=== PATIENT | male | born 1955 | race Caucasian/White ===

== ENCOUNTER 2023-01-24 12:53 | Emergency (ER) | payer MEDICARE, MEDICAID, SELFPAY ==
--- NOTE | ~2023-01-24 | XR_ITS ---
EXAMINATION: XR CHEST CLINICAL INFORMATION: Short of breath COMPARISON: None available. TECHNIQUE: 2 views of the chest were obtained. FINDINGS: Left chest wall pacer with lead over the right ventricle. The lungs are well expanded. There is no focal consolidation, edema, or effusion. No pneumothorax. The cardiomediastinal silhouette is within normal limits. No acute osseous abnormality. Degenerative changes of the spine. XR/XR chest 2V IMPRESSION: No acute pulmonary disease.
--- NOTE | 2023-01-24 13:03 | ED.SOB ---
HPI - SOB/Dyspnea General Chief Complaint: Upper Respiratory Symptoms Stated Complaint: SOB Time Seen by Provider: 01/24/23 15:00 History of Present Illness HPI Narrative: Patient complains of cough wheezing and chest tightness worsening known over the past 2 days, he does have a history of COPD, he does have a history of HIV but his last visit to his infectious disease doctor he was told that CD4 count is normal and that his viral load is very low and that he is doing great in terms of the HIV, this last visit was several weeks ago He denies fever chills no difficulty swallowing no chest pain no abdominal pain no nausea vomiting or diarrhea no leg swelling no calf pain or tenderness Related Data Previous Rx's Medication Instructions Recorded albuterol sulfate 90 mcg/actuation 2 puff inhalation Q4-6H PRN 01/24/23 aerosol inhaler shortness of breath or wheezing #8.5 grams doxycycline hyclate 100 mg capsule 100 mg PO BID 7 days #14 caps 01/24/23 prednisone 20 mg tablet 60 mg PO DAILY 5 days #15 tabs 01/24/23 Allergies Allergy/AdvReac Type Severity Reaction Status Date / Time No Known Allergies Allergy Verified 01/24/23 13:08 [facility] Past Medical History Source: nursing notes reviewed Physical Exam Vital Signs: Vital Signs: Last Vital Signs Temp 98.3 F 01/24/23 13:05 Pulse 79 01/24/23 15:46 Resp 18 01/24/23 15:46 BP 130/78 01/24/23 13:05 Pulse Ox 97 01/24/23 18:16 O2 Del Method Room Air 01/24/23 18:16 BMI result Body Mass Index 28.1 general appearance is no distress, speaking full sentences The sinuses nontender The pharynx is clear without redness swelling or exudate Neck is supple The chest had bilateral wheezes throughout lung billings, good air movement, no respiratory distress, speaking full sentences The abdomen soft nontender Extremities no edema no calf tenderness or swelling Skin no Course Course Course Narrative: This is a rapid medical exam. Deferred additional HPI, ROS, PE to primary provider. 67 yo male with history of tobacco smoking, HIV on genvoya, ICD, DVT/PE on coumadin here with 4 days of shortness of breath, headache, chest congestion, worsened with laying flat/ at nighttime. NO chest pain, fevers. Has +sick contact at home. Will check labs, EKG, CXR, viral testing VSS Patient responded well to nebulizer treatments and prednisone, and his wheezing improved as well as his sense of shortness of breath, prior to discharge she was tested ambulating with no drop in his oxygen saturation which had now improved to a normal level, his respiratory rate was 16, he did feel fine and wanted to go home His chest x-ray was normal, but as he has history of COPD who was prescribed antibiotic for bronchitis as well as prednisone and a refill of his albuterol inhaler Medications Administered Discontinued Medications Generic Name Dose Route Start Last Admin Trade Name Freq PRN Reason Stop Dose Admin Albuterol Sulfate 7.5 mg/ 0 mg 01/24/23 15:41 01/24/23 15:45 Albuterol/Ipratropium 3 ml INHALE 01/24/23 15:42 1 each ONCE ONE Administration Prednisone 60 mg 01/24/23 15:42 01/24/23 15:52 Prednisone 20 Mg Tablet PO 01/24/23 15:43 60 mg ONCE ONE Administration Medical Decision Making Lab Data 01/24/23 13:21 01/24/23 13:21 Labs: Lab Results 01/24/23 01/24/23 01/24/23 Range/Units 13:21 13:21 13:21 WBC 8.1 (4.8-10.8) X10*3/uL RBC 4.26 L (4.60-5.80) X10*6/uL Hgb 13.8 L (14.0-18.0) g/dl Hct 41.2 L (42.0-52.0) % MCV 96.7 (80.0-98.0) fL MCH 32.4 (27.0-33.0) pg MCHC 33.5 (31.0-36.0) g/dl RDW 13.5 (11.0-16.0) % Plt Count 177 (160-400) X10*3/uL MPV 9.5 (9.4-12.4) fL Immature Gran % (Auto) 0.2 (0.0-0.4) % Neut % (Auto) 61.7 (45-73) % Lymph % (Auto) 22.1 (20-40) % [place] % (Auto) 8.2 (2-11) % Eos % (Auto) 7.1 H (0-4) % Baso % (Auto) 0.7 (0-2) % Lymph # (Auto) 1.8 (1.2-4.9) X10*3/uL [place] # (Auto) 0.7 (0.1-1.2) X10*3/uL Eos # (Auto) 0.6 H (0.0-0.4) X10*3/uL Baso # (Auto) 0.1 (0.0-0.2) X10*3/uL Abs Immat Gran (auto) 0.02 (0.00-0.03) X10*3/uL Absolute Neuts (auto) 5.0 (2.0-8.3) x10*3/uL Absolute Nucleated RBC 0.000 (0.0-0.012) X10*3/uL Nucleated RBC % (auto) 0.0 (0.0-0.2) /100WBC PT 24.3 H (10.0-13.1) SEC INR 2.1 H (0.9-1.1) Sodium 139 (135-145) mmol/L Potassium 4.1 (3.3-5.1) mmol/L Chloride 106 (96-108) mmol/L Carbon Dioxide 22 (22-29) mmol/L Anion Gap 15 (12-20) BUN 21 H (9-16) mg/dL Creatinine 2.28 H (0.5-1.4) mg/dL Estim Creat Clear Calc 35.1 Estimated GFR 29 Random Glucose 99 (60-115) mg/dL Calcium 9.6 (8.4-10.2) mg/dL Troponin I High Sens (<3.5-35.0) ng/L B-Natriuretic Peptide (<100) pg/mL COVID-19 (DARIEN) (Negative) COVID-19 Clin Com Influenza Type A (PRATIK) (Negative) Influenza Type B (PRATIK) (Negative) Influenza A & B Note 01/24/23 01/24/23 01/24/23 Range/Units 13:21 13:21 13:21 WBC (4.8-10.8) X10*3/uL RBC (4.60-5.80) X10*6/uL Hgb (14.0-18.0) g/dl Hct (42.0-52.0) % MCV (80.0-98.0) fL MCH (27.0-33.0) pg MCHC (31.0-36.0) g/dl RDW (11.0-16.0) % Plt Count (160-400) X10*3/uL MPV (9.4-12.4) fL Immature Gran % (Auto) (0.0-0.4) % Neut % (Auto) (45-73) % Lymph % (Auto) (20-40) % [place] % (Auto) (2-11) % Eos % (Auto) (0-4) % Baso % (Auto) (0-2) % Lymph # (Auto) (1.2-4.9) X10*3/uL [place] # (Auto) (0.1-1.2) X10*3/uL Eos # (Auto) (0.0-0.4) X10*3/uL Baso # (Auto) (0.0-0.2) X10*3/uL Abs Immat Gran (auto) (0.00-0.03) X10*3/uL Absolute Neuts (auto) (2.0-8.3) x10*3/uL Absolute Nucleated RBC (0.0-0.012) X10*3/uL Nucleated RBC % (auto) (0.0-0.2) /100WBC PT (10.0-13.1) SEC INR (0.9-1.1) Sodium (135-145) mmol/L Potassium (3.3-5.1) mmol/L Chloride (96-108) mmol/L Carbon Dioxide (22-29) mmol/L Anion Gap (12-20) BUN (9-16) mg/dL Creatinine (0.5-1.4) mg/dL Estim Creat Clear Calc Estimated GFR Random Glucose (60-115) mg/dL Calcium (8.4-10.2) mg/dL Troponin I High Sens 6.7 (<3.5-35.0) ng/L B-Natriuretic Peptide < 10 (<100) pg/mL COVID-19 (DARIEN) (Negative) COVID-19 Clin Com Influenza Type A (PRATIK) Negative (Negative) Influenza Type B (PRATIK) Negative (Negative) Influenza A & B Note See Note 01/24/23 Range/Units 13:21 WBC (4.8-10.8) X10*3/uL RBC (4.60-5.80) X10*6/uL Hgb (14.0-18.0) g/dl Hct (42.0-52.0) % MCV (80.0-98.0) fL MCH (27.0-33.0) pg MCHC (31.0-36.0) g/dl RDW (11.0-16.0) % Plt Count (160-400) X10*3/uL MPV (9.4-12.4) fL Immature Gran % (Auto) (0.0-0.4) % Neut % (Auto) (45-73) % Lymph % (Auto) (20-40) % [place] % (Auto) (2-11) % Eos % (Auto) (0-4) % Baso % (Auto) (0-2) % Lymph # (Auto) (1.2-4.9) X10*3/uL [place] # (Auto) (0.1-1.2) X10*3/uL Eos # (Auto) (0.0-0.4) X10*3/uL Baso # (Auto) (0.0-0.2) X10*3/uL Abs Immat Gran (auto) (0.00-0.03) X10*3/uL Absolute Neuts (auto) (2.0-8.3) x10*3/uL Absolute Nucleated RBC (0.0-0.012) X10*3/uL Nucleated RBC % (auto) (0.0-0.2) /100WBC PT (10.0-13.1) SEC INR (0.9-1.1) Sodium (135-145) mmol/L Potassium (3.3-5.1) mmol/L Chloride (96-108) mmol/L Carbon Dioxide (22-29) mmol/L Anion Gap (12-20) BUN (9-16) mg/dL Creatinine (0.5-1.4) mg/dL Estim Creat Clear Calc Estimated GFR Random Glucose (60-115) mg/dL Calcium (8.4-10.2) mg/dL Troponin I High Sens (<3.5-35.0) ng/L B-Natriuretic Peptide (<100) pg/mL COVID-19 (DARIEN) Negative (Negative) COVID-19 Clin Com See Note Influenza Type A (PRATIK) (Negative) Influenza Type B (PRATIK) (Negative) Influenza A & B Note Discharge Plan Discharge Clinical Impression: COPD exacerbation Patient Disposition: Home, Self-Care Additional Instructions: Your treated with albuterol and prednisone here with very good improvement, your vital signs were normal, we checked it with walking and they did not go down As you have been coughing and bringing up sputum for several days we are treating bronchitis with doxycycline antibiotic It is very safe as you do not have a machine to take 6 puffs instead of 2 if 2 does not work as this will bring it close to equal and of an actual nebulizer treatment If your albuterol does not bring relief at home and UR short of breath come back to the ER any time for any worse condition any difficulty breathing any concerns Prescriptions: New doxycycline hyclate 100 mg capsule 100 mg PO BID 7 Days Qty: 14 0RF albuterol sulfate 90 mcg/actuation HFA aerosol inhaler 2 puff inhalation Q4-6H PRN (Reason: shortness of breath or wheezing) Qty: 8.5 0RF prednisone 20 mg tablet 60 mg PO DAILY 5 Days Qty: 15 0RF Interventions: ED Discharge Assessment Last Done: 01/24/23 18:17 Discharge Date/Time: 01/24/23 18:17
[2023-01-24 13:05] VITALS: BP 130/78; PULSE 88; RESP 18; TEMP 36.8; O2SAT 93; BMI 28.1
--- NOTE | 2023-01-24 13:08 | ECG_ITS ---
Test Reason : sob Blood Pressure : / mmHG Vent. Rate : 087 BPM Atrial Rate : 087 BPM P-R Int : 192 ms QRS Dur : 090 ms QT Int : 368 ms P-R-T Axes : 045 048 065 degrees QTc Int : 442 ms Normal sinus rhythm Normal ECG No previous ECGs available Referred By: Sherin Murphy Electronically Signed By:YULY CHA MD
[2023-01-24 13:30] LABS: MANUAL DIFF FLAG NO
[2023-01-24 13:32] LABS: Basophils Absolute Auto 0.1 X10*3/uL (0.0-0.2); Basophils Percent Auto 0.7 % (0-2); Eosinophils Absolute Auto 0.6 X10*3/uL (0.0-0.4); Eosinophils Percent Auto 7.1 % (0-4); Hematocrit 41.2 % (42.0-52.0); Hemoglobin 13.8 g/dl (14.0-18.0); Imm Gran Abs Auto 0.02 X10*3/uL (0.00-0.03); Imm Gran Pct Auto 0.2 % (0.0-0.4); Lymphocytes Absolute Auto 1.8 X10*3/uL (1.2-4.9); Lymphocytes Percent Auto 22.1 % (20-40); Mean Corpuscular HGB Conc 33.5 g/dl (31.0-36.0); Mean Corpuscular Hemoglobin 32.4 pg (27.0-33.0); Mean Corpuscular Volume 96.7 fL (80.0-98.0); Mean Platelet Volume 9.5 fL (9.4-12.4); Monocytes Absolute Auto 0.7 X10*3/uL (0.1-1.2); Monocytes Percent Auto 8.2 % (2-11); Neutrophils Percent Auto 61.7 % (45-73); Platelet Count 177 X10*3/uL (160-400); Red Blood Count 4.26 X10*6/uL (4.60-5.80); Red Cell Distribution Width 13.5 % (11.0-16.0); White Blood Count 8.1 X10*3/uL (4.8-10.8)
[2023-01-24 13:41] LABS: INTERNATIONAL NORM RATIO 2.1 (0.9-1.1); Prothrombin Time 24.3 SEC (10.0-13.1)
[2023-01-24 13:44] LABS: Anion Gap 15 (12-20); Blood Urea Nitrogen 21 mg/dL (9-16); Calcium 9.6 mg/dL (8.4-10.2); Carbon Dioxide 22 mmol/L (22-29); Chloride 106 mmol/L (96-108); Creatinine Clr Calc Pharmacy 35.1; Estimated Glomerular Filt Rate 29; Glucose Random 99 mg/dL (60-115); Potassium 4.1 mmol/L (3.3-5.1); Sodium 139 mmol/L (135-145)
[2023-01-24 13:49] LABS: IDNOW Serial# 9DB6401D; Influenza A Negative (Negative); Influenza B2 Negative (Negative)
[2023-01-24 13:52] LABS: B Type Natriuretic Peptide < 10 pg/mL (<100)
[2023-01-24 13:53] LABS: Troponin-I High Sensitivity 6.7 ng/L (<3.5-35.0)
[2023-01-24 14:01] LABS: COVID-19 Test Negative (Negative); IDNOW Serial# BCCEAD1C
[2023-01-24 15:46] VITALS: PULSE 79; RESP 18; O2SAT 99
[2023-01-24] MEDS: predniSONE 20 MG TABLET 60 MG PO (15:52)
[2023-01-24 18:16] VITALS: O2SAT 97
== END 2023-01-24 18:17 | disposition home or self-care (01) ==
PROVIDERS: Nurse Practitioner Family; Emergency Provider Emergency Medicine; PCP Family Medicine
DX: J44.1 Chronic obstructive pulmonary disease with (acute) exacerbation (principal); R06.02 Shortness of breath; Z20.822 Contact with and (suspected) exposure to COVID-19; Z20.828 Contact with and (suspected) exposure to other viral communicable diseases; Z79.899 Other long term (current) drug therapy
CPT/HCPCS: 71046; 80048; 83880; 84484; 85025; 85610; 87502; 87635; 93005; 94640; 99284; 99285

== ENCOUNTER 2023-02-14 08:08 | Outpatient (REF) | payer MEDICARE, MEDICAID, SELFPAY ==
--- NOTE | ~2023-02-14 | US_ITS ---
EXAMINATION: US ABDOMEN LIMITED CLINICAL INFORMATION: Liver disease. Hepatitis B. COMPARISON: None available. TECHNIQUE: Real-time imaging of the right upper quadrant abdominal viscera. Limited visualization due to bowel gas and body habitus. FINDINGS: PANCREAS: Limited visualization. LIVER: Hepatic echotexture is heterogeneous with increase in echogenicity of the liver which is characteristic of primary hepatocellular disease, possibly due to hepatic steatosis and further limits visualization. GALLBLADDER: No gallstones. Borderline gallbladder wall thickening of 3 mm. COMMON BILE DUCT: Normal in caliber measuring 0.2 cm in diameter. RIGHT KIDNEY: No hydronephrosis. No renal calculi. Renal cortical thickness is normal. Limited visualization. The kidney measures 9.6 cm in maximum dimension. FREE FLUID: None. US/US abdomen limited IMPRESSION: Hepatic echotexture is heterogeneous with increase in echogenicity of the liver which is characteristic of primary hepatocellular disease, possibly due to hepatic steatosis and further limits visualization.
== END 2023-02-14 08:09 | disposition home or self-care (01) ==
LOC: HO.US 08:08
PROVIDERS: PCP Family Medicine; Visit Provider Nurse Practitioner Adult Health
DX: B20 Human immunodeficiency virus [HIV] disease (principal); B18.1 Chronic viral hepatitis B without delta-agent
CPT/HCPCS: 76705

== ENCOUNTER 2023-03-14 10:33 | Outpatient (REF) | payer MEDICARE, MEDICAID, SELFPAY ==
[2023-03-14 11:50] LABS: Alanine Aminotransferase 16 U/L (0-40); Albumin Level 4.4 g/dL (3.5-5.0); Alkaline Phosphatase 86 U/L (39-117); Anion Gap 17 (12-20); Aspartate Amino Transferase 16 U/L (5-37); Bilirubin Total 0.5 mg/dL (0.0-1.0); Blood Urea Nitrogen 24 mg/dL (9-16); Calcium 9.5 mg/dL (8.4-10.2); Carbon Dioxide 21 mmol/L (22-29); Chloride 106 mmol/L (96-108); Estimated Glomerular Filt Rate 33; Glucose Random 107 mg/dL (60-115); Potassium 4.8 mmol/L (3.3-5.1); Sodium 139 mmol/L (135-145); Total Protein 7.7 g/dL (6.5-8.0)
[2023-03-14 12:01] LABS: HIV Num 1 368.55 S/CO (0.00-0.99)
[2023-03-14 14:50] LABS: HIV Num 3 367.78 S/CO
[2023-03-14 14:51] LABS: HIV AB/AG Reactive (Nonreactive)
[2023-03-21 11:39] LABS: HIV 2 Antibody NEGATIVE
[2023-03-21 11:40] LABS: HIV 1 Antibody POSITIVE (Abnormal)
== END 2023-03-14 10:34 | disposition home or self-care (01) ==
LOC: HO.LAB 10:33
PROVIDERS: PCP Family Medicine; Visit Provider Nurse Practitioner Adult Health
DX: B20 Human immunodeficiency virus [HIV] disease (principal)
CPT/HCPCS: 36415; 80053; 86701; 86702; 87389

== ENCOUNTER 2023-03-20 10:25 | Outpatient (REF) | payer MEDICARE, MEDICAID, SELFPAY ==
[2023-03-22 14:12] LABS: HIV RNA PCR Qn Copies NOT DETECTED copies/mL (NOT DETECTED); HIV RNA PCR Qn Log Copies NOT DETECTED (NOT DETECTED)
== END 2023-03-20 10:26 | disposition home or self-care (01) ==
LOC: HO.LAB 10:25
PROVIDERS: Visit Provider Nurse Practitioner Adult Health
DX: B20 Human immunodeficiency virus [HIV] disease (principal)
CPT/HCPCS: 36415; 87536

== ENCOUNTER 2023-03-30 19:43 | Inpatient (IN) | payer MEDICARE, MEDICAID, SELFPAY ==
--- NOTE | ~2023-03-30 | XR_ITS ---
EXAMINATION: XR ABDOMEN KUB CLINICAL INDICATION: Abdominal pain COMPARISON: None available. TECHNIQUE: AP view of the abdomen. FINDINGS: Nonobstructive bowel gas pattern. No dilated loops of bowel. Gas and stool throughout the colon with moderate to large colonic stool burden. Fixation hardware in the left femur. Heterotopic ossification. XR/XR KUB IMPRESSION: Nonobstructive bowel gas pattern. Moderate to large colonic stool burden.
--- NOTE | ~2023-03-30 | CT_ITS ---
EXAMINATION: CT ANGIOGRAM OF THE CHEST WITH AND WITHOUT CONTRAST (CT PULMONARY ANGIOGRAM FOR PE) CLINICAL INFORMATION: Reason for Exam Acute respiratory distress COMPARISON: Chest radiograph done on 03/30/2023. TECHNIQUE: Prior to contrast administration, noncontrast localization images were obtained. Subsequently, multidetector volumetric imaging was performed from the thoracic inlet to below the diaphragms following the administration of 65 mL Omnipaque 350 intravenous contrast. No contrast reaction reported Sagittal, coronal, and MIP oblique sagittal reformatted images were obtained on the CT workstation, uploaded to PACS, and reviewed. This CT examination was performed using dose optimization techniques as appropriate, variously including the following: *Automated exposure control *Adjustment of mA and/or kV according to patient size (this includes techniques or standardized protocols for targeted exams where dose is matched to indication/reason for exam; i.e. extremities or head) *Use of iterative reconstruction technique Total exam dose-length product 354 mGy-cm The patient apparently has elevated creatinine. However the requesting provider signed medical necessity for administration of intravenous contrast. FINDINGS: The entire study is technically limited due to significant motion related artifacts. QUALITY OF STUDY/CONTRAST BOLUS: Satisfactory. PULMONARY ARTERIES: No gross evidence of pulmonary emboli. THORACIC AORTA: No aneurysm. LUNG: Evaluation is limited due to motion artifacts. Moderate emphysematous disease. PLEURA: No pleural effusion or pneumothorax. MEDIASTINUM: Normal heart size. No pericardial effusion. No hilar or mediastinal lymphadenopathy. No evidence of septal bowing or right heart strain. CORONARY ARTERY CALCIFICATION: None visualized on this study. CHEST WALL/AXILLA: No axillary or internal mammary lymphadenopathy. OSSEOUS STRUCTURES: No acute or suspicious osseous abnormality. UPPER ABDOMEN: Suboptimally evaluated due to motion artifacts. No reflux of contrast into the hepatic veins to suggest elevated right heart pressures. CT/CT angio chest PE protocol IMPRESSION: 1. There the study is technically limited due to significant motion related artifacts. 2. No gross evidence of pulmonary thromboembolism. 3. Moderate emphysematous disease. VTE:
--- NOTE | ~2023-03-30 | XR_ITS ---
EXAMINATION: XR CHEST CLINICAL INFORMATION: Asthma. Shortness of breath. COMPARISON: None available. TECHNIQUE: Frontal view of the chest was obtained. FINDINGS: The cardiac and mediastinal contours are stable. Left subclavian single chamber pacemaker unchanged in position. Hilar and mediastinal contours are unremarkable. The lungs are clear. No pleural effusion or pneumothorax. Degenerative changes of the spine. XR/XR chest 1V IMPRESSION: No evidence for acute disease in the chest.
--- NOTE | ~2023-03-30 | XR_ITS ---
EXAMINATION: XR CHEST CLINICAL INFORMATION: Wheezing COMPARISON: 04/03/2023 TECHNIQUE: Frontal view of the chest was obtained. FINDINGS: Increased opacity and pleural effusion seen in the right lung base compared to the prior exam. Trace left pleural effusion is seen. Cardiac silhouette is stable. AICD is stable. XR/XR chest 1V IMPRESSION: Interval development of bilateral pleural effusions, right greater than left with underlying opacity in the right lung base
--- NOTE | ~2023-03-30 | XR_ITS ---
EXAMINATION: XR CHEST CLINICAL INFORMATION: Acute dyspnea. COMPARISON: Chest radiograph done on 01/24/2023. TECHNIQUE: Frontal view of the chest was obtained. FINDINGS: No significant abnormality is noted involving the heart, lungs, mediastinum, bony thorax or soft tissues. Single lead left pectoral pacemaker its tip seen projecting within the XR/XR chest 1V right-sided cardiac chamber. IMPRESSION: No radiographic evidence of acute cardiopulmonary disease, unchanged since 01/24/2023.
--- NOTE | 2023-03-30 19:49 | ECG_ITS ---
Test Reason : DYSPNEA Blood Pressure : / mmHG Vent. Rate : 111 BPM Atrial Rate : 111 BPM P-R Int : 146 ms QRS Dur : 086 ms QT Int : 344 ms P-R-T Axes : 058 064 063 degrees QTc Int : 467 ms Sinus tachycardia Nonspecific ST abnormality Abnormal ECG When compared with ECG of 24-JAN-2023 13:10, Heart rate has increased Referred By: Sunny Peterson Electronically Signed By:SANTIAGO DAVIS
[2023-03-30 19:54] VITALS: PULSE 113; RESP 20; TEMP 36.6; O2SAT 88; BMI 28.8
[2023-03-30 19:58] LABS: MANUAL DIFF FLAG NO
[2023-03-30 19:59] LABS: Basophils Absolute Auto 0.2 X10*3/uL (0.0-0.2); Basophils Percent Auto 1.6 % (0-2); Eosinophils Absolute Auto 0.9 X10*3/uL (0.0-0.4); Eosinophils Percent Auto 8.8 % (0-4); Hematocrit 44.6 % (42.0-52.0); Hemoglobin 15.4 g/dl (14.0-18.0); Imm Gran Abs Auto 0.04 X10*3/uL (0.00-0.03); Imm Gran Pct Auto 0.4 % (0.0-0.4); Lymphocytes Percent Auto 30.1 % (20-40); Mean Corpuscular HGB Conc 34.5 g/dl (31.0-36.0); Mean Corpuscular Hemoglobin 32.8 pg (27.0-33.0); Mean Corpuscular Volume 95.1 fL (80.0-98.0); Mean Platelet Volume 9.2 fL (9.4-12.4); Monocytes Absolute Auto 0.7 X10*3/uL (0.1-1.2); Monocytes Percent Auto 7.4 % (2-11); Neutrophils Absolute Auto 5.2 x10*3/uL (2.0-8.3); Neutrophils Percent Auto 51.7 % (45-73); Platelet Count 219 X10*3/uL (160-400); Red Blood Count 4.69 X10*6/uL (4.60-5.80); Red Cell Distribution Width 13.2 % (11.0-16.0)
[2023-03-30] MEDS: Albuterol Sulfate 7.5 MG, Albuterol/Iprat 2.5/0.5MG 3 ML 3 ML INHALE (20:00)
[2023-03-30 20:01] VITALS: PULSE 107; RESP 18; O2SAT 98
[2023-03-30 20:06] LABS: INTERNATIONAL NORM RATIO 1.1 (0.9-1.1); Prothrombin Time 13.8 SEC (11.1-13.3)
[2023-03-30 20:09] LABS: Partial Thromboplastin Time 32.2 SEC (26.0-36.4)
[2023-03-30] MEDS: methylPREDNISolone Sod Succ 125 MG/2 ML VIAL IVPUSH (20:11)
[2023-03-30] MEDS: Magnesium Sulfate/H2O 2 GM/50 ML PIGGYBACK IV (20:11)
[2023-03-30 20:17] LABS: Alanine Aminotransferase 20 U/L (0-40); Albumin Level 4.6 g/dL (3.5-5.0); Alkaline Phosphatase 91 U/L (39-117); Anion Gap 17 (12-20); Aspartate Amino Transferase 27 U/L (5-37); Blood Urea Nitrogen 19 mg/dL (9-16); COVID-19 Test Negative (Negative); Calcium 9.7 mg/dL (8.4-10.2); Carbon Dioxide 24 mmol/L (22-29); Chloride 104 mmol/L (96-108); Creatinine Clr Calc Pharmacy 41.1; Estimated Glomerular Filt Rate 34; Glucose Random 86 mg/dL (60-115); IDNOW Serial# 08D9AD1C; IDNOW Serial# BCCEAD1C; Influenza A Negative (Negative); Influenza B2 Negative (Negative); Potassium 4.2 mmol/L (3.3-5.1); Sodium 141 mmol/L (135-145); Total Protein 8.1 g/dL (6.5-8.0)
[2023-03-30 20:18] LABS: B Type Natriuretic Peptide 14 pg/mL (<100)
[2023-03-30 20:22] LABS: Lactic Acid 2.3 mmol/L (0.5-2.0)
--- NOTE | 2023-03-30 20:42 | ED.SOB ---
HPI - SOB/Dyspnea General Chief Complaint: Dyspnea Stated Complaint: wheezing,sob Time Seen by Provider: 03/30/23 19:47 Source: patient and EMS Mode of arrival: EMS Limitations: no limitations History of Present Illness HPI Narrative: 67-year-old male with history of HIV on antiviral medication presents with difficulty breathing. The symptoms started yesterday. Has been progressively getting worse. She has had no fevers or chills. He has had a cough that has been nonproductive. He denies any chest pain. There is no clear relieving or exacerbating features. Describes symptoms as severe. Denies a history of COPD or asthma. He did recently start a new HIV medication Biktarvy. He is wondering if this might be causing his symptoms. Related Data Previous Rx's Medication Instructions Recorded albuterol sulfate 90 mcg/actuation 2 puff inhalation Q4-6H PRN 01/24/23 aerosol inhaler shortness of breath or wheezing #8.5 grams doxycycline hyclate 100 mg capsule 100 mg PO BID 7 days #14 caps 01/24/23 prednisone 20 mg tablet 60 mg PO DAILY 5 days #15 tabs 01/24/23 Allergies Allergy/AdvReac Type Severity Reaction Status Date / Time No Known Allergies Allergy Verified 01/24/23 13:08 Review of Systems Review of Systems: CONSTITUTIONAL: Denies weight loss, fever and chills. HEENT: Denies changes in vision and hearing. RESPIRATORY: + SOB and cough. CV: Denies palpitations no CP. GI: Denies abdominal pain, nausea, vomiting and diarrhea. : Denies dysuria and urinary frequency. MSK: Denies myalgia and joint pain. SKIN: Denies rash and pruritus. NEUROLOGICAL: Denies headache and syncope. PSYCHIATRIC: Denies recent changes in mood. Denies anxiety and depression. All other ROS are negative unless in HPI PMFSH Past Medical History Medical History HIV (human immunodeficiency virus infection) Tobacco use disorder Social History Social History Alcohol intake: never Smoked in Last 30 Days: Yes Use of substances other than those prescribed or required for medical reasons: No Advance Directives: No Advance Directives Information Provided: No Physical Exam Vital Signs: Vital Signs: Last Vital Signs Temp 98 F 03/30/23 19:54 Pulse 112 H 03/30/23 20:55 Resp 18 03/30/23 20:55 BP 118/85 03/30/23 20:54 Pulse Ox 97 03/30/23 20:54 O2 Del Method Room Air 03/30/23 19:54 BMI result Body Mass Index 28.8 GEN: Well developed, + acute distress, alert, oriented HEENT: Normocephalic, atraumatic, normal external ears, nose appears normal, no oropharyngeal edema or exudates Eyes: Normal to appearance Neck: Supple, no lymphadenopathy Respiratory: Unable to talk in complete sentences, accessory muscle use, prolonged expiration, expiratory wheezes Cardiovascular: Regular rate and rhythm, no murmurs rubs or gallops Abdomen: Soft, nontender, nondistended, no guarding, no rebound Back: No CVA tenderness Extremities: No clubbing cyanosis or edema Neurologic: No focal neurologic deficits, cranial nerves 2-12 intact, strength is 5/5 bilaterally Skin: No rash Course Reevaluation(s) Reevaluation #1: After 3 DuoNeb, magnesium, patient is actually doing somewhat better but still very dyspnea, prolonged expiration expiratory wheezes. Is able to talk in sentences at this point. Will order additional nebulizer treatment at this time. X-ray did not reveal any obvious acute cardiopulmonary disease. Patient will need to be admitted to the hospital. Time: 20:44 Reevaluation #2: CT angiogram is negative for PE. He is doing much better at this time after extensive nebulizer treatment, magnesium. Patient will be admitted to the hospital. Time: 23:00 Medications Administered Discontinued Medications Generic Name Dose Route Start Last Admin Trade Name Issaq PRN Reason Stop Dose Admin Albuterol Sulfate 10 mg 03/30/23 20:41 03/30/23 20:55 Albuterol Sulfate (0.083%) 2.5 Mg/3 Ml Vial.Neb INHALE 03/30/23 20:42 10 mg ONCE ONE Administration Albuterol Sulfate 7.5 mg/ 0 mg 03/30/23 19:48 03/30/23 20:00 Albuterol/Ipratropium 3 ml INHALE 03/30/23 19:49 7.5 each ONCE ONE Administration Magnesium Sulfate 2 gm in 50 mls @ 25 mls/hr 03/30/23 19:48 03/30/23 22:11 Magnesium Sulfate/H2o IV 03/30/23 21:47 Infused ONCE ONE Infusion Sodium Chloride 1,000 mls @ 999 mls/hr 03/30/23 20:45 03/30/23 22:10 Ns IV 03/30/23 21:45 Infused .Q1H1M RONA Infusion Iohexol 100 ml 03/30/23 22:10 03/30/23 22:10 Iohexol 350 Mg/Ml 100 Ml Infus..Btl IV 03/30/23 22:11 65 ml ONCE ONE Administration Methylprednisolone Sodium Succinate 125 mg 03/30/23 19:48 03/30/23 20:11 Methylprednisolone Sod Succ 125 Mg/2 Ml Vial IVPUSH 03/30/23 19:49 125 mg ONCE ONE Administration Medical Decision Making Medical Decision Making [facility] Narrative: 67-year-old male with history of HIV presents with acute dyspnea. Examination revealed a male in acute respiratory distress with acute accessory muscle use, prolonged expiration, expiratory wheezes. There is no lower extremity edema. No history of PE or DVT. I will start the patient on Solu-Medrol, magnesium, nebulizer treatment. Will obtain x-ray, EKG. I suspect highly that patient will need to be admitted to the hospital for further evaluation and management. Differential diagnosis includes influenza, COVID infection, asthma, COPD, pneumonia, respiratory distress. Differential Diagnosis Differential Diagnoses: The differential diagnosis associated with the presentation includes (See above) Admission/Observation Consideration of admission/observation: Escalation of care including admission/observation considered Consult Healthcare Provider Management of the patient was discussed with: Hospitalist Lab Data [facility] Lab Attestation statement: I reviewed the patient's lab results. 03/30/23 19:51 03/30/23 19:51 Labs: Lab Results 03/30/23 03/30/23 03/30/23 Range/Units 19:51 19:51 19:51 WBC 10.0 (4.8-10.8) X10*3/uL RBC 4.69 (4.60-5.80) X10*6/uL Hgb 15.4 (14.0-18.0) g/dl Hct 44.6 (42.0-52.0) % MCV 95.1 (80.0-98.0) fL MCH 32.8 (27.0-33.0) pg MCHC 34.5 (31.0-36.0) g/dl RDW 13.2 (11.0-16.0) % Plt Count 219 (160-400) X10*3/uL MPV 9.2 L (9.4-12.4) fL Immature Gran % (Auto) 0.4 (0.0-0.4) % Neut % (Auto) 51.7 (45-73) % Lymph % (Auto) 30.1 (20-40) % [place] % (Auto) 7.4 (2-11) % Eos % (Auto) 8.8 H (0-4) % Baso % (Auto) 1.6 (0-2) % Lymph # (Auto) 3.0 (1.2-4.9) X10*3/uL [place] # (Auto) 0.7 (0.1-1.2) X10*3/uL Eos # (Auto) 0.9 H (0.0-0.4) X10*3/uL Baso # (Auto) 0.2 (0.0-0.2) X10*3/uL Abs Immat Gran (auto) 0.04 H (0.00-0.03) X10*3/uL Absolute Neuts (auto) 5.2 (2.0-8.3) x10*3/uL Absolute Nucleated RBC 0.000 (0.0-0.012) X10*3/uL Nucleated RBC % (auto) 0.0 (0.0-0.2) /100WBC PT (11.1-13.3) SEC INR (0.9-1.1) APTT (26.0-36.4) SEC Sodium 141 (135-145) mmol/L Potassium 4.2 (3.3-5.1) mmol/L Chloride 104 (96-108) mmol/L Carbon Dioxide 24 (22-29) mmol/L Anion Gap 17 (12-20) BUN 19 H (9-16) mg/dL Creatinine 1.97 H (0.5-1.4) mg/dL Estim Creat Clear Calc 41.1 Estimated GFR 34 Random Glucose 86 (60-115) mg/dL Lactic Acid (0.5-2.0) mmol/L Calcium 9.7 (8.4-10.2) mg/dL Total Bilirubin 1.0 (0.0-1.0) mg/dL AST 27 (5-37) U/L ALT 20 (0-40) U/L Alkaline Phosphatase 91 (39-117) U/L B-Natriuretic Peptide (<100) pg/mL Total Protein 8.1 H (6.5-8.0) g/dL Albumin 4.6 (3.5-5.0) g/dL COVID-19 (DARIEN) Negative (Negative) COVID-19 Clin Com See Note Influenza Type A (PRATIK) (Negative) Influenza Type B (PRATIK) (Negative) Influenza A & B Note 03/30/23 03/30/23 03/30/23 Range/Units 19:51 19:51 19:51 WBC (4.8-10.8) X10*3/uL RBC (4.60-5.80) X10*6/uL Hgb (14.0-18.0) g/dl Hct (42.0-52.0) % MCV (80.0-98.0) fL MCH (27.0-33.0) pg MCHC (31.0-36.0) g/dl RDW (11.0-16.0) % Plt Count (160-400) X10*3/uL MPV (9.4-12.4) fL Immature Gran % (Auto) (0.0-0.4) % Neut % (Auto) (45-73) % Lymph % (Auto) (20-40) % [place] % (Auto) (2-11) % Eos % (Auto) (0-4) % Baso % (Auto) (0-2) % Lymph # (Auto) (1.2-4.9) X10*3/uL [place] # (Auto) (0.1-1.2) X10*3/uL Eos # (Auto) (0.0-0.4) X10*3/uL Baso # (Auto) (0.0-0.2) X10*3/uL Abs Immat Gran (auto) (0.00-0.03) X10*3/uL Absolute Neuts (auto) (2.0-8.3) x10*3/uL Absolute Nucleated RBC (0.0-0.012) X10*3/uL Nucleated RBC % (auto) (0.0-0.2) /100WBC PT 13.8 H (11.1-13.3) SEC INR 1.1 (0.9-1.1) APTT 32.2 (26.0-36.4) SEC Sodium (135-145) mmol/L Potassium (3.3-5.1) mmol/L Chloride (96-108) mmol/L Carbon Dioxide (22-29) mmol/L Anion Gap (12-20) BUN (9-16) mg/dL Creatinine (0.5-1.4) mg/dL Estim Creat Clear Calc Estimated GFR Random Glucose (60-115) mg/dL Lactic Acid 2.3 H* (0.5-2.0) mmol/L Calcium (8.4-10.2) mg/dL Total Bilirubin (0.0-1.0) mg/dL AST (5-37) U/L ALT (0-40) U/L Alkaline Phosphatase (39-117) U/L B-Natriuretic Peptide 14 (<100) pg/mL Total Protein (6.5-8.0) g/dL Albumin (3.5-5.0) g/dL COVID-19 (DARIEN) (Negative) COVID-19 Clin Com Influenza Type A (PRATIK) (Negative) Influenza Type B (PRATIK) (Negative) Influenza A & B Note 03/30/23 Range/Units 19:51 WBC (4.8-10.8) X10*3/uL RBC (4.60-5.80) X10*6/uL Hgb (14.0-18.0) g/dl Hct (42.0-52.0) % MCV (80.0-98.0) fL MCH (27.0-33.0) pg MCHC (31.0-36.0) g/dl RDW (11.0-16.0) % Plt Count (160-400) X10*3/uL MPV (9.4-12.4) fL Immature Gran % (Auto) (0.0-0.4) % Neut % (Auto) (45-73) % Lymph % (Auto) (20-40) % [place] % (Auto) (2-11) % Eos % (Auto) (0-4) % Baso % (Auto) (0-2) % Lymph # (Auto) (1.2-4.9) X10*3/uL [place] # (Auto) (0.1-1.2) X10*3/uL Eos # (Auto) (0.0-0.4) X10*3/uL Baso # (Auto) (0.0-0.2) X10*3/uL Abs Immat Gran (auto) (0.00-0.03) X10*3/uL Absolute Neuts (auto) (2.0-8.3) x10*3/uL Absolute Nucleated RBC (0.0-0.012) X10*3/uL Nucleated RBC % (auto) (0.0-0.2) /100WBC PT (11.1-13.3) SEC INR (0.9-1.1) APTT (26.0-36.4) SEC Sodium (135-145) mmol/L Potassium (3.3-5.1) mmol/L Chloride (96-108) mmol/L Carbon Dioxide (22-29) mmol/L Anion Gap (12-20) BUN (9-16) mg/dL Creatinine (0.5-1.4) mg/dL Estim Creat Clear Calc Estimated GFR Random Glucose (60-115) mg/dL Lactic Acid (0.5-2.0) mmol/L Calcium (8.4-10.2) mg/dL Total Bilirubin (0.0-1.0) mg/dL AST (5-37) U/L ALT (0-40) U/L Alkaline Phosphatase (39-117) U/L B-Natriuretic Peptide (<100) pg/mL Total Protein (6.5-8.0) g/dL Albumin (3.5-5.0) g/dL COVID-19 (DARIEN) (Negative) COVID-19 Clin Com Influenza Type A (PRATIK) Negative (Negative) Influenza Type B (PRATIK) Negative (Negative) Influenza A & B Note See Note Independent Interpretation I performed an independent interpretation of an: EKG (Sinus tachycardia heart rate 111, nonspecific ST T wave changes, normal intervals.), Plain X-Ray (Chest: No acute cardiopulmonary disease) and CT Scan (Angio chest: No acute pulmonary embolus) Radiology Impression Discussion of test interpretation with radiology: I have reviewed the radiologist's reading. Radiologist Impression: CT/CT angio chest PE protocol IMPRESSION: ? 1. There the study is technically limited due to significant motion related artifacts. 2. No gross evidence of pulmonary thromboembolism. 3. Moderate emphysematous disease. ? VTE: Dictated By: Oneil Delatorre MD Signed By: <Electronically signed by Oneil Delatorre MD in [place]> 03/30/23 0257 Independent Historian Clinical information obtained from an independent historian. History obtained from or confirmed by: EMS Prescription Management I considered prescription management with: Antiviral and Antibiotic Chronic Conditions Patient?s care impacted by: Other (HIV) Critical Care Time Critical Care Time Critical Care Time: Yes Total Critical Care Time: 65 Attestation: Due to a high probability of clinically significant, life threatening deterioration, the patient required my highest level of preparedness to intervene emergently and I personally spent this critical care time directly and personally managing the patient. This critical care time included obtaining a history; examining the patient; pulse oximetry; ordering and review of studies; arranging urgent treatment with development of a management plan; evaluation of patient's response to treatment; frequent reassessment; and, discussions with other providers. This critical care time was performed to assess and manage the high probability of imminent, life-threatening deterioration that could result in multi-organ failure. It was exclusive of separately billable procedures and treating other patients and teaching time. Discharge Plan Discharge Clinical Impression: Acute respiratory distress Patient Disposition: Admitted As Inpatient
[2023-03-30 20:54] VITALS: BP 118/85; PULSE 112; O2SAT 97
[2023-03-30 20:55] VITALS: PULSE 112; RESP 18; O2SAT 98
[2023-03-30] MEDS: Albuterol Sulfate (0.083%) 2.5 MG/3 ML VIAL.NEB 10 MG INHALE (20:55)
[2023-03-30] MEDS: 0.9 % Sodium Chloride 1,000 ML 999 ML IV (20:59)
--- NOTE | 2023-03-30 21:00 | PC.NURSE ---
Pt A&Ox4, brought in from [facility] via W/C, Pt dysneic, not speaking in full sentences, Spo2 90%, expiratory wheezing, reports pain with coughing to ribs and chest. Pt reports dry cough, states feels like there is something stuck and does not want to come up . RT at bedside, Pt receiving breathing tx.
--- NOTE | 2023-03-30 21:29 | PM.IMHP ---
History of Present Illness Date of Service: 03/30/23 Chief Complaint: Dyspnea This is a 67-year-old male with pertinent history of HIV on Biktarvy, mood disorder, tobacco use disorder who presents to the emergency department for evaluation of dyspnea. Patient states it started 3 days prior to presentation. It has been progressive and worse with ambulation. Also has been having wheezing and nonproductive cough. No fevers or chills. Patient admits to smoking cigarettes but denies ever being diagnosed with COPD or asthma. Not on home inhalers. Does not use oxygen at home. States he is compliant with his HIV medication. No chest discomfort, palpitations, abdominal pain, changes in urinary or bowel habits. In the emergency department, patient with significant wheezing despite multiple DuoNeb treatments. Review of Systems Constitutional: Constitutional: Reports fatigue Cardiovascular: Cardiovascular: Reports dyspnea on exertion Respiratory: Respiratory: Reports cough, Reports dyspnea on exertion and Reports wheezing Endocrine: Endocrine: Reports fatigue Allergic/Immunologic: Allergic/Immunologic: Reports wheezing [facility] Medical History HIV (human immunodeficiency virus infection) Mood disorder Tobacco use disorder Pertinent family history: No family history of early CAD Social History Alcohol intake: never Smoked in Last 30 Days: Yes Use of substances other than those prescribed or required for medical reasons: No Advance Directives: No Advance Directives Information Provided: No Meds Allergies Allergy/AdvReac Type Severity Reaction Status Date / Time No Known Allergies Allergy Verified 01/24/23 13:08 Active Medications: Current Medications Magnesium Sulfate (Magnesium Sulfate/H2o) 2 gm in 50 mls @ 25 mls/hr IV ONCE ONE Stop: 03/30/23 21:47 Last Admin: 03/30/23 20:11 Dose: 25 mls/hr Sodium Chloride (Ns) 1,000 mls @ 999 mls/hr IV .Q1H1M RONA Stop: 03/30/23 21:45 Last Admin: 03/30/23 20:59 Dose: 999 mls/hr Pharmacy Consult (Consult Rx Perform Med Rec) 1 each MISCELLANE ONCE PRN PRN Reason: Consult order Physical Exam Vital Signs and Narrative: Vital Signs: Last Vital Signs Temp 98 F 03/30/23 19:54 Pulse 112 H 08/19/23 20:55 Resp 18 03/30/23 20:55 BP 118/85 03/30/23 20:54 Pulse Ox 97 03/30/23 20:54 O2 Del Method Room Air 03/30/23 19:54 BMI result Body Mass Index 28.8 Middle-aged male lying in bed in mild distress Neck supple, no JVD Tachycardic with regular rhythm, S1-S2 heard Bilateral wheezing without crackles Abdomen soft nontender, no guarding, no rigidity Patient is awake, alert and oriented to self, place, time and person ; no focal motor deficit Psych: Normal mood No pedal edema Results Labs 03/30/23 19:51 03/30/23 19:51 Labs: Laboratory Results - last 24 hr 03/30/23 03/30/23 03/30/23 19:51 19:51 19:51 MCV 95.1 MCH 32.8 MCHC 34.5 RDW 13.2 Plt Count 219 MPV 9.2 L Immature Gran % (Auto) 0.4 Neut % (Auto) 51.7 Lymph % (Auto) 30.1 [place] % (Auto) 7.4 Eos % (Auto) 8.8 H Baso % (Auto) 1.6 Lymph # (Auto) 3.0 [place] # (Auto) 0.7 Eos # (Auto) 0.9 H Baso # (Auto) 0.2 Abs Immat Gran (auto) 0.04 H Absolute Neuts (auto) 5.2 Absolute Nucleated RBC 0.000 Nucleated RBC % (auto) 0.0 PT INR APTT Anion Gap 17 Estim Creat Clear Calc 41.1 Estimated GFR 34 Random Glucose 86 Lactic Acid Calcium 9.7 Total Bilirubin 1.0 AST 27 ALT 20 Alkaline Phosphatase 91 B-Natriuretic Peptide Total Protein 8.1 H Albumin 4.6 COVID-19 (DARIEN) Negative COVID-19 Clin Com See Note Influenza Type A (PRATIK) Influenza Type B (PRATIK) Influenza A & B Note 03/30/23 03/30/23 03/30/23 19:51 19:51 19:51 MCV MCH MCHC RDW Plt Count MPV Immature Gran % (Auto) Neut % (Auto) Lymph % (Auto) [place] % (Auto) Eos % (Auto) Baso % (Auto) Lymph # (Auto) [place] # (Auto) Eos # (Auto) Baso # (Auto) Abs Immat Gran (auto) Absolute Neuts (auto) Absolute Nucleated RBC Nucleated RBC % (auto) PT 13.8 H INR 1.1 APTT 32.2 Anion Gap Estim Creat Clear Calc Estimated GFR Random Glucose Lactic Acid 2.3 H* Calcium Total Bilirubin AST ALT Alkaline Phosphatase B-Natriuretic Peptide 14 Total Protein Albumin COVID-19 (DARIEN) COVID-19 Clin Com Influenza Type A (PRATIK) Influenza Type B (PRATIK) Influenza A & B Note 03/30/23 19:51 MCV MCH MCHC RDW Plt Count MPV Immature Gran % (Auto) Neut % (Auto) Lymph % (Auto) [place] % (Auto) Eos % (Auto) Baso % (Auto) Lymph # (Auto) [place] # (Auto) Eos # (Auto) Baso # (Auto) Abs Immat Gran (auto) Absolute Neuts (auto) Absolute Nucleated RBC Nucleated RBC % (auto) PT INR APTT Anion Gap Estim Creat Clear Calc Estimated GFR Random Glucose Lactic Acid Calcium Total Bilirubin AST ALT Alkaline Phosphatase B-Natriuretic Peptide Total Protein Albumin COVID-19 (DARIEN) COVID-19 Clin Com Influenza Type A (PRATIK) Negative Influenza Type B (PRATIK) Negative Influenza A & B Note See Note Imaging Radiologist's Impressions: Impressions Chest X-Ray 03/30/23 20:11 right-sided cardiac chamber. IMPRESSION: No radiographic evidence of acute cardiopulmonary disease, unchanged since 01/24/2023. Assessment and Plan (1) Acute respiratory distress: Status: Acute Plan This is a 67-year-old male with pertinent history of HIV on Biktarvy, mood disorder, tobacco use disorder who presents to the emergency department for evaluation of dyspnea. #. Acute respiratory distress secondary to acute exacerbation of obstructive lung disease. No official diagnosis but patient likely has COPD as patient is chronic smoker. Will admit patient with supplemental oxygen. Scheduled and p.r.n. DuoNebs. Initiating systemic steroids. Will need outpatient follow-up with pulmonology. Initiating azithromycin for pleiotropic effect #. HIV. Continue home meds. Unknown last CD4 count #. Tobacco use disorder. Refused nicotine patch #. Mood disorder. Continue home mood stabilizers #. Chronic kidney disease. Creatinine at baseline Med rec pending DVT prophylaxis: Lovenox Full code Time Spent With Patient Time: Total time managing care of this patient today ____ minutes. Quality Stroke Does the patient have a stroke diagnosis?: No VTE Prior VTE?: No VTE Risk Level:: Medical - moderate - high VTE Device Contraindication: Treatment Not Indicated VTE Drug Contraindication: N/A - Med Ordered
[2023-03-30 22:05] LABS: Reflex Lactate? Lactic Acid Added
[2023-03-30] MEDS: iohexoL 350 MG/ML 100 ML INFUS..BTL IV (22:10)
[2023-03-30 23:37] VITALS: BP 137/87; PULSE 107; RESP 20; TEMP 37; O2SAT 94
[2023-03-31] VITALS (11 sets, daily range): BP systolic 125–141; BP diastolic 66–80; PULSE 99–110; RESP 12–22; TEMP 36–36.8; O2SAT 91–97; BMI 30.9
[2023-03-31 00:03] LABS: ~Lactic Acid-LAB USE ONLY 5.2 mmol/L (0.5-2.0)
[2023-03-31] MEDS: Azithromycin 500 MG in 0.9 % Sodium Chloride 250 ML 125 MG IV ×2 (00:06→21:30)
[2023-03-31 01:40] LABS: Reflex Lactate? 2 Y
[2023-03-31 02:13] LABS: ~Lactic Acid-LAB USE ONLY 7.8 mmol/L (0.5-2.0)
[2023-03-31 02:35] LABS: MANUAL DIFF FLAG NO
[2023-03-31 02:36] LABS: Basophils Absolute Auto 0.1 X10*3/uL (0.0-0.2); Basophils Percent Auto 0.6 % (0-2); Eosinophils Absolute Auto 0.1 X10*3/uL (0.0-0.4); Eosinophils Percent Auto 0.7 % (0-4); Hematocrit 40.9 % (42.0-52.0); Hemoglobin 13.5 g/dl (14.0-18.0); Imm Gran Abs Auto 0.04 X10*3/uL (0.00-0.03); Imm Gran Pct Auto 0.5 % (0.0-0.4); Lymphocytes Absolute Auto 0.7 X10*3/uL (1.2-4.9); Lymphocytes Percent Auto 8.3 % (20-40); Mean Corpuscular Hemoglobin 32.3 pg (27.0-33.0); Mean Corpuscular Volume 97.8 fL (80.0-98.0); Mean Platelet Volume 9.6 fL (9.4-12.4); Monocytes Percent Auto 0.5 % (2-11); Neutrophils Absolute Auto 7.7 x10*3/uL (2.0-8.3); Neutrophils Percent Auto 89.4 % (45-73); Platelet Count 181 X10*3/uL (160-400); Red Blood Count 4.18 X10*6/uL (4.60-5.80); Red Cell Distribution Width 13.2 % (11.0-16.0); Venous Blood Gas Refer to POC result; White Blood Count 8.6 X10*3/uL (4.8-10.8)
[2023-03-31 02:40] LABS: VBG Base Excess -8.4 mmol/L; VBG HCO3 16 mmol/L (22-26); VBG pCO2 33 mmHg; VBG pO2 51 mmHg
[2023-03-31 02:54] LABS: Anion Gap 23 (12-20); Blood Urea Nitrogen 21 mg/dL (9-16); Calcium 9.3 mg/dL (8.4-10.2); Carbon Dioxide 16 mmol/L (22-29); Chloride 107 mmol/L (96-108); Creatinine Clr Calc Pharmacy 37.8; Estimated Glomerular Filt Rate 31; Glucose Random 147 mg/dL (60-115); Potassium 4.4 mmol/L (3.3-5.1); Sodium 142 mmol/L (135-145)
--- NOTE | 2023-03-31 03:10 | PM.EVENT ---
Event Note Date of Service: 03/31/23 Event Note: Noted lactic acidosis. Likely in the setting of hypoxemia and albuterol use. Obtain VBG and will administer sodium bicarb if pH is low. Although patient without significant abdominal discomfort, will obtain KUB. Repeat lactic acid and ABG in a.m.. Time Spent With Patient Time: Total time managing care of this patient today ____ minutes.
--- NOTE | 2023-03-31 03:13 | PM.EVENT ---
Event Note Date of Service: 03/31/23 Event Note: Patient noted to be hypoxemic. Will admit as inpatient as patient will likely require two night minimum hospital stay for supplemental oxygen. Continue supplemental oxygen and wean as tolerated. Maintain oxygen saturation greater than 88-90% Time Spent With Patient Time: Total time managing care of this patient today ____ minutes.
[2023-03-31] MEDS: Sodium Bicarbonate 8.4% 50 MEQ/50 ML SYRINGE IVPUSH (03:23)
[2023-03-31] MEDS: 0.9 % Sodium Chloride 500 ML IV (03:28)
--- NOTE | 2023-03-31 06:07 | PC.NURSE ---
Pt ambulated to the BR with steady gait, provided urine sample. Pt back in room sitting on stretcher states speaking in small words, I feel the same as I did before I came in , Pt dysneic, Spo2 94% on RA, lung sounds wheezing, placed back on 2L via NC. RT called for PRN tx.
[2023-03-31 06:14] LABS: Appearance Urine Clear; Color Urine Yellow; Glucose Urine UA Negative (Negative); Leukocyte Esterase Urine Negative (Negative); Nitrite Urine Negative (Negative); PH 5.5 (5.0-9.0); Specific Gravity - Urine >= 1.030 (1.005-1.025); UMIC TRIGGER UACC YES; Urine Blood Moderate (2+) (Negative); Urine Ketones Trace mg/dL (Negative); Urine Protein Trace mg/dL (Neg-Trace)
[2023-03-31] MEDS: Albuterol/Iprat 2.5/0.5MG 3 ML AMPUL.NEB INHALE ×7 (06:16→23:52)
[2023-03-31 06:23] LABS: Bacteria Urine None Seen (None Seen); Hyaline Casts Urine 0-2 /LPF (0-2); RBC Urine >20 /HPF (0-2); Squamous Epithelial Cell Urine 0-2 /HPF (0-2); WBC Urine 0-5 /HPF (0-5)
--- NOTE | 2023-03-31 07:02 | PHA.MEDREC ---
Pharmacy Consult ? Medication Reconciliation Pharmacy has completed the medication reconciliation. Med rec checked in am
[2023-03-31 07:12] LABS: Venous Blood Gas Refer to POC result
[2023-03-31 07:12] LABS: VBG Base Excess -6.1 mmol/L; VBG HCO3 19 mmol/L (22-26); VBG pCO2 37 mmHg; VBG pH 7.32 (7.32-7.43); VBG pO2 53 mmHg
[2023-03-31 07:20] LABS: Lactic Acid 8.2 mmol/L (0.5-2.0)
--- NOTE | 2023-03-31 07:46 | PC.NURSE ---
Dr. Pearce made aware of elevated lactic 8.2
[2023-03-31] MEDS: Atorvastatin Calcium 40 MG TABLET PO (08:17)
[2023-03-31] MEDS: methylPREDNISolone Sod Succ 40 MG/ML VIAL 60 MG IVPUSH ×3 (08:23→23:55)
[2023-03-31] MEDS: 0.9 % Sodium Chloride Flush 3 ML SYRINGE IVFLUSH ×2 (08:24→23:44)
--- NOTE | 2023-03-31 08:40 | PC.NURSE ---
pt tremulous on examination. tahcycardic. LS wheezy throughout. pt reporting sob, on 2L NC for comfort. respiratory assessing pt at bedside r/t need for additional updraft. encouraged pt at this time not to ambulate to bathroom, to be using a bedside commode/urinal.
[2023-03-31 08:55] LABS: Amphetamine Screen Urine Not Detected (Not Detect); Barbiturates, Urine Not Detected (Not Detect); Benzodiazepines Screen Urine POSITIVE (Not Detect); Cannabinoid Screen Urine Not Detected (Not Detect); Cocaine Screen Urine Not Detected (Not Detect); Opiate Screen Urine Not Detected (Not Detect); Phencyclidine Screen Urine Not Detected (Not Detect)
[2023-03-31] MEDS: buPROPion HCl XL 300 MG TAB.ER.24H PO (09:01)
[2023-03-31] MEDS: QUEtiapine Fumarate 200 MG TABLET PO ×2 (09:01→20:18)
[2023-03-31] MEDS: Escitalopram Oxalate 20 MG TABLET PO (09:01)
[2023-03-31 09:02] LABS: Reflex Lactate? Lactic Acid Added
[2023-03-31] MEDS: Acetaminophen 325 MG TABLET 650 MG PO (09:08)
[2023-03-31] MEDS: clonazePAM 1 MG TABLET PO ×2 (09:08→23:49)
[2023-03-31] MEDS: Bictegrav/Emtricit/Tenofov Ala TABLET 1 TAB PO (09:08)
[2023-03-31] MEDS: Rivaroxaban 15 MG TABLET PO (09:08)
[2023-03-31] MEDS: Lactated Ringers 1,000 ML 100 ML IVCONT ×2 (09:30→19:38)
[2023-03-31 09:37] LABS: ~Lactic Acid-LAB USE ONLY 6.8 mmol/L (0.5-2.0)
--- NOTE | 2023-03-31 10:29 | PC.NURSE ---
pt stood at bedside to use bedside urinal,. following, pt with increased work of breathing, tachycardic in the 120s, tachypnic, SaO2 95% on 2L. pt with constant cough, wheezing, using accessory muscles
[2023-03-31 11:15] LABS: Reflex Lactate? 2 Y
[2023-03-31] MEDS: guaiFENesin DM 200/20/10 ML 10 ML SYRUP PO ×3 (11:38→20:18)
[2023-03-31 11:46] LABS: ~Lactic Acid-LAB USE ONLY 6.1 mmol/L (0.5-2.0)
--- NOTE | 2023-03-31 13:50 | P.PNIM_ITS ---
Subjective Subjective Date of Service: 04/01/23 Interval History: complaining of shortness of breath and cough, complaining of chest and abdominal wall discomfort due to coughing, recently switch from Coumadin to Xarelto Coumadin was held for 10 days prior to starting Xarelto due to dental work, also recently placed on Biktarvy, denies nausea vomiting, no diarrhea is constipated no urinary symptoms of urgency or frequency. Review of Systems all other system reviewed and negative. Physical Exam Vital Signs: Vital Signs: Last Vital Signs Temp 98.3 F 03/31/23 06:31 Pulse 108 H 03/31/23 08:25 Resp 12 03/31/23 08:25 BP 140/80 H 03/31/23 08:25 Pulse Ox 97 03/31/23 08:25 O2 Del Method Nasal Cannula 03/31/23 08:25 O2 Flow Rate 2 03/31/23 08:25 BMI result Body Mass Index 28.8 Const: Other: General noted to have mild respiratory distress with bilateral audible expiratory wheeze, able to communicate in full sentences. Neck supple no JVD. CVS regular rate rhythm, Respiratory lungs bilateral expiratory wheeze no use of accessory muscles, no rales. Gastrointestinal abdomen soft, non tender, bowel sounds audible, no guarding , no rigidity. Extremities no edema. Neuro nonfocal moving all 4 extremity speech clear. Skin no rash psych appropriate affect Objective Data Active Medications Acetaminophen (Acetaminophen 325 Mg Tablet) 650 mg PO Q6H PRN PRN Reason: Pain, Mild (Pain Scale 1-3) Last Admin: 03/31/23 09:08 Dose: 650 mg Documented By: FREEDRICK Albuterol/Ipratropium (Albuterol/Iprat 2.5/0.5mg 3 Ml Ampul.Neb) 3 ml INHALE RQ 4H WHILE AWAKE [facility] Last Admin: 03/31/23 12:00 Dose: 3 ml Documented By: BETHEL Albuterol/Ipratropium (Albuterol/Iprat 2.5/0.5mg 3 Ml Ampul.Neb) 3 ml INHALE Q4H PRN PRN Reason: Wheezing Last Admin: 03/31/23 10:36 Dose: 3 ml Documented By: BETHEL Atorvastatin Calcium (Atorvastatin Calcium 40 Mg Tablet) 40 mg PO DAILY [facility] Last Admin: 03/31/23 08:17 Dose: 40 mg Documented By: FREDERICK Bupropion HCl (Bupropion Hcl Xl 300 Mg Tab.Er.24h) 300 mg PO DAILY [facility] Last Admin: 03/31/23 09:01 Dose: 300 mg Documented By: FREDERICK Clonazepam (Clonazepam 1 Mg Tablet) 1 mg PO BID PRN PRN Reason: Anxiety Last Admin: 03/31/23 09:08 Dose: 1 mg Documented By: FREDEIRCK Escitalopram Oxalate (Escitalopram Oxalate 20 Mg Tablet) 20 mg PO DAILY [facility] Last Admin: 03/31/23 09:01 Dose: 20 mg Documented By: FREDERICK Guaifenesin/Dextromethorphan (Guaifenesin Dm 200/20/10 Ml 10 Ml Syrup) 10 ml PO QID [facility] Last Admin: 03/31/23 11:38 Dose: 10 ml Documented By: FREDERICK Azithromycin 500 mg/ Sodium (Chloride) 250 mls @ 125 mls/hr IV 2200 [facility] Last Infusion: 03/31/23 02:20 Dose: 0 mls/hr Documented By: DEDEANX Lactated Ringer's (Lr) 1,000 mls @ 100 mls/hr IVCONT .Q10H [facility] Last Admin: 03/31/23 09:30 Dose: 100 mls/hr Documented By: FREDERICK Levothyroxine Sodium (Levothyroxine Sodium 50 Mcg Tablet) 50 mcg PO DAILY@0630 [facility] Melatonin (Melatonin 3 Mg Tablet) 6 mg PO BEDTIME PRN PRN Reason: Insomnia Methylprednisolone Sodium Succinate (Methylprednisolone Sod Succ 40 Mg/Ml Vial) 60 mg IVPUSH Q8H [facility] Last Admin: 03/31/23 08:23 Dose: 60 mg Documented By: FREDERICK Ondansetron HCl (Ondansetron Hcl 4 Mg/2 Ml Vial) 4 mg IVPUSH Q8H PRN PRN Reason: Nausea and Vomiting Pharmacy Consult (Consult Rx Perform Med Rec) 1 each MISCELLANE ONCE PRN PRN Reason: Consult order Quetiapine Fumarate (Quetiapine Fumarate 200 Mg Tablet) 200 mg PO BID [facility] Last Admin: 03/31/23 09:01 Dose: 200 mg Documented By: FREDERICK Rivaroxaban (Rivaroxaban 15 Mg Tablet) 15 mg PO DAILY [facility] Last Admin: 08/20/23 09:08 Dose: 15 mg Documented By: FREDERICK Sodium Chloride (0.9 % Sodium Chloride Flush 3 Ml Syringe) 3 ml IVFLUSH [facility] Last Admin: 03/31/23 08:24 Dose: 3 ml Documented By: FREDERICK Labs 03/31/23 02:30 03/31/23 02:30 Labs: Laboratory Results - last 24 hr 03/30/23 03/30/23 03/30/23 19:51 19:51 19:51 MCV 95.1 MCH 32.8 MCHC 34.5 RDW 13.2 Plt Count 219 MPV 9.2 L Immature Gran % (Auto) 0.4 Neut % (Auto) 51.7 Lymph % (Auto) 30.1 Whitley % (Auto) 7.4 Eos % (Auto) 8.8 H Baso % (Auto) 1.6 Lymph # (Auto) 3.0 Whitley # (Auto) 0.7 Eos # (Auto) 0.9 H Baso # (Auto) 0.2 Abs Immat Gran (auto) 0.04 H Absolute Neuts (auto) 5.2 Absolute Nucleated RBC 0.000 Nucleated RBC % (auto) 0.0 PT INR APTT VBG pH VBG pCO2 VBG pO2 VBG HCO3 VBG O2 Saturation VBG Base Excess Anion Gap 17 Estim Creat Clear Calc 41.1 Estimated GFR 34 Random Glucose 86 Lactic Acid Lactic Acid F/U @ 2Hr Lactic Acid F/U @ 4Hr Calcium 9.7 Total Bilirubin 1.0 AST 27 ALT 20 Alkaline Phosphatase 91 B-Natriuretic Peptide Total Protein 8.1 H Albumin 4.6 Urine Color Urine Appearance Urine pH Ur Specific [place] Urine Protein Urine Glucose (UA) Urine Ketones Urine Blood Urine Nitrite Ur Leukocyte Esterase Urine RBC Urine WBC Ur Squamous Epith Cells Urine Bacteria Hyaline Casts Urine Opiates Screen Ur Barbiturates Screen Ur Phencyclidine Scrn Ur Amphetamines Screen U Benzodiazepines Scrn Urine Cocaine Screen U Marijuana (THC) Screen COVID-19 (DARIEN) Negative COVID-19 Clin Com See Note Influenza Type A (PRATIK) Influenza Type B (PRATIK) Influenza A & B Note 03/30/23 03/30/23 03/30/23 19:51 19:51 19:51 MCV MCH MCHC RDW Plt Count MPV Immature Gran % (Auto) Neut % (Auto) Lymph % (Auto) Whitley % (Auto) Eos % (Auto) Baso % (Auto) Lymph # (Auto) [place] # (Auto) Eos # (Auto) Baso # (Auto) Abs Immat Gran (auto) Absolute Neuts (auto) Absolute Nucleated RBC Nucleated RBC % (auto) PT 13.8 H INR 1.1 APTT 32.2 VBG pH VBG pCO2 VBG pO2 VBG HCO3 VBG O2 Saturation VBG Base Excess Anion Gap Estim Creat Clear Calc Estimated GFR Random Glucose Lactic Acid 2.3 H* Lactic Acid F/U @ 2Hr Lactic Acid F/U @ 4Hr Calcium Total Bilirubin AST ALT Alkaline Phosphatase B-Natriuretic Peptide 14 Total Protein Albumin Urine Color Urine Appearance Urine pH Ur Specific [place] Urine Protein Urine Glucose (UA) Urine Ketones Urine Blood Urine Nitrite Ur Leukocyte Esterase Urine RBC Urine WBC Ur Squamous Epith Cells Urine Bacteria Hyaline Casts Urine Opiates Screen Ur Barbiturates Screen Ur Phencyclidine Scrn Ur Amphetamines Screen U Benzodiazepines Scrn Urine Cocaine Screen U Marijuana (THC) Screen COVID-19 (DARIEN) COVID-19 Clin Com Influenza Type A (PRATIK) Influenza Type B (PRATIK) Influenza A & B Note 03/30/23 03/30/23 03/31/23 19:51 23:36 01:48 MCV MCH MCHC RDW Plt Count MPV Immature Gran % (Auto) Neut % (Auto) Lymph % (Auto) [place] % (Auto) Eos % (Auto) Baso % (Auto) Lymph # (Auto) [place] # (Auto) Eos # (Auto) Baso # (Auto) Abs Immat Gran (auto) Absolute Neuts (auto) Absolute Nucleated RBC Nucleated RBC % (auto) PT INR APTT VBG pH VBG pCO2 VBG pO2 VBG HCO3 VBG O2 Saturation VBG Base Excess Anion Gap Estim Creat Clear Calc Estimated GFR Random Glucose Lactic Acid Lactic Acid F/U @ 2Hr 5.2 H* Lactic Acid F/U @ 4Hr 7.8 H* Calcium Total Bilirubin AST ALT Alkaline Phosphatase B-Natriuretic Peptide Total Protein Albumin Urine Color Urine Appearance Urine pH Ur Specific [place] Urine Protein Urine Glucose (UA) Urine Ketones Urine Blood Urine Nitrite Ur Leukocyte Esterase Urine RBC Urine WBC Ur Squamous Epith Cells Urine Bacteria Hyaline Casts Urine Opiates Screen Ur Barbiturates Screen Ur Phencyclidine Scrn Ur Amphetamines Screen U Benzodiazepines Scrn Urine Cocaine Screen U Marijuana (THC) Screen COVID-19 (DARIEN) COVID-19 Clin Com Influenza Type A (PRATIK) Negative Influenza Type B (PRATIK) Negative Influenza A & B Note See Note 03/31/23 03/31/23 03/31/23 02:30 02:30 02:32 MCV 97.8 MCH 32.3 MCHC 33.0 RDW 13.2 Plt Count 181 MPV 9.6 Immature Gran % (Auto) 0.5 H Neut % (Auto) 89.4 H Lymph % (Auto) 8.3 L [place] % (Auto) 0.5 L Eos % (Auto) 0.7 Baso % (Auto) 0.6 Lymph # (Auto) 0.7 L [place] # (Auto) 0.0 L Eos # (Auto) 0.1 Baso # (Auto) 0.1 Abs Immat Gran (auto) 0.04 H Absolute Neuts (auto) 7.7 Absolute Nucleated RBC 0.000 Nucleated RBC % (auto) 0.0 PT INR APTT VBG pH 7.30 L VBG pCO2 33 VBG pO2 51 VBG HCO3 16 L VBG O2 Saturation 76.0 VBG Base Excess -8.4 Anion Gap 23 H Estim Creat Clear Calc 37.8 Estimated GFR 31 Random Glucose 147 H Lactic Acid Lactic Acid F/U @ 2Hr Lactic Acid F/U @ 4Hr Calcium 9.3 Total Bilirubin AST ALT Alkaline Phosphatase B-Natriuretic Peptide Total Protein Albumin Urine Color Urine Appearance Urine pH Ur Specific [place] Urine Protein Urine Glucose (UA) Urine Ketones Urine Blood Urine Nitrite Ur Leukocyte Esterase Urine RBC Urine WBC Ur Squamous Epith Cells Urine Bacteria Hyaline Casts Urine Opiates Screen Ur Barbiturates Screen Ur Phencyclidine Scrn Ur Amphetamines Screen U Benzodiazepines Scrn Urine Cocaine Screen U Marijuana (THC) Screen COVID-19 (DARIEN) COVID-19 Clin Com Influenza Type A (PRATIK) Influenza Type B (PRATIK) Influenza A & B Note 03/31/23 03/31/23 03/31/23 06:09 07:00 07:02 MCV MCH MCHC RDW Plt Count MPV Immature Gran % (Auto) Neut % (Auto) Lymph % (Auto) [place] % (Auto) Eos % (Auto) Baso % (Auto) Lymph # (Auto) [place] # (Auto) Eos # (Auto) Baso # (Auto) Abs Immat Gran (auto) Absolute Neuts (auto) Absolute Nucleated RBC Nucleated RBC % (auto) PT INR APTT VBG pH 7.32 VBG pCO2 37 VBG pO2 53 VBG HCO3 19 L VBG O2 Saturation 79.0 VBG Base Excess -6.1 Anion Gap Estim Creat Clear Calc Estimated GFR Random Glucose Lactic Acid 8.2 H* Lactic Acid F/U @ 2Hr Lactic Acid F/U @ 4Hr Calcium Total Bilirubin AST ALT Alkaline Phosphatase B-Natriuretic Peptide Total Protein Albumin Urine Color Yellow Urine Appearance Clear Urine pH 5.5 Ur Specific [place] >= 1.030 H Urine Protein Trace Urine Glucose (UA) Negative Urine Ketones Trace Urine Blood Moderate (2+) H Urine Nitrite Negative Ur Leukocyte Esterase Negative Urine RBC >20 H Urine WBC 0-5 Ur Squamous Epith Cells 0-2 Urine Bacteria None Seen Hyaline Casts 0-2 Urine Opiates Screen Ur Barbiturates Screen Ur Phencyclidine Scrn Ur Amphetamines Screen U Benzodiazepines Scrn Urine Cocaine Screen U Marijuana (THC) Screen COVID-19 (DARIEN) COVID-19 Clin Com Influenza Type A (PRATIK) Influenza Type B (PRATIK) Influenza A & B Note 03/31/23 03/31/23 03/31/23 08:28 09:13 11:27 MCV MCH MCHC RDW Plt Count MPV Immature Gran % (Auto) Neut % (Auto) Lymph % (Auto) [place] % (Auto) Eos % (Auto) Baso % (Auto) Lymph # (Auto) [place] # (Auto) Eos # (Auto) Baso # (Auto) Abs Immat Gran (auto) Absolute Neuts (auto) Absolute Nucleated RBC Nucleated RBC % (auto) PT INR APTT VBG pH VBG pCO2 VBG pO2 VBG HCO3 VBG O2 Saturation VBG Base Excess Anion Gap Estim Creat Clear Calc Estimated GFR Random Glucose Lactic Acid Lactic Acid F/U @ 2Hr 6.8 H* Lactic Acid F/U @ 4Hr 6.1 H* Calcium Total Bilirubin AST ALT Alkaline Phosphatase B-Natriuretic Peptide Total Protein Albumin Urine Color Urine Appearance Urine pH Ur Specific [place] Urine Protein Urine Glucose (UA) Urine Ketones Urine Blood Urine Nitrite Ur Leukocyte Esterase Urine RBC Urine WBC Ur Squamous Epith Cells Urine Bacteria Hyaline Casts Urine Opiates Screen Not Detected Ur Barbiturates Screen Not Detected Ur Phencyclidine Scrn Not Detected Ur Amphetamines Screen Not Detected U Benzodiazepines Scrn POSITIVE H Urine Cocaine Screen Not Detected U Marijuana (THC) Screen Not Detected COVID-19 (DARIEN) COVID-19 Clin Com Influenza Type A (PRATIK) Influenza Type B (PRATIK) Influenza A & B Note Assessment and Plan (1) Mood disorder: Status: Acute (2) Tobacco use disorder: Status: Acute (3) Acute respiratory distress: Status: Acute (4) HIV (human immunodeficiency virus infection): Status: Acute Plan 67-year-old male with pertinent history of HIV on Biktarvy, mood disorder, tobacco use disorder who presents to the emergency department for evaluation of dyspnea. #.? Acute respiratory distress secondary to acute exacerbation of obstructive lung disease.? CTA chest showed no PE , but showed moderate emphysematous disease, chest x-ray unremarkable KUB showed no acute abnormality or obstruction No official diagnosis of COPD continue IV Solumedrol dose increased to 60 mg Q 8 hours continue DuoNeb updraft q.4 hours while awake, continue azithromycin will add cough medication will wean O2 as tolerated. # Anion Gap metabolic acidosis likely due to lactic acidosis, stable chronic kidney disease stage 3, stable blood sugars , no diarrhea, ABG showed stable CO2, drug toxicology negative will obtain Nephrology consult , repeat BMP # lactic acidosis likely due to updraft treatment , dehydration, trending down, ? also contributed by Biktarvy, will give IV fluids follow labs. #.? HIV.? hold Biktarvy since cause lactic acidosis,check CD4 count #.? Tobacco use disorder.? declined nicotine patch, support provided, gradually weaning, smoke 4 cigarettes a day. #.? Mood disorder.? Continue home mood stabilizers #.? Chronic kidney disease stage 3.? Creatinine at baseline, follow bmp. DVT prophylaxis: Lovenox Full code patient need continued inpatient hospitalization for acute respiratory failure due to COPD exacerbation requiring IV steroids IV antibiotics and need expert consultation. Time Spent With Patient Time: Total time managing care of this patient today ____ minutes. Quality Stroke Does the patient have a stroke diagnosis?: No VTE Prior VTE?: No VTE Risk Level:: Medical - moderate - high VTE Device Contraindication: Treatment Not Indicated VTE Drug Contraindication: N/A - Med Ordered
[2023-03-31 15:28] LABS: Anion Gap 17 (12-20); Blood Urea Nitrogen 27 mg/dL (9-16); Calcium 9.3 mg/dL (8.4-10.2); Carbon Dioxide 22 mmol/L (22-29); Chloride 106 mmol/L (96-108); Estimated Glomerular Filt Rate 37; Glucose Random 140 mg/dL (60-115); Potassium 4.1 mmol/L (3.3-5.1); Sodium 141 mmol/L (135-145)
[2023-03-31 16:47] LABS: Anion Gap 16 (12-20); Carbon Dioxide 24 mmol/L (22-29); Chloride 105 mmol/L (96-108); Potassium 4.1 mmol/L (3.3-5.1); Sodium 141 mmol/L (135-145)
[2023-03-31 17:31] LABS: Lactic Acid 3.7 mmol/L (0.5-2.0)
[2023-03-31 17:36] LABS: Salicylate < 5.0 mg/dL (15-30)
[2023-03-31 18:02] LABS: Reflex Lactate? Lactic Acid Added
[2023-03-31 19:06] LABS: ~Lactic Acid-LAB USE ONLY 3.3 mmol/L (0.5-2.0)
[2023-03-31 20:49] LABS: Reflex Lactate? 2 Y
[2023-03-31 22:09] LABS: ~Lactic Acid-LAB USE ONLY 4.7 mmol/L (0.5-2.0)
[2023-04-01] VITALS (7 sets, daily range): BP systolic 131–161; BP diastolic 75–92; PULSE 94–101; RESP 16–20; TEMP 36.1–36.4; O2SAT 93–94
--- NOTE | 2023-04-01 02:13 | CONS_ITS ---
DATE OF SERVICE: REASON FOR CONSULTATION: I was asked to see the patient to assist in evaluation and management of patient's chronic kidney disease and unexplained lactic acidosis. HISTORY OF PRESENT ILLNESS: In summary, the patient is a 67-year-old gentleman with a history of HIV disease, on Biktarvy therapy, which sounds like is a new HIV therapy that was started recently. The patient is a poor historian. Tells me that he is getting his care in [place], but now he is relocated to this area, but for the past 2 years he has been getting all his care through [place]. The patient presented in the emergency room with shortness of breath and having increasing dyspnea on exertion when he ambulates. Records indicate his baseline creatinine back in January was 2.3 on admission, now it was 2.0, so assuming this is his baseline. He was noted to have a serum bicarb of 24 initially and went down to 16, but more impressive was his lactate level was 5.2 originally and went up to as high as 8.2. The patient had no episodes of hypotension and this appeared to be most likely a type B lactic acidosis or from severe asthma exacerbation, occasionally can get an elevated lactate level. Presently, he is breathing fairly comfortably. He feels better than when he came to the hospital. PAST MEDICAL HISTORY: As mentioned is somewhat limited and only shows HIV disease and mood disorder and smoking. Again, patient is a poor historian. It is unclear what medications he is taking other than him stating that he was recently placed on Biktarvy. It is unclear how long ago he was started on this. ALLERGIES: HE HAS NO KNOWN DRUG ALLERGIES. SOCIAL HISTORY: He is a smoker but denies alcohol or illicit drug use. When directly asked, he says he does not take aspirin. The patient denies a history of kidney stones, gross hematuria or dysuria. He is unclear about whether he has been told he has kidney problems in the past. He references doctors in [place], but does not state that he has seen a kidney doctor before. MEDICATIONS: His current medications are noted in the MAR. PHYSICAL EXAMINATION: VITAL SIGNS: Blood pressure 140/80, and again no hypotensive episodes. He is on 2 L of oxygen. HEENT: Head is atraumatic and normocephalic. NECK: Supple. Mucous membranes are moist. LUNGS: Breath sounds bilaterally. CARDIAC: Regular rate and rhythm. He does have some wheezes, scattered. ABDOMEN: Soft, nontender. EXTREMITIES: Show no edema. LABORATORY DATA: From 2:30 a.m. on the ; sodium 142, potassium 4.4, chloride 107, bicarb 16, anion gap 23, BUN 21, creatinine 2.1. Lactate level was 8.2 at 7 a.m., then 6.8 at 9 a.m., and 6.1 at 11. It was 5.2 at 11 o'clock on the , which was the first lactate done. His LFTs are not abnormal. His serum albumin is 4.6. He had a venous blood gas done, which showed pH of 7.32 and pCO2 of 37. He had a CTA of the chest, no evidence of PE and there is mention made of moderate emphysema. IMPRESSION: 67-year-old human immunodeficiency virus patient admitted to the hospital with respiratory decompensation, felt to be due to chronic obstructive pulmonary disease versus asthma and noted to have chronic kidney disease and elevated lactate level, which may reflect a recent start of a new HIV medication. 1. Stage 3 chronic kidney disease. We need to pursue this further with ultrasound of the kidneys along with further urine studies and serologies. We have his creatinine back in January with a creatinine around 2, suggesting this is his baseline. We will try to get records from [place] as well. 2. Unexplained lactic acidosis. I have ordered a stat salicylate level. Clinically, he appears to have type B lactic acidosis and I am concerned about his HIV medications, which can be associated with mitochondrial dysfunction and type B lactic acidosis. The good news is that he clinically looks quite stable and we will simply follow his lactic level. If the lactate level continues to be elevated despite coming off the HIV medications and there is no other clear explanation, then I would go looking for an occult cancer. There have been reports of patients with occult cancers that have type B lactic acidosis. Alternatively, there are reports of people with COPD and asthma exacerbations the latter particular that can have elevated lactate level due to the work of breathing. RECOMMENDATIONS: 1. At this time include check a salicylate level stat. Repeat his Chem-7 and a lactate level. Hold off on restarting his HIV medication. Get records from [place]. 2. We will continue to follow the patient closely with the team as we sort out the cause of lactic acidosis and his CKD. MD TAMAR Pelayo/SAVANAH DC: 03/31/2023 15:34:16 / [id number]
[2023-04-01] MEDS: Levothyroxine Sodium 50 MCG TABLET PO (05:45)
[2023-04-01 07:24] LABS: Anion Gap 13 (12-20); Blood Urea Nitrogen 28 mg/dL (9-16); Calcium 9.4 mg/dL (8.4-10.2); Carbon Dioxide 27 mmol/L (22-29); Chloride 107 mmol/L (96-108); Estimated Glomerular Filt Rate 37; Glucose Random 132 mg/dL (60-115); Potassium 4.3 mmol/L (3.3-5.1); Sodium 143 mmol/L (135-145)
[2023-04-01] MEDS: Albuterol/Iprat 2.5/0.5MG 3 ML AMPUL.NEB INHALE ×3 (08:34→20:05)
[2023-04-01] MEDS: Rivaroxaban 15 MG TABLET PO (08:39)
[2023-04-01] MEDS: buPROPion HCl XL 300 MG TAB.ER.24H PO (08:39)
[2023-04-01] MEDS: Lactated Ringers 1,000 ML 100 ML IVCONT (08:39)
[2023-04-01] MEDS: guaiFENesin DM 200/20/10 ML 10 ML SYRUP PO ×4 (08:39→20:19)
[2023-04-01] MEDS: Atorvastatin Calcium 40 MG TABLET PO (08:39)
[2023-04-01] MEDS: QUEtiapine Fumarate 200 MG TABLET PO ×2 (08:39→20:19)
[2023-04-01] MEDS: Escitalopram Oxalate 20 MG TABLET PO (08:39)
[2023-04-01] MEDS: methylPREDNISolone Sod Succ 40 MG/ML VIAL 60 MG IVPUSH ×2 (08:39→14:15)
[2023-04-01] MEDS: Acetaminophen 325 MG TABLET 650 MG PO (08:48)
[2023-04-01] MEDS: clonazePAM 1 MG TABLET PO (08:48)
--- NOTE | 2023-04-01 09:46 | P.PNNP_ITS ---
Subjective Subjective Date of Service: 04/01/23 Interval history: Events noted Physical Exam 2 Vital Signs: Vital Signs: Last Vital Signs Temp 97.4 F 04/01/23 07:44 Pulse 94 04/01/23 08:46 Resp 16 04/01/23 08:46 BP 155/92 H 04/01/23 07:44 Pulse Ox 94 04/01/23 07:44 O2 Del Method Nasal Cannula 04/01/23 07:44 O2 Flow Rate 2 04/01/23 07:44 BMI result Body Mass Index 30.9 Comfortable Neck is supple Lung: Air entry equal Heart: S1,S2, normal. No rub Abd: Soft. BS + NS : Alert.No asterexis Ext: No edema Objective Data Labs 03/31/23 02:30 04/01/23 06:04 Labs: Laboratory Results - last 24 hr 03/31/23 03/31/23 03/31/23 11:27 14:48 15:54 Sodium 141 Potassium 4.1 Chloride 106 Carbon Dioxide 22 Anion Gap 17 BUN 27 H Creatinine 1.84 H Estim Creat Clear Calc 44.0 Estimated GFR 37 Random Glucose 140 H Lactic Acid Lactic Acid F/U @ 2Hr Lactic Acid F/U @ 4Hr 6.1 H* Calcium 9.3 Salicylates < 5.0 L 03/31/23 03/31/23 03/31/23 15:54 15:54 18:40 Sodium 141 Potassium 4.1 Chloride 105 Carbon Dioxide 24 Anion Gap 16 BUN Creatinine Estim Creat Clear Calc Estimated GFR Random Glucose Lactic Acid 3.7 H* Lactic Acid F/U @ 2Hr 3.3 H* Lactic Acid F/U @ 4Hr Calcium Salicylates 03/31/23 04/01/23 21:08 06:04 Sodium 143 Potassium 4.3 Chloride 107 Carbon Dioxide 27 Anion Gap 13 BUN 28 H Creatinine 1.86 H Estim Creat Clear Calc 45.0 Estimated GFR 37 Random Glucose 132 H Lactic Acid Lactic Acid F/U @ 2Hr Lactic Acid F/U @ 4Hr 4.7 H* Calcium 9.4 Salicylates Microbiology Microbiology Results: Microbiology 03/30/23 19:51 Blood - Venous Blood Culture - Preliminary No growth after 24 hours. 03/30/23 19:51 Blood - Venous Blood Culture - Preliminary No growth after 24 hours. Procedures Date of Service Date of Service: 04/01/23 Assessment & Plan Assessment and plan (1) HIV (human immunodeficiency virus infection): Status: Acute (2) Lactic acidosis: Status: Acute (3) CKD (chronic kidney disease) stage 3, GFR 30-59 ml/min: Status: Acute Plan Lactic acidosis most likely due to Biktarvy. Currently off Biktarvy. Lactic acid is trending down. Erickson superimposed on CKD. Creatinine is improved. Baseline is unknown. He does have some hematuria. We will check repeat urinalysis along with a urine for protein and creatinine ratio.(ordered) Time Spent With Patient Time: Total time managing care of this patient today ____ minutes. Progress Note: Quality Stroke Does the patient have a stroke diagnosis?: No
[2023-04-01 11:28] LABS: Absolute CD3 Count 447 cells/uL (840-3060); Absolute CD4 Count 272 cells/uL (490-1740); Absolute CD8 Count 179 cells/uL (180-1170); Absolute Lymphocytes 1058 cells/uL (850-3900); CD4 CD8 Ratio 1.52 (0.86-5.00); Percent CD3 Cells 42 % (57-85); Percent CD4 Cells 26 % (30-61); Percent CD8 Cells 17 % (12-42)
--- NOTE | 2023-04-01 12:45 | HO.PM.IMPN ---
Subjective Subjective Date of Service: 04/01/23 Interval History: feeling better this morning slept well still complaining of shortness of breath not on home oxygen, denies fever, no chills, no other acute issues overnight, no nausea, no vomiting, no abdominal pain, no diarrhea. Review of Systems all other system reviewed and negative Physical Exam Vital Signs: Vital Signs: Last Vital Signs Temp 97.4 F 04/01/23 07:44 Pulse 94 04/01/23 08:46 Resp 16 04/01/23 08:46 BP 155/92 H 04/01/23 07:44 Pulse Ox 94 04/01/23 07:44 O2 Del Method Nasal Cannula 04/01/23 07:44 O2 Flow Rate 2 04/01/23 07:44 BMI result Body Mass Index 30.9 Const: Other: General? awake a lert x3 resting co mfortably in no ac janet distress.? Nec k? supple no JVD. CVS? regular rate rhythm, Respirator y lungs? bilateral expiratory wheeze no use of accesso ry muscles, no ral es. Gastrointestin al abdomen soft, n on tender, bowel s ounds audible,? no guarding , no rig idity. Extremities no? edema. Neuro nonfocal? moving a ll 4 extremity spe ech clear. Skin no rash psych approp riate affect Objective Data Active Medications Acetaminophen (Acetaminophen 325 Mg Tablet) 650 mg PO Q6H PRN PRN Reason: Pain, Mild (Pain Scale 1-3) Last Admin: 04/01/23 08:48 Dose: 650 mg Documented By: FISH Albuterol/Ipratropium (Albuterol/Iprat 2.5/0.5mg 3 Ml Ampul.Neb) 3 ml INHALE RQ4H WHILE AWAKE [facility] Last Admin: 04/01/23 11:57 Dose: Not Given Documented By: ZEUS Non-Admin Reason: Patient Asleep Albuterol/Ipratropium (Albuterol/Iprat 2.5/0.5mg 3 Ml Ampul.Neb) 3 ml INHALE Q4H PRN PRN Reason: Wheezing Last Admin: 03/31/23 23:52 Dose: 3 ml Documented By: MARY JO Atorvastatin Calcium (Atorvastatin Calcium 40 Mg Tablet) 40 mg PO DAILY [facility] Last Admin: 04/01/23 08:39 Dose: 40 mg Documented By: FISH Bupropion HCl (Bupropion Hcl Xl 300 Mg Tab.Er.24h) 300 mg PO DAILY [facility] Last Admin: 04/01/23 08:39 Dose: 300 mg Documented By: FISH Clonazepam (Clonazepam 1 Mg Tablet) 1 mg PO BID PRN PRN Reason: Anxiety Last Admin: 04/01/23 08:48 Dose: 1 mg Documented By: FISH Escitalopram Oxalate (Escitalopram Oxalate 20 Mg Tablet) 20 mg PO DAILY [facility] Last Admin: 04/01/23 08:39 Dose: 20 mg Documented By: FISH Guaifenesin/Dextromethorphan (Guaifenesin Dm 200/20/10 Ml 10 Ml Syrup) 10 ml PO QID [facility] Last Admin: 04/01/23 12:26 Dose: 10 ml Documented By: FISH Azithromycin 500 mg/ Sodium (Chloride) 250 mls @ 125 mls/hr IV 2200 [facility] Last Infusion: 03/31/23 23:40 Dose: 0 mls/hr Documented By: MOISES Levothyroxine Sodium (Levothyroxine Sodium 50 Mcg Tablet) 50 mcg PO DAILY@0630 [facility] Last Admin: 04/01/23 05:45 Dose: 50 mcg Documented By: MOISES Melatonin (Melatonin 3 Mg Tablet) 6 mg PO BEDTIME PRN PRN Reason: Insomnia Methylprednisolone Sodium Succinate (Methylprednisolone Sod Succ 40 Mg/Ml Vial) 60 mg IVPUSH Q8H [facility] Last Admin: 04/01/23 08:39 Dose: 60 mg Documented By: FISH Ondansetron HCl (Ondansetron Hcl 4 Mg/2 Ml Vial) 4 mg IVPUSH Q8H PRN PRN Reason: Nausea and Vomiting Pharmacy Consult (Consult Rx Perform Med Rec) 1 each MISCELLANE ONCE PRN PRN Reason: Consult order Quetiapine Fumarate (Quetiapine Fumarate 200 Mg Tablet) 200 mg PO BID [facility] Last Admin: 04/01/23 08:39 Dose: 200 mg Documented By: FISH Rivaroxaban (Rivaroxaban 15 Mg Tablet) 15 mg PO DAILY [facility] Last Admin: 04/01/23 08:39 Dose: 15 mg Documented By: FISH Sodium Chloride (0.9 % Sodium Chloride Flush 3 Ml Syringe) 3 ml IVFLUSH QSHIFT [facility] Last Admin: 04/01/23 08:40 Dose: Not Given Documented By: FISH Non-Admin Reason: IV Running Labs 03/31/23 02:30 04/01/23 06:04 Labs: Laboratory Results - last 24 hr 03/31/23 03/31/23 03/31/23 12:47 14:48 15:54 Anion Gap 17 Estim Creat Clear Calc 44.0 Estimated GFR 37 Random Glucose 140 H Lactic Acid Lactic Acid F/U @ 2Hr Lactic Acid F/U @ 4Hr Calcium 9.3 Salicylates < 5.0 L Total Lymphocytes 1058 % CD3 Cells 42 L Absolute CD3 Count 447 L % CD4 Cells 26 L Absolute CD4 Count 272 L CD4/CD8 Ratio 1.52 % CD8 Cells 17 Absolute CD8 Count 179 L 03/31/23 03/31/23 03/31/23 15:54 15:54 18:40 Anion Gap 16 Estim Creat Clear Calc Estimated GFR Random Glucose Lactic Acid 3.7 H* Lactic Acid F/U @ 2Hr 3.3 H* Lactic Acid F/U @ 4Hr Calcium Salicylates Total Lymphocytes % CD3 Cells Absolute CD3 Count % CD4 Cells Absolute CD4 Count CD4/CD8 Ratio % CD8 Cells Absolute CD8 Count 03/31/23 04/01/23 21:08 06:04 Anion Gap 13 Estim Creat Clear Calc 45.0 Estimated GFR 37 Random Glucose 132 H Lactic Acid Lactic Acid F/U @ 2Hr Lactic Acid F/U @ 4Hr 4.7 H* Calcium 9.4 Salicylates Total Lymphocytes % CD3 Cells Absolute CD3 Count % CD4 Cells Absolute CD4 Count CD4/CD8 Ratio % CD8 Cells Absolute CD8 Count Microbiology Microbiology Results: Microbiology 03/30/23 19:51 Blood Culture - Preliminary Blood - Venous No growth after 24 hours. 03/30/23 19:51 Blood Culture - Preliminary Blood - Venous No growth after 24 hours. Assessment and Plan (1) CKD (chronic kidney disease) stage 3, GFR 30-59 ml/min: Status: Acute (2) Lactic acidosis: Status: Acute (3) Tobacco use disorder: Status: Acute (4) HIV (human immunodeficiency virus infection): Status: Acute (5) Acute respiratory failure with hypoxia: Status: Acute Plan 67-year-old male with pertinent history of HIV on Biktarvy, mood disorder, tobacco use disorder who presents to the emergency department for evaluation of dyspnea. #.? Acute hypoxic respiratory failure secondary to acute exacerbation of obstructive lung disease.? CTA chest showed no PE , but showed moderate emphysematous disease, chest x-ray unremarkable KUB showed no acute abnormality or obstruction ? ? ? No official diagnosis of COPD ? ? ? continue IV Solumedrol dose decreased dose to 60 b.i.d., continue DuoNeb updraft q.4 hours while awake, continue azithromycin and cough medication ? ? ? will wean O2 as tolerated. # ? Anion Gap? metabolic acidosis likely due to lactic acidosis, stable chronic kidney disease stage 3, stable blood sugars , no diarrhea, ABG showed stable CO2, drug toxicology negative gap closed bicarb normalized. # ? lactic acidosis likely due Biktarvy as per Nephrology, question exacerbated by updraft treatment and dehydration, lactic acidosis improved DC IV fluid. #.? HIV.?? hold Biktarvy since cause lactic acidosis, CD4 count absolute count is 272 low, CD 8 count 179, recommend follow-up at HIV Clinic #.? Tobacco use disorder.?? declined nicotine patch, gradually weaning, smoke 4 cigarettes a day, counseling done. #.? Mood disorder.? Continue home mood stabilizers #.? Chronic kidney disease stage 3.? Creatinine at baseline, follow bmp. DVT prophylaxis: Lovenox Full code ?patient need continued inpatient hospitalization for acute respiratory failure due to COPD exacerbation requiring IV steroids IV antibiotics and expert consultation. Time Spent With Patient Time: Total time managing care of this patient today ____ minutes. Quality Stroke Does the patient have a stroke diagnosis?: No VTE Prior VTE?: No VTE Risk Level:: Medical - moderate - high VTE Device Contraindication: Treatment Not Indicated VTE Drug Contraindication: N/A - Med Ordered
[2023-04-01 13:12] LABS: Appearance Urine Clear; Color Urine Yellow; Glucose Urine UA Negative (Negative); Leukocyte Esterase Urine Negative (Negative); Nitrite Urine Negative (Negative); Specific Gravity - Urine 1.015 (1.005-1.025); UMIC TRIGGER UA YES; Urine Blood Large (3+) (Negative); Urine Ketones Negative (Negative); Urine Protein Trace mg/dL (Neg-Trace)
[2023-04-01 13:26] LABS: Bacteria Urine None Seen (None Seen); Hyaline Casts Urine 0-2 /LPF (0-2); RBC Urine >20 /HPF (0-2); Squamous Epithelial Cell Urine 0-2 /HPF (0-2); WBC Urine 0-5 /HPF (0-5)
[2023-04-01 13:29] LABS: Creatinine Urine 80.71 mg/dL
[2023-04-01 13:30] LABS: Total Protein Urine Random 11 mg/dL (<12)
[2023-04-01] MEDS: traMADoL HCL 50 MG TABLET 25 MG PO (14:16)
--- NOTE | 2023-04-01 14:34 | P.CDIM_ITS ---
PROVIDER RESPONSE TEXT: To clarify, the appropriate diagnosis supported by the clinical indicators: Acute QUERY TEXT: PHYSICIAN'S DOCUMENTATION REQUEST Date of Query: 04/01/2023 10:06 AM EDT Patient Name: Ryder Miller Admit Date: 03/31/2023 Dear Peyton Pearce, A review of the medical record indicates additional documentation may be needed. Please review below and update the documentation accordingly. Clinical Indicators: PN 03/31 - Anion Gap metabolic acidosis likely due to lactic acidosis. Lactic acidosis likely due to updraft treatment, dehydration trending down? also contributed by Shelly jasso. IV fluids, labs Clarify which of the following accurately represents the acuity of the metabolic acidosis: Possible options might include: Acute Chronic stable condition Other please specify Other (explain)Clinically unable to determine (explain)Thank you, Theresa Tolentino, CCS, CDIS Use of terms such as suspected, likely, concern for, or probable (associated with a specific diagnosi s that is being evaluated, monitored, or treated as if it exists) are acceptable and can be coded in the inpatient se tting, when documented at the time of discharge. Please use your independent medical judgment in providing your response. THIS QUERY IS PART OF THE PERMANENT MEDICAL RECORD
--- NOTE | 2023-04-01 16:11 | MHC.CM.PN ---
PT REPORTS HE RENTS A HOME WITH TWO ROOMMATES HE REPORTS HE IS INDEPENDENT WITH CARE AND HAS NO SERVICES PT REPORTS HAVING THE EQUIPMENT FOR HOME INR CHECKS PT SAYS HE HAS A HCP, NAMING HIS DAUGHTER, AJ HIS AGENT HE REPORTS HIS PCP IS JOSE CHEN IN [facility] PT REPORTS WANTING A PCP CLOSER, BUT SAYS HE WILL RESEARCH THEM. HE IS AWARE CM CAN ATTEMPT TO MAKE AN APPT IF HE IDENTIFIES A PROVIDER IMM DELIVERED DCP: HOME NO SERVICES VIA PRIVATE TRANSPORT
[2023-04-01] MEDS: 0.9 % Sodium Chloride Flush 3 ML SYRINGE IVFLUSH (16:24)
[2023-04-01] MEDS: Azithromycin 500 MG in 0.9 % Sodium Chloride 250 ML 125 MG IV (20:19)
[2023-04-02] VITALS (9 sets, daily range): BP systolic 142–158; BP diastolic 80–89; PULSE 84–95; RESP 16–20; TEMP 35.6–36.2; O2SAT 89–93
[2023-04-02] MEDS: 0.9 % Sodium Chloride Flush 3 ML SYRINGE IVFLUSH ×3 (01:02→16:12)
[2023-04-02] MEDS: methylPREDNISolone Sod Succ 40 MG/ML VIAL 60 MG IVPUSH ×2 (01:03→12:28)
--- NOTE | 2023-04-02 01:41 | PC.NURSE ---
PATIENT NOTED WITH TELE-MONITOR IN USE, CALL PLACED TO BAD CLOTH CHECKER ON IMC UNIT AND RHYTHM IS SR 80-90 S. WILL FOLLOW UP IF NEEDED TO CONTINUE PT IS A MED-SURG ADMISSION IN AM REPORT.
[2023-04-02] MEDS: traMADoL HCL 50 MG TABLET 25 MG PO ×2 (03:23→10:25)
[2023-04-02] MEDS: Levothyroxine Sodium 50 MCG TABLET PO (06:02)
[2023-04-02 07:40] LABS: Fentanyl, urine Not Detected (Not Detect)
[2023-04-02] MEDS: Albuterol/Iprat 2.5/0.5MG 3 ML AMPUL.NEB INHALE ×4 (08:35→20:35)
[2023-04-02] MEDS: Atorvastatin Calcium 40 MG TABLET PO (08:45)
[2023-04-02] MEDS: guaiFENesin DM 200/20/10 ML 10 ML SYRUP PO ×4 (08:45→20:40)
[2023-04-02] MEDS: Rivaroxaban 15 MG TABLET PO (08:45)
[2023-04-02] MEDS: Escitalopram Oxalate 20 MG TABLET PO (08:45)
[2023-04-02] MEDS: QUEtiapine Fumarate 200 MG TABLET PO ×2 (08:45→20:40)
[2023-04-02] MEDS: buPROPion HCl XL 300 MG TAB.ER.24H PO (08:45)
--- NOTE | 2023-04-02 17:17 | P.PNIM_ITS ---
Subjective Subjective Date of Service: 04/02/23 Interval History: feeling better since admission but still complaining of shortness of breath and cough complaining of chest and abdominal pain with coughing, denies fever chills no headache no lightheadedness or dizziness, tolerating diet, no nausea, no vomiting, no abdominal pain. No other acute issues overnight. Review of Systems All other system reviewed and negative. Physical Exam Vital Signs: Vital Signs: Last Vital Signs Temp 97.2 F 04/02/23 15:42 Pulse 86 04/02/23 16:37 Resp 18 04/02/23 16:37 BP 155/84 H 04/02/23 15:42 Pulse Ox 92 04/02/23 16:14 O2 Del Method Nasal Cannula 04/02/23 16:14 O2 Flow Rate 2 04/02/23 16:14 BMI result Body Mass Index 30.9 Const: Other: General? awake alert x3, no respiratory distress, able to communicate in full sentences.? Neck? supple no JVD. CVS? regular rate rhythm, Respiratory lungs? bilateral expiratory wheeze no use of accessory muscles, no rales. Gastrointestinal abdomen soft, non tender, bowel sounds audible,? no guarding , no rigidity. Extremities no? edema. Neuro nonfocal? moving all 4 extremity speech clear. Skin no rash psych appropriate affect Objective Data Active Medications Acetaminophen (Acetaminophen 325 Mg Tablet) 650 mg PO Q6H PRN PRN Reason: Pain, Mild (Pain Scale 1-3) Last Admin: 04/01/23 08:48 Dose: 650 mg Documented By: FISH Albuterol/Ipratropium (Albuterol/Iprat 2.5/0.5mg 3 Ml Ampul.Neb) 3 ml INHALE RQ4H WHILE AWAKE [facility] Last Admin: 04/02/23 16:37 Dose: 3 ml Documented By: NIELS Albuterol/Ipratropium (Albuterol/Iprat 2.5/0.5mg 3 Ml Ampul.Neb) 3 ml INHALE Q4H PRN PRN Reason: Wheezing Last Admin: 03/31/23 23:52 Dose: 3 ml Documented By: MARY JO Atorvastatin Calcium (Atorvastatin Calcium 40 Mg Tablet) 40 mg PO DAILY [facility] Last Admin: 04/02/23 08:45 Dose: 40 mg Documented By: FISH Bupropion HCl (Bupropion Hcl Xl 300 Mg Tab.Er.24h) 300 mg PO DAILY [facility] Last Admin: 04/02/23 08:45 Dose: 300 mg Documented By: FISH Clonazepam (Clonazepam 1 Mg Tablet) 1 mg PO BID PRN PRN Reason: Anxiety Last Admin: 04/01/23 08:48 Dose: 1 mg Documented By: FISH Escitalopram Oxalate (Escitalopram Oxalate 20 Mg Tablet) 20 mg PO DAILY [facility] Last Admin: 04/02/23 08:45 Dose: 20 mg Documented By: FISH Guaifenesin/Dextromethorphan (Guaifenesin Dm 200/20/10 Ml 10 Ml Syrup) 10 ml PO QID [facility] Last Admin: 04/02/23 16:20 Dose: 10 ml Documented By: DIOR Azithromycin 500 mg/ Sodium (Chloride) 250 mls @ 125 mls/hr IV 2200 [facility] Last Infusion: 04/01/23 22:25 Dose: 0 mls/hr Documented By: SVITLANA Levothyroxine Sodium (Levothyroxine Sodium 50 Mcg Tablet) 50 mcg PO DAILY@0630 [facility] Last Admin: 04/02/23 06:02 Dose: 50 mcg Documented By: MALIKA Melatonin (Melatonin 3 Mg Tablet) 6 mg PO BEDTIME PRN PRN Reason: Insomnia Methylprednisolone Sodium Succinate (Methylprednisolone Sod Succ 40 Mg/Ml Vial) 60 mg IVPUSH Q12H [facility] Last Admin: 04/02/23 12:28 Dose: 60 mg Documented By: FISH Ondansetron HCl (Ondansetron Hcl 4 Mg/2 Ml Vial) 4 mg IVPUSH Q8H PRN PRN Reason: Nausea and Vomiting Quetiapine Fumarate (Quetiapine Fumarate 200 Mg Tablet) 200 mg PO BID [facility] Last Admin: 04/02/23 08:45 Dose: 200 mg Documented By: FISH Rivaroxaban (Rivaroxaban 15 Mg Tablet) 15 mg PO DAILY [facility] Last Admin: 04/02/23 08:45 Dose: 15 mg Documented By: FISH Sodium Chloride (0.9 % Sodium Chloride Flush 3 Ml Syringe) 3 ml IVFLUSH QSHIFT [facility] Last Admin: 04/02/23 16:12 Dose: 3 ml Documented By: DIOR Tramadol HCl (Tramadol Hcl 50 Mg Tablet) 25 mg PO Q6H PRN PRN Reason: Pain, Severe (Pain Scale 7-10) Last Admin: 04/02/23 10:25 Dose: 25 mg Documented By: FISH Labs 03/31/23 02:30 04/01/23 06:04 Labs: Laboratory Results - last 24 hr 03/31/23 03/31/23 08:28 12:47 Urine Fentanyl Screen Not Detected Lymphocyte Subset Cmmnt TNP Microbiology Microbiology Results: Microbiology 03/30/23 19:51 Blood Culture - Preliminary Blood - Venous No growth after 48 hours. 03/30/23 19:51 Blood Culture - Preliminary Blood - Venous No growth after 48 hours. Assessment and Plan (1) CKD (chronic kidney disease) stage 3, GFR 30-59 ml/min: Status: Acute (2) Lactic acidosis: Status: Acute (3) Tobacco use disorder: Status: Acute (4) HIV (human immunodeficiency virus infection): Status: Acute (5) Acute respiratory failure with hypoxia: Status: Acute Plan 67-year-old male with pertinent history of HIV on Biktarvy, mood disorder, tobacco use disorder who presents to the emergency department for evaluation of dyspnea. #.? Acute hypoxic respiratory failure secondary to acute exacerbation of obstructive lung disease.? slowly improving with less shortness of breath and cough ? ? ? CTA chest showed no PE , but showed moderate emphysematous disease, chest x-ray unremarkable KUB showed no acute abnormality or obstruction ? ? ? No official diagnosis of COPD ? ? ? continue IV Solumedrol 60 b.i.d., continue DuoNeb updraft q.4 hours while awake, continue azithromycin and cough medication ? ? ? will wean O2 as tolerated. recommend out of bed to chair and incentive spirometry, outpatient pulmonology follow-up for PFTs # ? Anion Gap? metabolic acidosis likely due to lactic acidosis, stable chronic kidney disease stage 3, stable blood sugars , no diarrhea, ABG showed stable CO2, drug toxicology negative gap closed bicarb normalized. # ? lactic acidosis likely due Biktarvy as per Nephrology, question exacerbated by updraft treatment and dehydration, lactic acidosis improved DC IV fluid. #.? HIV.?? hold Biktarvy since cause lactic acidosis, CD4 count absolute count is 272 low, CD 8 count 179, recommend follow-up at HIV Clinic for alternate medication #.? Tobacco use disorder.?? declined nicotine patch, gradually weaning, smoke 4 cigarettes a day, counseling done. #.? Mood disorder.? Continue home mood stabilizers #.? Chronic kidney disease stage 3.? Creatinine at baseline, follow bmp. 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 Time Spent With Patient Time: Total time managing care of this patient today ____ minutes. Quality Stroke Does the patient have a stroke diagnosis?: No VTE Prior VTE?: No VTE Risk Level:: Medical - moderate - high VTE Device Contraindication: Treatment Not Indicated VTE Drug Contraindication: N/A - Med Ordered
[2023-04-02] MEDS: Azithromycin 500 MG in 0.9 % Sodium Chloride 250 ML 125 MG IV (20:40)
[2023-04-03] VITALS (9 sets, daily range): BP systolic 136–152; BP diastolic 68–97; PULSE 86–114; RESP 16–18; TEMP 36–36.6; O2SAT 88–95
[2023-04-03] MEDS: 0.9 % Sodium Chloride Flush 3 ML SYRINGE IVFLUSH ×4 (00:35→20:41)
[2023-04-03] MEDS: methylPREDNISolone Sod Succ 40 MG/ML VIAL 60 MG IVPUSH (00:35)
[2023-04-03] MEDS: Albuterol/Iprat 2.5/0.5MG 3 ML AMPUL.NEB INHALE ×4 (03:27→20:05)
[2023-04-03] MEDS: Levothyroxine Sodium 50 MCG TABLET PO (06:15)
[2023-04-03] MEDS: traMADoL HCL 50 MG TABLET 25 MG PO (09:27)
[2023-04-03] MEDS: Escitalopram Oxalate 20 MG TABLET PO (09:28)
[2023-04-03] MEDS: Atorvastatin Calcium 40 MG TABLET PO (09:28)
[2023-04-03] MEDS: QUEtiapine Fumarate 200 MG TABLET PO ×2 (09:28→20:37)
[2023-04-03] MEDS: buPROPion HCl XL 300 MG TAB.ER.24H PO (09:28)
[2023-04-03] MEDS: Rivaroxaban 15 MG TABLET PO (09:28)
[2023-04-03] MEDS: guaiFENesin DM 200/20/10 ML 10 ML SYRUP PO ×4 (09:28→20:38)
[2023-04-03] MEDS: Albuterol Sulfate 7.5 MG, Albuterol Sulfate (0.083%) 2.5 MG 10 MG INHALE (11:22)
--- NOTE | 2023-04-03 12:32 | P.CONPL_ITS ---
History of Present Illness History of Present Illness Consult date: 04/03/23 Chief complaint: Dyspnea Narrative: This is an inpatient pulmonary consultation.This is a 67-year-old male with pertinent history of HIV on Biktarvy, mood disorder, tobacco use disorder who presents to the emergency department for evaluation of dyspnea.? Patient states it started 3 days prior to presentation.? It has been progressive and worse with ambulation.? Also has been having wheezing and nonproductive cough.? No fevers or chills.? Patient admits to smoking cigarettes but denies ever being diagnosed with COPD or asthma.? Not on home inhalers.? Does not use oxygen at home.? States he is compliant with his HIV medication.? No chest discomfort, palpitations, abdominal pain, changes in urinary or bowel habits. He has been in the hospital since the . He has been slow to recover. Still having sig nificant chest tightness and wheezing. Will go ahead and maximize his respiratory therapy. I did review CT scan of the chest demonstrating emphysema but no evidence of any airspace disease. Will request a chest x-ray at this time to assess for any evidence of any pneumonitis. In regards of his HIV his CD4 count id slightly low. Review of Systems Constitutional: Constitutional: Reports fatigue Cardiovascular: Cardiovascular: Reports dyspnea on exertion Respiratory: Respiratory: Reports cough, Reports dyspnea on exertion and Reports wheezing Endocrine: Endocrine: Reports fatigue Allergic/Immunologic: Allergic/Immunologic: Reports wheezing PMFSH Past Medical History Medical History HIV (human immunodeficiency virus infection) Mood disorder Tobacco use disorder Social History Social History Household Members: Other Household Members Other:: room mates Housing: Homeless Do you presently have visiting nurse or other home services: No Alcohol intake: never Patient Tobacco Use Status: Refuse Tobacco use screen Smoked in Last 30 Days: Yes Use of substances other than those prescribed or required for medical reasons: No Currently Displaying Signs/Symptoms of Drug Intoxication Withdrawal: No Have you been hit, kicked, punched, or otherwise hurt by someone within the past year? If so, by whom?: No Do you feel safe in your current relationship?: No Current Relationship Is there a partner from a previous relationship who is making you feel unsafe now?: No Are you made to feel afraid or neglected: No Holiness Healthcare Practices: Restorationist Advance Directives: No Advance Directives Information Provided: No Advance Directives on File: No Do you have thoughts of harming others: None Do you have a plan to hurt others: No Plan Recently lost weight without trying: Unsure Eating poorly because of decreased appetite: Yes Nutrition Risks: No Nutritional Risk Poor oral hygiene: No service: No Meds Allergies Allergy/AdvReac Type Severity Reaction Status Date / Time No Known Allergies Allergy Verified 03/31/23 03:30 Active Medications: Current Medications Acetaminophen (Acetaminophen 325 Mg Tablet) 650 mg PO Q6H PRN PRN Reason: Pain, Mild (Pain Scale 1-3) Last Admin: 04/01/23 08:48 Dose: 650 mg Albuterol/Ipratropium (Albuterol/Iprat 2.5/0.5mg 3 Ml Ampul.Neb) 3 ml INHALE RQ4H WHILE AWAKE [facility] Last Admin: 04/03/23 11:32 Dose: Not Given Albuterol/Ipratropium (Albuterol/Iprat 2.5/0.5mg 3 Ml Ampul.Neb) 3 ml INHALE Q4H PRN PRN Reason: Wheezing Last Admin: 04/03/23 03:27 Dose: 3 ml Atorvastatin Calcium (Atorvastatin Calcium 40 Mg Tablet) 40 mg PO DAILY [facility] Last Admin: 04/03/23 09:28 Dose: 40 mg Bupropion HCl (Bupropion Hcl Xl 300 Mg Tab.Er.24h) 300 mg PO DAILY [facility] Last Admin: 04/03/23 09:28 Dose: 300 mg Clonazepam (Clonazepam 1 Mg Tablet) 1 mg PO BID PRN PRN Reason: Anxiety Last Admin: 04/01/23 08:48 Dose: 1 mg Escitalopram Oxalate (Escitalopram Oxalate 20 Mg Tablet) 20 mg PO DAILY [facility] Last Admin: 04/03/23 09:28 Dose: 20 mg Guaifenesin/Dextromethorphan (Guaifenesin Dm 200/20/10 Ml 10 Ml Syrup) 10 ml PO QID [facility] Last Admin: 04/03/23 09:28 Dose: 10 ml Azithromycin 500 mg/ Sodium (Chloride) 250 mls @ 125 mls/hr IV 2200 [facility] Last Infusion: 04/02/23 22:45 Dose: Infused Magnesium Sulfate (Magnesium Sulfate/H2o) 2 gm in 50 mls @ 25 mls/hr IV ONCE ONE Stop: 04/03/23 13:11 Levothyroxine Sodium (Levothyroxine Sodium 50 Mcg Tablet) 50 mcg PO DAILY@0630 [facility] Last Admin: 04/03/23 06:15 Dose: 50 mcg Melatonin (Melatonin 3 Mg Tablet) 6 mg PO BEDTIME PRN PRN Reason: Insomnia Methylprednisolone Sodium Succinate (Methylprednisolone Sod Succ 40 Mg/Ml Vial) 80 mg IVPUSH Q6H [facility] Ondansetron HCl (Ondansetron Hcl 4 Mg/2 Ml Vial) 4 mg IVPUSH Q8H PRN PRN Reason: Nausea and Vomiting Quetiapine Fumarate (Quetiapine Fumarate 200 Mg Tablet) 200 mg PO BID [facility] Last Admin: 04/03/23 09:28 Dose: 200 mg Rivaroxaban (Rivaroxaban 15 Mg Tablet) 15 mg PO DAILY [facility] Last Admin: 04/03/23 09:28 Dose: 15 mg Sodium Chloride (0.9 % Sodium Chloride Flush 3 Ml Syringe) 3 ml IVFLUSH QSHIFT [facility] Last Admin: 04/03/23 09:31 Dose: 3 ml Tramadol HCl (Tramadol Hcl 50 Mg Tablet) 25 mg PO Q6H PRN PRN Reason: Pain, Severe (Pain Scale 7-10) Last Admin: 04/03/23 09:27 Dose: 25 mg Home Medications Medication Instructions Recorded Confirmed Last Taken Type atorvastatin 40 mg tablet 40 mg PO DAILY 03/31/23 03/31/23 Unknown History bictegravir 50 mg-emtricitabine 1 tab PO DAILY 03/31/23 03/31/23 Unknown History 200 mg-tenofovir alafenam 25 mg tablet (Biktarvy) bupropion HCl 300 mg 24 hr tablet, 300 mg PO QAM 03/31/23 03/31/23 Unknown History extended release citalopram 40 mg tablet 40 mg PO DAILY 03/31/23 03/31/23 Unknown History clonazepam 1 mg tablet 1 mg PO BID PRN Anxiety 03/31/23 03/31/23 Unknown History famotidine 20 mg tablet 20 mg PO BID 03/31/23 03/31/23 Unknown History ketoconazole 2 % topical cream appl topical DAILY 03/31/23 Unknown History levothyroxine 50 mcg tablet 50 mcg PO QAM 03/31/23 03/31/23 Unknown History quetiapine 400 mg tablet,extended 400 mg PO BEDTIME 03/31/23 03/31/23 Unknown History release 24 hr rivaroxaban 15 mg tablet (Xarelto) 15 mg PO DAILY 03/31/23 03/31/23 Unknown History zolpidem 12.5 mg tablet,extended 12.5 mg PO BEDTIME PRN Insomnia 03/31/23 03/31/23 Unknown History release,multiphase Physical Exam Vital Signs: Vital Signs: Last Vital Signs Temp 96.8 F 04/03/23 07:24 Pulse 91 04/03/23 11:32 Resp 18 04/03/23 11:32 BP 141/97 H 04/03/23 07:24 Pulse Ox 91 L 04/03/23 07:24 O2 Del Method Nasal Cannula 04/03/23 07:24 O2 Flow Rate 2 04/03/23 07:24 BMI result Body Mass Index 30.9 Const: Other: General? awake alert x3, no respiratory distress, able to communicate in full sentences.? Neck? supple no JVD. CVS? regular rate rhythm, Respiratory lungs? bilateral expiratory wheeze, diffuse Gastrointestinal abdomen soft, non tender, bowel sounds audible,? no guarding , no rigidity. Extremities no? edema. Neuro nonfocal? moving all 4 extremity speech clear. Skin no rash psych appropriate affect Results Laboratory Findings 03/31/23 02:30 04/01/23 06:04 ABG, PT/INR, D-dimer: PT/INR, D-dimer PT 13.8 SEC (11.1-13.3) H 03/30/23 19:51 INR 1.1 (0.9-1.1) 03/30/23 19:51 Abnormal lab findings: Abnormal Labs 03/30/23 03/30/23 03/30/23 19:51 19:51 19:51 RBC Hgb Hct MPV 9.2 L Immature Gran % (Auto) Neut % (Auto) Lymph % (Auto) Moca % (Auto) Eos % (Auto) 8.8 H Lymph # (Auto) Moca # (Auto) Eos # (Auto) 0.9 H Abs Immat Gran (auto) 0.04 H PT 13.8 H VBG pH VBG HCO3 Carbon Dioxide Anion Gap BUN 19 H Creatinine 1.97 H Random Glucose Lactic Acid Lactic Acid F/U @ 2Hr Lactic Acid F/U @ 4Hr Total Protein 8.1 H Ur Specific [place] Urine Blood Urine RBC Salicylates U Benzodiazepines Scrn % CD3 Cells Absolute CD3 Count % CD4 Cells Absolute CD4 Count Absolute CD8 Count 03/30/23 03/30/23 03/31/23 19:51 23:36 01:48 RBC Hgb Hct MPV Immature Gran % (Auto) Neut % (Auto) Lymph % (Auto) Moca % (Auto) Eos % (Auto) Lymph # (Auto) Moca # (Auto) Eos # (Auto) Abs Immat Gran (auto) PT VBG pH VBG HCO3 Carbon Dioxide Anion Gap BUN Creatinine Random Glucose Lactic Acid 2.3 H* Lactic Acid F/U @ 2Hr 5.2 H* Lactic Acid F/U @ 4Hr 7.8 H* Total Protein Ur Specific [place] Urine Blood Urine RBC Salicylates U Benzodiazepines Scrn % CD3 Cells Absolute CD3 Count % CD4 Cells Absolute CD4 Count Absolute CD8 Count 03/31/23 03/31/23 03/31/23 02:30 02:30 02:32 RBC 4.18 L Hgb 13.5 L Hct 40.9 L MPV Immature Gran % (Auto) 0.5 H Neut % (Auto) 89.4 H Lymph % (Auto) 8.3 L Moca % (Auto) 0.5 L Eos % (Auto) Lymph # (Auto) 0.7 L Moca # (Auto) 0.0 L Eos # (Auto) Abs Immat Gran (auto) 0.04 H PT VBG pH 7.30 L VBG HCO3 16 L Carbon Dioxide 16 L Anion Gap 23 H BUN 21 H Creatinine 2.14 H Random Glucose 147 H Lactic Acid Lactic Acid F/U @ 2Hr Lactic Acid F/U @ 4Hr Total Protein Ur Specific [place] Urine Blood Urine RBC Salicylates U Benzodiazepines Scrn % CD3 Cells Absolute CD3 Count % CD4 Cells Absolute CD4 Count Absolute CD8 Count 03/31/23 03/31/23 03/31/23 06:09 07:00 07:02 RBC Hgb Hct MPV Immature Gran % (Auto) Neut % (Auto) Lymph % (Auto) Moca % (Auto) Eos % (Auto) Lymph # (Auto) [place]oca # (Auto) Eos # (Auto) Abs Immat Gran (auto) PT VBG pH VBG HCO3 19 L Carbon Dioxide Anion Gap BUN Creatinine Random Glucose Lactic Acid 8.2 H* Lactic Acid F/U @ 2Hr Lactic Acid F/U @ 4Hr Total Protein Ur Specific [place] >= 1.030 H Urine Blood Moderate (2+) H Urine RBC >20 H Salicylates U Benzodiazepines Scrn % CD3 Cells Absolute CD3 Count % CD4 Cells Absolute CD4 Count Absolute CD8 Count 03/31/23 03/31/23 03/31/23 08:28 09:13 11:27 RBC Hgb Hct MPV Immature Gran % (Auto) Neut % (Auto) Lymph % (Auto) Moca % (Auto) Eos % (Auto) Lymph # (Auto) [place] # (Auto) Eos # (Auto) Abs Immat Gran (auto) PT VBG pH VBG HCO3 Carbon Dioxide Anion Gap BUN Creatinine Random Glucose Lactic Acid Lactic Acid F/U @ 2Hr 6.8 H* Lactic Acid F/U @ 4Hr 6.1 H* Total Protein Ur Specific [place] Urine Blood Urine RBC Salicylates U Benzodiazepines Scrn POSITIVE H % CD3 Cells Absolute CD3 Count % CD4 Cells Absolute CD4 Count Absolute CD8 Count 03/31/23 03/31/23 03/31/23 12:47 14:48 15:54 RBC Hgb Hct MPV Immature Gran % (Auto) Neut % (Auto) Lymph % (Auto) Moca % (Auto) Eos % (Auto) Lymph # (Auto) [place] # (Auto) Eos # (Auto) Abs Immat Gran (auto) PT VBG pH VBG HCO3 Carbon Dioxide Anion Gap BUN 27 H Creatinine 1.84 H Random Glucose 140 H Lactic Acid Lactic Acid F/U @ 2Hr Lactic Acid F/U @ 4Hr Total Protein Ur Specific [place] Urine Blood Urine RBC Salicylates < 5.0 L U Benzodiazepines Scrn % CD3 Cells 42 L Absolute CD3 Count 447 L % CD4 Cells 26 L Absolute CD4 Count 272 L Absolute CD8 Count 179 L 03/31/23 03/31/23 03/31/23 15:54 18:40 21:08 RBC Hgb Hct MPV Immature Gran % (Auto) Neut % (Auto) Lymph % (Auto) Moca % (Auto) Eos % (Auto) Lymph # (Auto) [place] # (Auto) Eos # (Auto) Abs Immat Gran (auto) PT VBG pH VBG HCO3 Carbon Dioxide Anion Gap BUN Creatinine Random Glucose Lactic Acid 3.7 H* Lactic Acid F/U @ 2Hr 3.3 H* Lactic Acid F/U @ 4Hr 4.7 H* Total Protein Ur Specific [place] Urine Blood Urine RBC Salicylates U Benzodiazepines Scrn % CD3 Cells Absolute CD3 Count % CD4 Cells Absolute CD4 Count Absolute CD8 Count 04/01/23 04/01/23 06:04 12:37 RBC Hgb Hct MPV Immature Gran % (Auto) Neut % (Auto) Lymph % (Auto) [place] % (Auto) Eos % (Auto) Lymph # (Auto) [place] # (Auto) Eos # (Auto) Abs Immat Gran (auto) PT VBG pH VBG HCO3 Carbon Dioxide Anion Gap BUN 28 H Creatinine 1.86 H Random Glucose 132 H Lactic Acid Lactic Acid F/U @ 2Hr Lactic Acid F/U @ 4Hr Total Protein Ur Specific [place] Urine Blood Large (3+) H Urine RBC >20 H Salicylates U Benzodiazepines Scrn % CD3 Cells Absolute CD3 Count % CD4 Cells Absolute CD4 Count Absolute CD8 Count Microbiology: Microbiology 03/30/23 19:51 Blood - Venous Blood Culture - Preliminary No growth after 48 hours. 03/30/23 19:51 Blood - Venous Blood Culture - Preliminary No growth after 48 hours. Assessment and Plan (1) Acute respiratory failure with hypoxia: Status: Acute (2) Asthma exacerbation: Status: Acute (3) HIV (human immunodeficiency virus infection): Status: Acute Plan Additional respiratory therapy start Magnesium 2gm x 1 Bloodwork CXR increase solumedrol continue oxygen to keep pox>90% respiratory viral panel Time Spent With Patient Time: Total time managing care of this patient today ____ minutes. Procedures Date of Service Date of Service: 04/03/23
[2023-04-03] MEDS: Magnesium Sulfate/H2O 2 GM/50 ML PIGGYBACK IV (12:42)
[2023-04-03] MEDS: methylPREDNISolone Sod Succ 40 MG/ML VIAL 80 MG IVPUSH ×3 (12:42→22:36)
--- NOTE | 2023-04-03 13:32 | HO.PM.IMPN ---
Subjective Subjective Date of Service: 04/03/23 Interval History: acute exacerbation of obstructive lung disease.? Review of Systems still sob with minimum excersion Denies any chest pain or fever or cough or phlegm Physical Exam Vital Signs: Vital Signs: Last Vital Signs Temp 96.8 F 04/03/23 07:24 Pulse 91 04/03/23 11:32 Resp 18 04/03/23 11:32 BP 141/97 H 04/03/23 07:24 Pulse Ox 91 L 04/03/23 07:24 O2 Del Method Nasal Cannula 04/03/23 07:24 O2 Flow Rate 2 04/03/23 07:24 BMI result Body Mass Index 30.9 General?? awake alert x3, somehwat sob CVS? regular rate rhythm, Respiratory lungs? bilateral expiratory wheeze, diffuse Gastrointestinal abdomen soft, non tender, bowel sounds audible,? no guarding or rigidity. Neuro nonfocal ?Extremities no? edema. Skin no rash psych appropriate affect Objective Data Active Medications Acetaminophen (Acetaminophen 325 Mg Tablet) 650 mg PO Q6H PRN PRN Reason: Pain, Mild (Pain Scale 1-3) Last Admin: 04/01/23 08:48 Dose: 650 mg Documented By: FISH Albuterol/Ipratropium (Albuterol/Iprat 2.5/0.5mg 3 Ml Ampul.Neb) 3 ml INHALE RQ4H WHILE AWAKE [facility] Last Admin: 04/03/23 11:32 Dose: Not Given Documented By: AGAPITO Non-Admin Reason: See Note Albuterol/Ipratropium (Albuterol/Iprat 2.5/0.5mg 3 Ml Ampul.Neb) 3 ml INHALE Q4H PRN PRN Reason: Wheezing Last Admin: 04/03/23 03:27 Dose: 3 ml Documented By: AMY Atorvastatin Calcium (Atorvastatin Calcium 40 Mg Tablet) 40 mg PO DAILY [facility] Last Admin: 04/03/23 09:28 Dose: 40 mg Documented By: REJI Bupropion HCl (Bupropion Hcl Xl 300 Mg Tab.Er.24h) 300 mg PO DAILY [facility] Last Admin: 04/03/23 09:28 Dose: 300 mg Documented By: REJI Clonazepam (Clonazepam 1 Mg Tablet) 1 mg PO BID PRN PRN Reason: Anxiety Last Admin: 04/01/23 08:48 Dose: 1 mg Documented By: FISH Escitalopram Oxalate (Escitalopram Oxalate 20 Mg Tablet) 20 mg PO DAILY [facility] Last Admin: 04/03/23 09:28 Dose: 20 mg Documented By: REJI Guaifenesin/Dextromethorphan (Guaifenesin Dm 200/20/10 Ml 10 Ml Syrup) 10 ml PO QID [facility] Last Admin: 04/03/23 12:42 Dose: 10 ml Documented By: FISH Azithromycin 500 mg/ Sodium (Chloride) 250 mls @ 125 mls/hr IV 2200 [facility] Last Infusion: 04/02/23 22:45 Dose: 0 mls/hr Documented By: DIOR Levothyroxine Sodium (Levothyroxine Sodium 50 Mcg Tablet) 50 mcg PO DAILY@0630 [facility] Last Admin: 04/03/23 06:15 Dose: 50 mcg Documented By: MALIKA Melatonin (Melatonin 3 Mg Tablet) 6 mg PO BEDTIME PRN PRN Reason: Insomnia Methylprednisolone Sodium Succinate (Methylprednisolone Sod Succ 40 Mg/Ml Vial) 80 mg IVPUSH Q6H [facility] Last Admin: 04/03/23 12:42 Dose: 80 mg Documented By: FISH Ondansetron HCl (Ondansetron Hcl 4 Mg/2 Ml Vial) 4 mg IVPUSH Q8H PRN PRN Reason: Nausea and Vomiting Quetiapine Fumarate (Quetiapine Fumarate 200 Mg Tablet) 200 mg PO BID [facility] Last Admin: 04/03/23 09:28 Dose: 200 mg Documented By: REJI Rivaroxaban (Rivaroxaban 15 Mg Tablet) 15 mg PO DAILY [facility] Last Admin: 04/03/23 09:28 Dose: 15 mg Documented By: REJI Sodium Chloride (0.9 % Sodium Chloride Flush 3 Ml Syringe) 3 ml IVFLUSH QSHIFT [facility] Last Admin: 04/03/23 09:31 Dose: 3 ml Documented By: REJI Tramadol HCl (Tramadol Hcl 50 Mg Tablet) 25 mg PO Q6H PRN PRN Reason: Pain, Severe (Pain Scale 7-10) Last Admin: 04/03/23 09:27 Dose: 25 mg Documented By: REJI Labs 03/31/23 02:30 04/01/23 06:04 Assessment and Plan (1) Asthma exacerbation: Status: Acute (2) Acute respiratory failure with hypoxia: Status: Acute Plan 67-year-old male with pertinent history of HIV on Biktarvy, mood disorder, tobacco use disorder who presents to the emergency department for evaluation of dyspnea. Acute? hypoxic respiratory failure secondary to acute exacerbation of obstructive lung disease.? slowly improving with less shortness of breath and cough ? ? ? CTA chest showed no PE , but showed moderate emphysematous disease, chest x-ray unremarkable KUB showed no acute abnormality or obstruction ? ? ? sob seems simialr to yesterday added cxr ? ? ? adjusted IV Solumedrol 60 b.i.d., added magnesium 2gmx1,extra 1 hour albuterol rx, continue DuoNeb updraft q.4 hours while awake, continue azithromycin and cough medication,will wean O2 as tolerated. ? ? ? recommend out of bed to chair and incentive spirometry, outpatient pulmonology follow-up for PFTs pulm eval ? Anion Gap? metabolic acidosis likely due to lactic acidosis, stable chronic kidney disease stage 3, stable blood sugars , no diarrhea, ABG showed stable CO2, drug toxicology negative ? ? ? gap closed bicarb normalized. ? lactic acidosis likely due Biktarvy? as per Nephrology,? question exacerbated by updraft treatment and dehydration, lactic acidosis improved DC IV fluid. HIV.?? hold Biktarvy since cause lactic acidosis, CD4 count absolute count is 272 low, CD 8 count 179, recommend follow-up at [facility] for alternate medication Tobacco use disorder.?? declined nicotine patch, gradually weaning, smoke 4 cigarettes a day, counseling done. Mood disorder.? Continue home mood stabilizers ? Chronic kidney disease stage 3.? Creatinine at baseline, follow bmp. ? 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 hypothyroidism continue Synthroid DVT prophylaxis: on Xarelto Full code inpatient ongoing hospitalization need: acute respiratory failure due to COPD exacerbation requiring IV steroids IV antibiotics and expert consultation. Time Spent With Patient Time: Total time managing care of this patient today ____ minutes. Quality Stroke Does the patient have a stroke diagnosis?: No VTE Prior VTE?: No VTE Risk Level:: Medical - moderate - high VTE Device Contraindication: Treatment Not Indicated VTE Drug Contraindication: N/A - Med Ordered
[2023-04-03 13:56] LABS: Erythrocyte Sedimentation Rate 5 MM/HR (0-15)
--- NOTE | 2023-04-03 16:09 | MHC.CM.PN ---
Per MD rounds no discharge today. A Pulmonary consult is pending. Patient may need a Bronch prior to discharge. DP home no services. Patient will transport privately.
[2023-04-03 20:53] LABS: TS Negative Control Passed; TS Panel A 1; TS Panel B 2; TS Positive Control Passed; TSpotTB Negative (Negative)
[2023-04-03] MEDS: Azithromycin 500 MG in 0.9 % Sodium Chloride 250 ML 125 MG IV (22:36)
[2023-04-04] VITALS (8 sets, daily range): BP systolic 130–147; BP diastolic 62–86; PULSE 65–110; RESP 17–20; TEMP 36–36.6; O2SAT 91–95
[2023-04-04] MEDS: Acetaminophen 325 MG TABLET 650 MG PO (05:40)
[2023-04-04] MEDS: methylPREDNISolone Sod Succ 40 MG/ML VIAL 80 MG IVPUSH ×3 (06:01→16:27)
[2023-04-04] MEDS: Levothyroxine Sodium 50 MCG TABLET PO (06:01)
[2023-04-04 07:24] LABS: Glucose, Whole Blood 175 mg/dL (60-115)
[2023-04-04] MEDS: Albuterol/Iprat 2.5/0.5MG 3 ML AMPUL.NEB INHALE ×4 (08:08→19:45)
[2023-04-04] MEDS: Escitalopram Oxalate 20 MG TABLET PO (08:20)
[2023-04-04] MEDS: Atorvastatin Calcium 40 MG TABLET PO (08:20)
[2023-04-04] MEDS: Rivaroxaban 15 MG TABLET PO (08:20)
[2023-04-04] MEDS: QUEtiapine Fumarate 200 MG TABLET PO ×2 (08:20→20:19)
[2023-04-04] MEDS: 0.9 % Sodium Chloride Flush 3 ML SYRINGE IVFLUSH ×3 (08:21→20:19)
[2023-04-04] MEDS: buPROPion HCl XL 300 MG TAB.ER.24H PO (08:21)
[2023-04-04] MEDS: guaiFENesin DM 200/20/10 ML 10 ML SYRUP PO ×4 (08:29→20:19)
--- NOTE | 2023-04-04 09:31 | PM.PNPUL ---
Subjective Subjective Date of Service: 04/04/23 Interval history: The patient was seen on exam. He is starting to feel better today. Slowly recovered. Continues on the oxygen flow mentation. He is on high doses of Solu-Medrol and he did receive a 10 mg albuterol treatment yesterday which seemed to help as well. Still waiting for the blood work to return. His x-ray yesterday was reassuring without any acute disease. Objective Data Labs 03/31/23 02:30 04/01/23 06:04 Labs: Laboratory Results - last 24 hr 04/01/23 04/03/23 04/04/23 06:04 13:01 07:06 ESR 5 POC Glucose 175 H TB Test (T-Spot) Com Negative TB Test Nil Control Passed TB Test Panel A 1 TB Test Panel B 2 TB Test Positive Cntrl Passed Microbiology Microbiology Results: Microbiology 03/30/23 19:51 Blood - Venous Blood Culture - Preliminary No growth after 48 hours. 03/30/23 19:51 Blood - Venous Blood Culture - Preliminary No growth after 48 hours. Review of Systems Constitutional: Reports fatigue Cardiovascular: Reports dyspnea on exertion Respiratory: Reports cough, Reports dyspnea on exertion and Reports wheezing Endocrine: Reports fatigue Allergic/Immunologic: Reports wheezing Physical Exam Vital Signs: Vital Signs: Last Vital Signs Temp 96.8 F 04/04/23 07:35 Pulse 92 04/04/23 08:10 Resp 18 04/04/23 08:10 BP 147/85 H 04/04/23 07:35 Pulse Ox 92 04/04/23 07:35 O2 Del Method Nasal Cannula 04/04/23 07:35 O2 Flow Rate 2 04/04/23 07:35 BMI result Body Mass Index 30.9 Const: Other: General? awake alert x3, no respiratory distress, able to communicate in full sentences.? Neck? supple no JVD. CVS? regular rate rhythm, Respiratory lungs? bilateral expiratory wheeze, better Gastrointestinal abdomen soft, non tender, bowel sounds audible,? no guarding , no rigidity. Extremities no? edema. Neuro nonfocal? moving all 4 extremity speech clear. Skin no rash psych appropriate affect Procedures Date of Service Date of Service: 04/04/23 Assessment and Plan Assessment and plan (1) Asthma exacerbation: Status: Acute (2) Acute respiratory failure with hypoxia: Status: Acute (3) HIV (human immunodeficiency virus infection): Status: Acute Plan continue solumedrol, hopefullt de-escalate tomorrow Respiratory therapy titrate oxygen to keep pox>90% Will need to f/u with ID re: HIV treatment Time Spent With Patient Time: Total time managing care of this patient today ____ minutes. Progress Note: Quality Stroke Does the patient have a stroke diagnosis?: No
--- NOTE | 2023-04-04 09:39 | P.PNIM_ITS ---
Subjective Subjective Date of Service: 04/05/23 Interval History: acute exacerbation of obstructive lung disease.? Review of Systems slightly improving but sob with minimum excersion Denies any chest pain or fever or cough or phlegm Physical Exam Vital Signs: Vital Signs: Last Vital Signs Temp 96.8 F 04/04/23 07:35 Pulse 92 04/04/23 08:10 Resp 18 04/04/23 08:10 BP 147/85 H 04/04/23 07:35 Pulse Ox 92 04/04/23 07:35 O2 Del Method Nasal Cannula 04/04/23 07:35 O2 Flow Rate 2 04/04/23 07:35 BMI result Body Mass Index 30.9 General?? awake alert x3, somehwat sob CVS? regular rate rhythm, Respiratory lungs? bilateral expiratory wheeze, diffuse Gastrointestinal abdomen soft, non tender, bowel sounds audible,? no guarding or rigidity. Neuro nonfocal ?Extremities no? edema. Skin no rash psych appropriate affect Objective Data Active Medications Acetaminophen (Acetaminophen 325 Mg Tablet) 650 mg PO Q6H PRN PRN Reason: Pain, Mild (Pain Scale 1-3) Last Admin: 04/04/23 05:40 Dose: 650 mg Documented By: BELLO Albuterol/Ipratropium (Albuterol/Iprat 2.5/0.5mg 3 Ml Ampul.Neb) 3 ml INHALE RQ4H WHILE AWAKE COUNT INCLUDES THE [facility] Last Admin: 04/04/23 08:08 Dose: 3 ml Documented By: AGAPITO Albuterol/Ipratropium (Albuterol/Iprat 2.5/0.5mg 3 Ml Ampul.Neb) 3 ml INHALE Q4H PRN PRN Reason: Wheezing Last Admin: 04/03/23 03:27 Dose: 3 ml Documented By: AMY Albuterol/Ipratropium (Albuterol/Iprat 2.5/0.5mg 3 Ml Ampul.Neb) 3 ml INHALE ONCE ONE Stop: 04/04/23 09:39 Atorvastatin Calcium (Atorvastatin Calcium 40 Mg Tablet) 40 mg PO DAILY COUNT INCLUDES THE [facility] Last Admin: 04/04/23 08:20 Dose: 40 mg Documented By: GALDINO Bupropion HCl (Bupropion Hcl Xl 300 Mg Tab.Er.24h) 300 mg PO DAILY COUNT INCLUDES [facility] Last Admin: 04/04/23 08:21 Dose: 300 mg Documented By: GALDINO Clonazepam (Clonazepam 1 Mg Tablet) 1 mg PO BID PRN PRN Reason: Anxiety Last Admin: 04/01/23 08:48 Dose: 1 mg Documented By: FISH Escitalopram Oxalate (Escitalopram Oxalate 20 Mg Tablet) 20 mg PO DAILY COUNT INCLUDES [facility] Last Admin: 04/04/23 08:20 Dose: 20 mg Documented By: GALDINO Guaifenesin/Dextromethorphan (Guaifenesin Dm 200/20/10 Ml 10 Ml Syrup) 10 ml PO QID COUNT INCLUDES THE [facility] Last Admin: 04/04/23 08:29 Dose: 10 ml Documented By: GALDINO Azithromycin 500 mg/ Sodium (Chloride) 250 mls @ 125 mls/hr IV 2200 COUNT INCLUDES [facility] Last Infusion: 04/04/23 00:55 Dose: 0 mls/hr Documented By: BELLO Magnesium Sulfate/Dextrose (Magnesium Sulfate/D5w) 1 gm in 100 mls @ 100 mls/hr IV ONCE ONE Stop: 04/04/23 10:38 Levothyroxine Sodium (Levothyroxine Sodium 50 Mcg Tablet) 50 mcg PO DAILY@0630 COUNT INCLUDES [facility] Last Admin: 04/04/23 06:01 Dose: 50 mcg Documented By: BELLO Melatonin (Melatonin 3 Mg Tablet) 6 mg PO BEDTIME PRN PRN Reason: Insomnia Methylprednisolone Sodium Succinate (Methylprednisolone Sod Succ 40 Mg/Ml Vial) 80 mg IVPUSH Q6H COUNT INCLUDES THE [facility] Last Admin: 04/04/23 06:01 Dose: 80 mg Documented By: BELLO Ondansetron HCl (Ondansetron Hcl 4 Mg/2 Ml Vial) 4 mg IVPUSH Q8H PRN PRN Reason: Nausea and Vomiting Quetiapine Fumarate (Quetiapine Fumarate 200 Mg Tablet) 200 mg PO BID COUNT INCLUDES THE [facility] Last Admin: 04/04/23 08:20 Dose: 200 mg Documented By: GALDINO Rivaroxaban (Rivaroxaban 15 Mg Tablet) 15 mg PO DAILY COUNT INCLUDES THE [facility] Last Admin: 04/04/23 08:20 Dose: 15 mg Documented By: GALDINO Sodium Chloride (0.9 % Sodium Chloride Flush 3 Ml Syringe) 3 ml IVFLUSH QSHIFT COUNT INCLUDES THE [facility] Last Admin: 04/04/23 08:21 Dose: 3 ml Documented By: GALDINO Tramadol HCl (Tramadol Hcl 50 Mg Tablet) 25 mg PO Q6H PRN PRN Reason: Pain, Severe (Pain Scale 7-10) Last Admin: 04/03/23 09:27 Dose: 25 mg Documented By: REJI Labs 03/31/23 02:30 04/01/23 06:04 Labs: Laboratory Results - last 24 hr 04/01/23 04/03/23 04/04/23 06:04 13:01 07:06 ESR 5 POC Glucose 175 H TB Test (T-Spot) Com Negative TB Test Nil Control Passed TB Test Panel A 1 TB Test Panel B 2 TB Test Positive Cntrl Passed Assessment and Plan (1) Asthma exacerbation: Status: Acute (2) Acute respiratory failure with hypoxia: Status: Acute Plan 67-year-old male with pertinent history of HIV on Biktarvy, mood disorder, tobacco use disorder who presents to the emergency department for evaluation of dyspnea. Acute? hypoxic respiratory failure secondary to acute exacerbation of obstruct [place] lung disease.? slowly improving with less shortness of breath and cough ? ? ? CTA chest showed no PE , but showed moderate emphysematous disease, chest x-ray unremarkable KUB showed no acute abnormality or obstruction ? ? ? sob seems simialr to yesterday added cxr ? ? ? continue IV Solumedrol 60 b.i.d., added magnesium 2gmx1,extra duoneb rx, continue DuoNeb updraft q.4 hours while awake, continue azithromycin and cough medication,will wean O2 as tolerated. ? ? ? recommend out of bed to chair and incentive spirometry, outpatient pulmonology follow-up for PFTs pulm eval ? Anion Gap? metabolic acidosis likely due to lactic acidosis, stable chronic kidney disease stage 3, stable blood sugars , no diarrhea, ABG showed stable CO2, drug toxicology negative ? ? ? gap closed bicarb normalized. ? lactic acidosis likely due Biktarvy? as per Nephrology,? question exacerbated by updraft treatment and dehydration, lactic acidosis improved DC IV fluid. HIV.?? hold Biktarvy since cause lactic acidosis, CD4 count absolute count is 272 low, CD 8 count 179, recommend follow-up at [facility] Clinic for alternate medication Tobacco use disorder.?? declined nicotine patch, gradually weaning, smoke 4 cigarettes a day, counseling done. Mood disorder.? Continue home mood stabilizers ? Chronic kidney disease stage 3.? Creatinine at baseline, follow bmp. ? 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 hypothyroidism continue Synthroid DVT prophylaxis: on Xarelto Full code inpatient ongoing hospitalization need: acute respiratory failure due to COPD exacerbation requiring IV steroids IV antibiotics and expert consultation. Time Spent With Patient Time: Total time managing care of this patient today ____ minutes. Quality Stroke Does the patient have a stroke diagnosis?: No VTE Prior VTE?: No VTE Risk Level:: Medical - moderate - high VTE Device Contraindication: Treatment Not Indicated VTE Drug Contraindication: N/A - Med Ordered
[2023-04-04] MEDS: Magnesium Sulfate/D5W 1 GM/100 ML PIGGYBACK IV (09:52)
[2023-04-04 15:38] LABS: Complement C3 129 mg/dL (82-185)
[2023-04-04 16:52] LABS: MANUAL DIFF FLAG NO
[2023-04-04 16:56] LABS: Basophils Percent Auto 0.1 % (0-2); Hemoglobin 12.7 g/dl (14.0-18.0); Imm Gran Abs Auto 0.34 X10*3/uL (0.00-0.03); Imm Gran Pct Auto 2.9 % (0.0-0.4); Lymphocytes Absolute Auto 0.8 X10*3/uL (1.2-4.9); Lymphocytes Percent Auto 6.6 % (20-40); Mean Corpuscular HGB Conc 34.3 g/dl (31.0-36.0); Mean Corpuscular Hemoglobin 32.8 pg (27.0-33.0); Mean Corpuscular Volume 95.6 fL (80.0-98.0); Mean Platelet Volume 9.5 fL (9.4-12.4); Monocytes Absolute Auto 0.5 X10*3/uL (0.1-1.2); Neutrophils Absolute Auto 10.2 x10*3/uL (2.0-8.3); Neutrophils Percent Auto 86.4 % (45-73); Platelet Count 152 X10*3/uL (160-400); Red Blood Count 3.87 X10*6/uL (4.60-5.80); Red Cell Distribution Width 13.5 % (11.0-16.0); White Blood Count 11.8 X10*3/uL (4.8-10.8)
[2023-04-04 16:57] LABS: Venous Blood Gas Refer to POC result
[2023-04-04 16:57] LABS: VBG Base Excess 4.9 mmol/L; VBG HCO3 26 mmol/L (22-26); VBG pCO2 30 mmHg; VBG pH 7.55 (7.32-7.43); VBG pO2 97 mmHg
[2023-04-04 17:13] LABS: Alanine Aminotransferase 30 U/L (0-40); Albumin Level 3.7 g/dL (3.5-5.0); Alkaline Phosphatase 58 U/L (39-117); Anion Gap 12 (12-20); Aspartate Amino Transferase 29 U/L (5-37); Bilirubin Total 0.6 mg/dL (0.0-1.0); Blood Urea Nitrogen 27 mg/dL (9-16); Calcium 8.8 mg/dL (8.4-10.2); Carbon Dioxide 26 mmol/L (22-29); Chloride 106 mmol/L (96-108); Creatinine Clr Calc Pharmacy 55.4; Estimated Glomerular Filt Rate 47; Glucose Random 160 mg/dL (60-115); Lactic Acid 2.5 mmol/L (0.5-2.0); Potassium 3.4 mmol/L (3.3-5.1); Sodium 141 mmol/L (135-145); Total Protein 6.2 g/dL (6.5-8.0)
[2023-04-04 18:09] LABS: Cancel Lactic Acid Canceled
[2023-04-04 18:10] LABS: Reflex Lactate? No addnl Lactic Acid
--- NOTE | 2023-04-04 18:25 | PC.NURSE ---
Pt elevated lactic acid. Critical value-2.5. MD hernandez notified. Per does not want repeat draws of lactic. Elevated lactic likely d/t albuterol treatments.
[2023-04-04] MEDS: traMADoL HCL 50 MG TABLET 25 MG PO (20:23)
[2023-04-04] MEDS: Azithromycin 500 MG in 0.9 % Sodium Chloride 250 ML 125 MG IV (22:18)
[2023-04-04 22:54] LABS: Immunoglobulin E 147 kU/L (<OR=114)
[2023-04-05] VITALS (8 sets, daily range): BP systolic 131–161; BP diastolic 69–97; PULSE 93–124; RESP 17–20; TEMP 36–36.9; O2SAT 91–95
[2023-04-05] MEDS: methylPREDNISolone Sod Succ 40 MG/ML VIAL 80 MG IVPUSH ×5 (00:27→23:01)
[2023-04-05] MEDS: Calcium Carbonate 750 MG TAB.CHEW PO (05:35)
[2023-04-05] MEDS: Levothyroxine Sodium 50 MCG TABLET PO (06:45)
[2023-04-05] MEDS: guaiFENesin DM 200/20/10 ML 10 ML SYRUP PO (08:43)
[2023-04-05] MEDS: Atorvastatin Calcium 40 MG TABLET PO (08:43)
[2023-04-05] MEDS: buPROPion HCl XL 300 MG TAB.ER.24H PO (08:43)
[2023-04-05] MEDS: Escitalopram Oxalate 20 MG TABLET PO (08:43)
[2023-04-05] MEDS: QUEtiapine Fumarate 200 MG TABLET PO ×2 (08:43→20:19)
[2023-04-05] MEDS: Rivaroxaban 15 MG TABLET PO (08:43)
[2023-04-05] MEDS: 0.9 % Sodium Chloride Flush 3 ML SYRINGE IVFLUSH (08:43)
[2023-04-05] MEDS: Albuterol/Iprat 2.5/0.5MG 3 ML AMPUL.NEB INHALE ×3 (08:54→20:20)
[2023-04-05] MEDS: Albuterol Sulfate (0.083%) 2.5 MG/3 ML VIAL.NEB 10 MG INHALE (11:37)
[2023-04-05] MEDS: Magnesium Sulfate/H2O 2 GM/50 ML PIGGYBACK IV (12:03)
--- NOTE | 2023-04-05 12:14 | P.PNPL_ITS ---
Subjective Subjective Date of Service: 04/07/23 Interval history: The patient was seen on exam. He is feeling worse today. Again with significant chest tightness and wheezing. Has been on high doses of Solu- Medrol. Will go ahead and given additional albuterol at this time. Seems to h ave some degree of congestion. May have a component of bronchiolitis. He did have significant eosinophilia on arrival and that is now resolved on the steroids. Although, still continues to be symptomatic. Will continue with current regimen. Will focus on bronchopulmonary hygiene for chest clearance. His CD4 count is above 300. Still if she is no better by next week consider bronchoscopy to assess for smoldering infections including PCP. No evidence of pneumonitis on the CT scan and his last chest x-ray is relatively stable. Will repeat the chest x-ray tomorrow. Objective Data Labs 04/04/23 16:46 04/04/23 16:46 Labs: Laboratory Results - last 24 hr 04/02/23 04/03/23 04/04/23 05:50 13:01 16:46 WBC 11.8 H RBC 3.87 L Hgb 12.7 L Hct 37.0 L MCV 95.6 MCH 32.8 MCHC 34.3 RDW 13.5 Plt Count 152 L MPV 9.5 Immature Gran % (Auto) 2.9 H Neut % (Auto) 86.4 H Lymph % (Auto) 6.6 L [place] % (Auto) 4.0 Eos % (Auto) 0.0 Baso % (Auto) 0.1 Lymph # (Auto) 0.8 L [place] # (Auto) 0.5 Eos # (Auto) 0.0 Baso # (Auto) 0.0 Abs Immat Gran (auto) 0.34 H Absolute Neuts (auto) 10.2 H Absolute Nucleated RBC 0.000 Nucleated RBC % (auto) 0.0 VBG pH VBG pCO2 VBG pO2 VBG HCO3 VBG O2 Saturation VBG Base Excess Sodium Potassium Chloride Carbon Dioxide Anion Gap BUN Creatinine Estim Creat Clear Calc Estimated GFR Random Glucose Lactic Acid Calcium Total Bilirubin AST ALT Alkaline Phosphatase Total Protein Albumin IgE 147 H Complement C3 129 Complement C4 32 04/04/23 04/04/23 04/04/23 16:46 16:46 16:53 WBC RBC Hgb Hct MCV MCH MCHC RDW Plt Count MPV Immature Gran % (Auto) Neut % (Auto) Lymph % (Auto) [place] % (Auto) Eos % (Auto) Baso % (Auto) Lymph # (Auto) [place] # (Auto) Eos # (Auto) Baso # (Auto) Abs Immat Gran (auto) Absolute Neuts (auto) Absolute Nucleated RBC Nucleated RBC % (auto) VBG pH 7.55 H VBG pCO2 30 VBG pO2 97 VBG HCO3 26 VBG O2 Saturation 99.0 VBG Base Excess 4.9 Sodium 141 Potassium 3.4 D Chloride 106 Carbon Dioxide 26 Anion Gap 12 BUN 27 H Creatinine 1.51 H Estim Creat Clear Calc 55.4 Estimated GFR 47 Random Glucose 160 H Lactic Acid 2.5 H* Calcium 8.8 D Total Bilirubin 0.6 AST 29 ALT 30 Alkaline Phosphatase 58 Total Protein 6.2 L Albumin 3.7 IgE Complement C3 Complement C4 Microbiology Microbiology Results: Microbiology 03/30/23 19:51 Blood - Venous Blood Culture - Final No growth after 5 days. 03/30/23 19:51 Blood - Venous Blood Culture - Final No growth after 5 days. Review of Systems Constitutional: Reports fatigue Cardiovascular: Reports dyspnea on exertion Respiratory: Reports cough, Reports dyspnea on exertion and Reports wheezing Endocrine: Reports fatigue Allergic/Immunologic: Reports wheezing Physical Exam Vital Signs: Vital Signs: Last Vital Signs Temp 97.3 F 04/05/23 08:00 Pulse 109 H 04/05/23 11:48 Resp 19 04/05/23 11:48 BP 161/92 H 04/05/23 08:00 Pulse Ox 91 L 04/05/23 08:00 O2 Del Method Nasal Cannula 04/05/23 08:00 O2 Flow Rate 2 04/05/23 08:00 BMI result Body Mass Index 30.9 Const: Other: General? awake alert x3, no respiratory distress, able to communicate in full sentences.? Neck? supple no JVD. CVS? regular rate rhythm, Respiratory lungs? bilateral expiratory wheeze Gastrointestinal abdomen soft, non tender, bowel sounds audible,? no guarding , no rigidity. Extremities no? edema. Neuro nonfocal? moving all 4 extremity speech clear. Skin no rash psych appropriate affect Procedures Date of Service Date of Service: 04/07/23 Assessment and Plan Assessment and plan (1) Asthma exacerbation: Status: Acute (2) Acute respiratory failure with hypoxia: Status: Acute (3) HIV (human immunodeficiency virus infection): Status: Acute Plan continue solumedrol Respiratory therapy titrate oxygen to keep pox>90% start CPT with aerobika sputum cx CXR in AM Consider bronchoscopy if no better Will need to f/u with ID re: HIV treatment Time Spent With Patient Time: Total time managing care of this patient today ____ minutes. Progress Note: Quality Stroke Does the patient have a stroke diagnosis?: No
--- NOTE | 2023-04-05 12:19 | HO.PM.IMPN ---
Subjective Subjective Date of Service: 04/05/23 Interval History: acute exacerbation of obstructive lung disease.? Review of Systems sob seems improving no chest pain or fever or cough or phlegm Physical Exam Vital Signs: Vital Signs: Last Vital Signs Temp 97.3 F 04/05/23 08:00 Pulse 109 H 04/05/23 11:48 Resp 19 04/05/23 11:48 BP 161/92 H 04/05/23 08:00 Pulse Ox 91 L 04/05/23 08:00 O2 Del Method Nasal Cannula 04/05/23 08:00 O2 Flow Rate 2 04/05/23 08:00 BMI result Body Mass Index 30.9 General?? awake alert x3, somehwat sob CVS? regular rate rhythm, Respiratory lungs? bilateral expiratory wheeze, diffuse Gastrointestinal abdomen soft, non tender, bowel sounds audible,? no guarding or rigidity. Neuro nonfocal ?Extremities no? edema. Skin no rash psych appropriate affect Objective Data Active Medications Acetaminophen (Acetaminophen 325 Mg Tablet) 650 mg PO Q6H PRN PRN Reason: Pain, Mild (Pain Scale 1-3) Last Admin: 04/04/23 05:40 Dose: 650 mg Documented By: BELLO Albuterol/Ipratropium (Albuterol/Iprat 2.5/0.5mg 3 Ml Ampul.Neb) 3 ml INHALE RQ4H WHILE AWAKE [facility] Last Admin: 04/05/23 11:41 Dose: Not Given Documented By: ROSINA Non-Admin Reason: Duplicate Order Albuterol/Ipratropium (Albuterol/Iprat 2.5/0.5mg 3 Ml Ampul.Neb) 3 ml INHALE Q4H PRN PRN Reason: Wheezing Last Admin: 04/03/23 03:27 Dose: 3 ml Documented By: AMY Atorvastatin Calcium (Atorvastatin Calcium 40 Mg Tablet) 40 mg PO DAILY [facility] Last Admin: 04/05/23 08:43 Dose: 40 mg Documented By: CHIQUITA Bupropion HCl (Bupropion Hcl Xl 300 Mg Tab.Er.24h) 300 mg PO DAILY [facility] Last Admin: 04/05/23 08:43 Dose: 300 mg Documented By: CHIQUITA Calcium Carbonate (Calcium Carbonate 750 Mg Tab.Chew) 750 mg PO Q6H PRN PRN Reason: heartburn Last Admin: 04/05/23 05:35 Dose: 750 mg Documented By: COLETTE Escitalopram Oxalate (Escitalopram Oxalate 20 Mg Tablet) 20 mg PO DAILY [facility] Last Admin: 04/05/23 08:43 Dose: 20 mg Documented By: CHIQUITA Guaifenesin (Guaifenesin [place] 600 Mg Tab.Er.12h) 1,200 mg PO BID [facility] Azithromycin 500 mg/ Sodium (Chloride) 250 mls @ 125 mls/hr IV 2200 [facility] Last Infusion: 04/05/23 00:29 Dose: 0 mls/hr Documented By: COLETTE Magnesium Sulfate (Magnesium Sulfate/H2o) 2 gm in 50 mls @ 25 mls/hr IV ONCE ONE Stop: 04/05/23 13:27 Last Admin: 04/05/23 12:03 Dose: 25 mls/hr Documented By: CHIQUITA Levothyroxine Sodium (Levothyroxine Sodium 50 Mcg Tablet) 50 mcg PO DAILY@0630 [facility] Last Admin: 04/05/23 06:45 Dose: 50 mcg Documented By: COLETTE Melatonin (Melatonin 3 Mg Tablet) 6 mg PO BEDTIME PRN PRN Reason: Insomnia Methylprednisolone Sodium Succinate (Methylprednisolone Sod Succ 40 Mg/Ml Vial) 80 mg IVPUSH Q6H [facility] Last Admin: 04/05/23 11:12 Dose: 80 mg Documented By: CHIQUITA Ondansetron HCl (Ondansetron Hcl 4 Mg/2 Ml Vial) 4 mg IVPUSH Q8H PRN PRN Reason: Nausea and Vomiting Quetiapine Fumarate (Quetiapine Fumarate 200 Mg Tablet) 200 mg PO BID [facility] Last Admin: 04/05/23 08:43 Dose: 200 mg Documented By: CHIQUITA Rivaroxaban (Rivaroxaban 15 Mg Tablet) 15 mg PO DAILY [facility] Last Admin: 04/05/23 08:43 Dose: 15 mg Documented By: CHIQUITA Sodium Chloride (0.9 % Sodium Chloride Flush 3 Ml Syringe) 3 ml IVFLUSH QSHIFT [facility] Last Admin: 04/05/23 08:43 Dose: 3 ml Documented By: CHIQUITA Tramadol HCl (Tramadol Hcl 50 Mg Tablet) 25 mg PO Q6H PRN PRN Reason: Pain, Severe (Pain Scale 7-10) Last Admin: 04/04/23 20:23 Dose: 25 mg Documented By: COLETTE Labs 04/04/23 16:46 04/04/23 16:46 Labs: Laboratory Results - last 24 hr 04/02/23 04/03/23 04/04/23 05:50 13:01 16:46 MCV 95.6 MCH 32.8 MCHC 34.3 RDW 13.5 Plt Count 152 L MPV 9.5 Immature Gran % (Auto) 2.9 H Neut % (Auto) 86.4 H Lymph % (Auto) 6.6 L [place] % (Auto) 4.0 Eos % (Auto) 0.0 Baso % (Auto) 0.1 Lymph # (Auto) 0.8 L [place] # (Auto) 0.5 Eos # (Auto) 0.0 Baso # (Auto) 0.0 Abs Immat Gran (auto) 0.34 H Absolute Neuts (auto) 10.2 H Absolute Nucleated RBC 0.000 Nucleated RBC % (auto) 0.0 VBG pH VBG pCO2 VBG pO2 VBG HCO3 VBG O2 Saturation VBG Base Excess Anion Gap Estim Creat Clear Calc Estimated GFR Random Glucose Lactic Acid Calcium Total Bilirubin AST ALT Alkaline Phosphatase Total Protein Albumin IgE 147 H Complement C3 129 Complement C4 32 04/04/23 04/04/23 04/04/23 16:46 16:46 16:53 MCV MCH MCHC RDW Plt Count MPV Immature Gran % (Auto) Neut % (Auto) Lymph % (Auto) [place] % (Auto) Eos % (Auto) Baso % (Auto) Lymph # (Auto) [place] # (Auto) Eos # (Auto) Baso # (Auto) Abs Immat Gran (auto) Absolute Neuts (auto) Absolute Nucleated RBC Nucleated RBC % (auto) VBG pH 7.55 H VBG pCO2 30 VBG pO2 97 VBG HCO3 26 VBG O2 Saturation 99.0 VBG Base Excess 4.9 Anion Gap 12 Estim Creat Clear Calc 55.4 Estimated GFR 47 Random Glucose 160 H Lactic Acid 2.5 H* Calcium 8.8 D Total Bilirubin 0.6 AST 29 ALT 30 Alkaline Phosphatase 58 Total Protein 6.2 L Albumin 3.7 IgE Complement C3 Complement C4 Microbiology Microbiology Results: Microbiology 03/30/23 19:51 Blood Culture - Final Blood - Venous No growth after 5 days. 08/19/23 19:51 Blood Culture - Final Blood - Venous No growth after 5 days. Assessment and Plan (1) Asthma exacerbation: Status: Acute (2) Acute respiratory failure with hypoxia: Status: Acute (3) CKD (chronic kidney disease) stage 3, GFR 30-59 ml/min: Status: Acute Plan 67-year-old male with pertinent history of HIV on Biktarvy, mood disorder, tobacco use disorder who presents to the emergency department for evaluation of dyspnea. ? Acute? hypoxic respiratory failure secondary to acute exacerbation of obstructive lung disease.? slowly improving with less shortness of breath and cough ? ? ?CTA chest showed no PE , but showed moderate emphysematous disease, chest x-ray unremarkable KUB showed no acute abnormality or obstruction. cxr repeat on 04/03 -seems fine. ? ? ? sob seems similar to yesterday ? ? ? continue IV Solumedrol 60 b.i.d., added magnesium 2gmx1,extra duoneb 1 hours ? rx, continue DuoNeb updraft q.4 hours while awake, continue azithromycin and cough medication,will wean O2 as tolerated. ? ? ? recommend out of bed to chair and incentive spirometry, outpatient pulmonology follow-up for PFTs ?? ? pulm eval-continue above management ,if does not improve may need bronchiscopy. ?? Anion Gap? metabolic acidosis likely due to lactic acidosis, stable chronic kidney disease stage 3, stable blood sugars , no diarrhea, ABG showed stable CO2, drug toxicology negative ? ? ? gap closed bicarb normalized. ? lactic acidosis likely due Biktarvy? as per Nephrology,? question exacerbated by updraft treatment and dehydration, lactic acidosis improved DC IV fluid. ?HIV.?? hold Biktarvy since cause lactic acidosis, CD4 count absolute count is 272 low, CD 8 count 179, recommend follow-up at [facility] Clinic for alternate medication ?Tobacco use disorder.?? declined nicotine patch, gradually weaning, smoke 4 cigarettes a day, counseling done. ?Mood disorder.? Continue home mood stabilizers ? Chronic kidney disease stage 3.? Creatinine at baseline. ? 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 hypothyroidism continue Synthroid DVT prophylaxis: on Xarelto Full code ?inpatient ongoing? hospitalization need:? acute respiratory failure due to COPD exacerbation requiring IV steroids IV antibiotics and expert consultation. Time Spent With Patient Time: Total time managing care of this patient today ____ minutes. Quality Stroke Does the patient have a stroke diagnosis?: No VTE Prior VTE?: No VTE Risk Level:: Medical - moderate - high VTE Device Contraindication: Treatment Not Indicated VTE Drug Contraindication: N/A - Med Ordered
[2023-04-05 15:58] LABS: Magnesium 2.5 mg/dL (1.6-2.6); Potassium 3.8 mmol/L (3.3-5.1)
[2023-04-05] MEDS: guaiFENesin LA 600 MG TAB.ER.12H 1200 MG PO (20:19)
[2023-04-05] MEDS: traMADoL HCL 50 MG TABLET 25 MG PO (20:19)
[2023-04-05] MEDS: clonazePAM 1 MG TABLET PO (21:32)
[2023-04-05] MEDS: Azithromycin 500 MG in 0.9 % Sodium Chloride 250 ML 125 MG IV (23:00)
[2023-04-06] VITALS (9 sets, daily range): BP systolic 108–143; BP diastolic 68–79; PULSE 88–109; RESP 16–18; TEMP 36–36.7; O2SAT 88–94
[2023-04-06] MEDS: oxyCODONE HCl Immed Release 5 MG TABLET PO (00:31)
--- NOTE | 2023-04-06 00:34 | PC.NURSE ---
pt in room 380 Ryder Miller complained of pain on his right side. He was given his PRN med Tramadol. Around 0030 he stated that he was still experiencing severe pain on his right side of stomach. Dr. Lomeli was notified.
[2023-04-06] MEDS: traMADoL HCL 50 MG TABLET 25 MG PO ×2 (04:45→16:16)
[2023-04-06] MEDS: Albuterol/Iprat 2.5/0.5MG 3 ML AMPUL.NEB INHALE ×5 (04:56→19:27)
[2023-04-06] MEDS: methylPREDNISolone Sod Succ 40 MG/ML VIAL 80 MG IVPUSH ×4 (05:14→23:12)
[2023-04-06] MEDS: Levothyroxine Sodium 50 MCG TABLET PO (05:17)
[2023-04-06] MEDS: Atorvastatin Calcium 40 MG TABLET PO (08:28)
[2023-04-06] MEDS: Escitalopram Oxalate 20 MG TABLET PO (08:28)
[2023-04-06] MEDS: Rivaroxaban 15 MG TABLET PO (08:28)
[2023-04-06] MEDS: QUEtiapine Fumarate 200 MG TABLET PO ×2 (08:28→21:05)
[2023-04-06] MEDS: guaiFENesin LA 600 MG TAB.ER.12H 1200 MG PO ×2 (08:28→21:04)
[2023-04-06] MEDS: buPROPion HCl XL 300 MG TAB.ER.24H PO (08:28)
[2023-04-06] MEDS: 0.9 % Sodium Chloride Flush 3 ML SYRINGE IVFLUSH ×3 (08:30→21:05)
[2023-04-06] MEDS: Magnesium Sulfate/D5W 1 GM/100 ML PIGGYBACK IV (09:00)
--- NOTE | 2023-04-06 11:03 | P.PNIM_ITS ---
Subjective Subjective Date of Service: 04/06/23 Interval History: acute exacerbation of obstructive lung disease.? Review of Systems sob seems somewhat improvng but still sob with minimum excersion no chest pain or fever or cough or phlegm Physical Exam Vital Signs: Vital Signs: Last Vital Signs Temp 96.8 F 04/06/23 07:35 Pulse 88 04/06/23 08:33 Resp 16 04/06/23 08:33 BP 108/68 04/06/23 07:35 Pulse Ox 92 04/06/23 07:35 O2 Del Method Nasal Cannula 04/06/23 07:35 O2 Flow Rate 2 04/06/23 07:35 BMI result Body Mass Index 30.9 General?? awake alert x3, somehwat sob CVS? regular rate rhythm, Respiratory lungs? bilateral expiratory wheeze, diffuse Gastrointestinal abdomen soft, non tender, bowel sounds audible,? no guarding or rigidity. Neuro nonfocal ?Extremities no? edema. Skin no rash psych appropriate affect Objective Data Active Medications Acetaminophen (Acetaminophen 325 Mg Tablet) 650 mg PO Q6H PRN PRN Reason: Pain, Mild (Pain Scale 1-3) Last Admin: 04/04/23 05:40 Dose: 650 mg Documented By: BELLO Albuterol/Ipratropium (Albuterol/Iprat 2.5/0.5mg 3 Ml Ampul.Neb) 3 ml INHALE RQ4H WHILE AWAKE [facility] Last Admin: 04/06/23 08:32 Dose: 3 ml Documented By: ZEUS Albuterol/Ipratropium (Albuterol/Iprat 2.5/0.5mg 3 Ml Ampul.Neb) 3 ml INHALE Q4H PRN PRN Reason: Wheezing Last Admin: 04/06/23 04:56 Dose: 3 ml Documented By: AMY Atorvastatin Calcium (Atorvastatin Calcium 40 Mg Tablet) 40 mg PO DAILY [facility] Last Admin: 04/06/23 08:28 Dose: 40 mg Documented By: CESAR Bupropion HCl (Bupropion Hcl Xl 300 Mg Tab.Er.24h) 300 mg PO DAILY [facility] Last Admin: 04/06/23 08:28 Dose: 300 mg Documented By: CESAR Calcium Carbonate (Calcium Carbonate 750 Mg Tab.Chew) 750 mg PO Q6H PRN PRN Reason: heartburn Last Admin: 04/05/23 05:35 Dose: 750 mg Documented By: COLETTE Clonazepam (Clonazepam 1 Mg Tablet) 1 mg PO BID PRN PRN Reason: anxiety/restlessness Last Admin: 04/05/23 21:32 Dose: 1 mg Documented By: COLETTE Escitalopram Oxalate (Escitalopram Oxalate 20 Mg Tablet) 20 mg PO DAILY [facility] Last Admin: 04/06/23 08:28 Dose: 20 mg Documented By: CESAR Guaifenesin (Guaifenesin La 600 Mg Tab.Er.12h) 1,200 mg PO BID [facility] Last Admin: 04/06/23 08:28 Dose: 1,200 mg Documented By: CESAR Azithromycin 500 mg/ Sodium (Chloride) 250 mls @ 125 mls/hr IV 2200 [facility] Last Infusion: 04/06/23 01:17 Dose: 0 mls/hr Documented By: COLETTE Levothyroxine Sodium (Levothyroxine Sodium 50 Mcg Tablet) 50 mcg PO DAILY@0630 [facility] Last Admin: 04/06/23 05:17 Dose: 50 mcg Documented By: COLETTE Melatonin (Melatonin 3 Mg Tablet) 6 mg PO BEDTIME PRN PRN Reason: Insomnia Methylprednisolone Sodium Succinate (Methylprednisolone Sod Succ 40 Mg/Ml Vial) 80 mg IVPUSH Q6H [facility] Last Admin: 04/06/23 05:14 Dose: 80 mg Documented By: COLETTE Ondansetron HCl (Ondansetron Hcl 4 Mg/2 Ml Vial) 4 mg IVPUSH Q8H PRN PRN Reason: Nausea and Vomiting Quetiapine Fumarate (Quetiapine Fumarate 200 Mg Tablet) 200 mg PO BID [facility] Last Admin: 04/06/23 08:28 Dose: 200 mg Documented By: CESAR Rivaroxaban (Rivaroxaban 15 Mg Tablet) 15 mg PO DAILY [facility] Last Admin: 04/06/23 08:28 Dose: 15 mg Documented By: CESAR Sodium Chloride (0.9 % Sodium Chloride Flush 3 Ml Syringe) 3 ml IVFLUSH QSHIFT [facility] Last Admin: 04/06/23 08:30 Dose: 3 ml Documented By: CESAR Tramadol HCl (Tramadol Hcl 50 Mg Tablet) 25 mg PO Q6H PRN PRN Reason: Pain, Severe (Pain Scale 7-10) Last Admin: 04/06/23 04:45 Dose: 25 mg Documented By: COLETTE Labs 04/04/23 16:46 04/05/23 15:34 Labs: Laboratory Results - last 24 hr 04/05/23 15:34 Magnesium 2.5 Microbiology Microbiology Results: Microbiology 04/05/23 15:22 Gram Stain - Final Sputum - Expectorated Sputum Culture - Final Assessment and Plan (1) Asthma exacerbation: Status: Acute (2) Acute respiratory failure with hypoxia: Status: Acute (3) CKD (chronic kidney disease) stage 3, GFR 30-59 ml/min: Status: Acute Plan 67-year-old male with pertinent history of HIV on Biktarvy, mood disorder, tobacco use disorder who presents to the emergency department for evaluation of dyspnea. ? Acute? hypoxic respiratory failure secondary to acute exacerbation of obstructive lung disease.? slowly improving with less shortness of breath and cough ? ? ?CTA chest showed no PE , but showed moderate emphysematous disease, chest x-ray unremarkable KUB showed no acute abnormality or obstruction. cxr repeat on 04/03 -seems fine. ? ? ? sob seems similar to yesterday ? ? ? continue IV Solumedrol 60 b.i.d., added magnesium, continue DuoNeb updraft q.4 hours while awake, continue azithromycin and cough medication,will wean O2 as tolerated. ? ? ? recommend out of bed to chair and incentive spirometry, outpatient pulmonology follow-up for PFTs ?? ? pulm eval-continue above management ,if does not improve may need bronchiscopy. ?? Anion Gap? metabolic acidosis likely due to lactic acidosis, stable chronic kidney disease stage 3, stable blood sugars , no diarrhea, ABG showed stable CO2, drug toxicology negative ? ? ? gap closed bicarb normalized. ? lactic acidosis likely due Biktarvy? as per Nephrology,? question exacerbated by updraft treatment and dehydration, lactic acidosis improved DC IV fluid. ?HIV.?? hold Biktarvy since cause lactic acidosis, CD4 count absolute count is 272 low, CD 8 count 179, recommend follow-up at [facility] for alternate medication ?Tobacco use disorder.?? declined nicotine patch, gradually weaning, smoke 4 cigarettes a day, counseling done. ?Mood disorder.? Continue home mood stabilizers ? Chronic kidney disease stage 3.? Creatinine at baseline. ? 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 hypothyroidism continue Synthroid DVT prophylaxis: on Xarelto Full code ?inpatient ongoing? hospitalization need:? acute respiratory failure due to COPD exacerbation requiring IV steroids IV antibiotics and may need bronchoscopy if does not improve. Time Spent With Patient Time: Total time managing care of this patient today ____ minutes. Quality Stroke Does the patient have a stroke diagnosis?: No VTE Prior VTE?: No VTE Risk Level:: Medical - moderate - high VTE Device Contraindication: Treatment Not Indicated VTE Drug Contraindication: N/A - Med Ordered
[2023-04-06] MEDS: Azithromycin 500 MG in 0.9 % Sodium Chloride 250 ML 125 MG IV (21:04)
[2023-04-07 03:29] VITALS: BP 145/79; PULSE 87; RESP 14; TEMP 36.1; O2SAT 90
[2023-04-07] MEDS: methylPREDNISolone Sod Succ 40 MG/ML VIAL 80 MG IVPUSH ×4 (04:54→22:22)
[2023-04-07] MEDS: Levothyroxine Sodium 50 MCG TABLET PO (05:30)
[2023-04-07 07:41] VITALS: BP 137/77; PULSE 99; RESP 20; TEMP 36.2; O2SAT 99
[2023-04-07] MEDS: QUEtiapine Fumarate 200 MG TABLET PO ×2 (07:55→20:40)
[2023-04-07] MEDS: Rivaroxaban 15 MG TABLET PO (07:55)
[2023-04-07] MEDS: guaiFENesin LA 600 MG TAB.ER.12H 1200 MG PO ×2 (07:55→20:40)
[2023-04-07] MEDS: Escitalopram Oxalate 20 MG TABLET PO (07:55)
[2023-04-07] MEDS: buPROPion HCl XL 300 MG TAB.ER.24H PO (07:55)
[2023-04-07] MEDS: Magnesium Sulfate/H2O 2 GM/50 ML PIGGYBACK IV (07:55)
[2023-04-07] MEDS: Atorvastatin Calcium 40 MG TABLET PO (07:55)
[2023-04-07] MEDS: Albuterol Sulfate (0.083%) 2.5 MG/3 ML VIAL.NEB 10 MG INHALE (08:04)
[2023-04-07] MEDS: traMADoL HCL 50 MG TABLET 25 MG PO (08:05)
[2023-04-07 08:08] VITALS: PULSE 86; RESP 20; O2SAT 90
--- NOTE | 2023-04-07 10:38 | P.PNIM_ITS ---
Subjective Subjective Date of Service: 04/07/23 Interval History: acute exacerbation of obstructive lung disease.? Review of Systems sob seems improving very slowly ( similar to yesterday)but still sob with minimum excersion no chest pain or fever or cough or phlegm Physical Exam Vital Signs: Vital Signs: Last Vital Signs Temp 97.1 F 04/07/23 07:41 Pulse 86 04/07/23 08:08 Resp 20 04/07/23 08:08 BP 137/77 04/07/23 07:41 Pulse Ox 99 04/07/23 07:41 O2 Del Method Nasal Cannula 04/07/23 07:41 O2 Flow Rate 5 04/07/23 07:41 BMI result Body Mass Index 30.9 General?? awake alert x3, somehwat sob CVS? regular rate rhythm, Respiratory lungs? bilateral expiratory wheeze, diffuse Gastrointestinal abdomen soft, non tender, bowel sounds audible,? no guarding or rigidity. Neuro nonfocal ?Extremities no? edema. Skin no rash psych appropriate affect Objective Data Active Medications Acetaminophen (Acetaminophen 325 Mg Tablet) 650 mg PO Q6H PRN PRN Reason: Pain, Mild (Pain Scale 1-3) Last Admin: 04/04/23 05:40 Dose: 650 mg Documented By: BELLO Atorvastatin Calcium (Atorvastatin Calcium 40 Mg Tablet) 40 mg PO DAILY [facility] Last Admin: 04/07/23 07:55 Dose: 40 mg Documented By: LILIYA Bupropion HCl (Bupropion Hcl Xl 300 Mg Tab.Er.24h) 300 mg PO DAILY [facility] Last Admin: 04/07/23 07:55 Dose: 300 mg Documented By: LILIYA Calcium Carbonate (Calcium Carbonate 750 Mg Tab.Chew) 750 mg PO Q6H PRN PRN Reason: heartburn Last Admin: 04/05/23 05:35 Dose: 750 mg Documented By: COLETTE Clonazepam (Clonazepam 1 Mg Tablet) 1 mg PO BID PRN PRN Reason: anxiety/restlessness Last Admin: 04/05/23 21:32 Dose: 1 mg Documented By: COLETTE Escitalopram Oxalate (Escitalopram Oxalate 20 Mg Tablet) 20 mg PO DAILY [facility] Last Admin: 04/07/23 07:55 Dose: 20 mg Documented By: LILIYA Guaifenesin (Guaifenesin La 600 Mg Tab.Er.12h) 1,200 mg PO BID [facility] Last Admin: 04/07/23 07:55 Dose: 1,200 mg Documented By: LILIYA Azithromycin 500 mg/ Sodium (Chloride) 250 mls @ 125 mls/hr IV 2200 [facility] Last Infusion: 04/06/23 23:12 Dose: 0 mls/hr Documented By: COLETTE Levothyroxine Sodium (Levothyroxine Sodium 50 Mcg Tablet) 50 mcg PO DAILY@0630 [facility] Last Admin: 04/07/23 05:30 Dose: 50 mcg Documented By: COLETTE Melatonin (Melatonin 3 Mg Tablet) 6 mg PO BEDTIME PRN PRN Reason: Insomnia Methylprednisolone Sodium Succinate (Methylprednisolone Sod Succ 40 Mg/Ml Vial) 80 mg IVPUSH Q6H [facility] Last Admin: 04/07/23 04:54 Dose: 80 mg Documented By: COLETTE Ondansetron HCl (Ondansetron Hcl 4 Mg/2 Ml Vial) 4 mg IVPUSH Q8H PRN PRN Reason: Nausea and Vomiting Quetiapine Fumarate (Quetiapine Fumarate 200 Mg Tablet) 200 mg PO BID [facility] Last Admin: 04/07/23 07:55 Dose: 200 mg Documented By: LILIYA Rivaroxaban (Rivaroxaban 15 Mg Tablet) 15 mg PO DAILY [facility] Last Admin: 04/07/23 07:55 Dose: 15 mg Documented By: LILIYA Sodium Chloride (0.9 % Sodium Chloride Flush 3 Ml Syringe) 3 ml IVFLUSH QSHIFT [facility] Last Admin: 04/07/23 08:07 Dose: Not Given Documented By: LILIYA Non-Admin Reason: IV Running Tramadol HCl (Tramadol Hcl 50 Mg Tablet) 25 mg PO Q6H PRN PRN Reason: Pain, Moderate(Pain Scale 4-6) Last Admin: 04/07/23 08:05 Dose: 25 mg Documented By: LILIYA Labs 04/04/23 16:46 04/05/23 15:34 Microbiology Microbiology Results: Microbiology 04/05/23 15:22 Gram Stain - Final Sputum - Expectorated Sputum Culture - Final Assessment and Plan (1) Asthma exacerbation: Status: Acute (2) Acute respiratory failure with hypoxia: Status: Acute (3) CKD (chronic kidney disease) stage 3, GFR 30-59 ml/min: Status: Acute Plan 67-year-old male with pertinent history of HIV on Biktarvy, mood disorder, tobacco use disorder who presents to the emergency department for evaluation of dyspnea. ? Acute? hypoxic respiratory failure secondary to acute exacerbation of obstructive lung disease.? slowly improving with less shortness of breath and cough ? ? ?CTA chest showed no PE , but showed moderate emphysematous disease, chest x-ray unremarkable KUB showed no acute abnormality or obstruction. cxr repeat on 04/03 -seems fine. ? ? ? sob seems similar to yesterday ? ? ? continue IV Solumedrol 60 b.i.d., added magnesium 2gm iv and albuterol 1 hour long rx, continue DuoNeb updraft q.4 hours while awake, continue azithromycin and cough medication,will wean O2 as tolerated. ? ? ? recommend out of bed to chair and incentive spirometry, outpatient pulmonology follow-up for PFTs ?? ? pulm eval-continue above management ,if does not improve may need bronchiscopy. ?? Anion Gap? metabolic acidosis likely due to lactic acidosis, stable chronic kidney disease stage 3, stable blood sugars , no diarrhea, ABG showed stable CO2, drug toxicology negative ? ? ? gap closed bicarb normalized. ? lactic acidosis likely due Biktarvy? as per Nephrology,? question exacerbated by updraft treatment and dehydration, lactic acidosis improved DC IV fluid. ?HIV.?? hold Biktarvy since cause lactic acidosis, CD4 count absolute count is 272 low, CD 8 count 179, recommend follow-up at [facility] for alternate medication ?Tobacco use disorder.?? declined nicotine patch, gradually weaning, smoke 4 cigarettes a day, counseling done. ?Mood disorder.? Continue home mood stabilizers ? Chronic kidney disease stage 3.? Creatinine at baseline. ? 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 hypothyroidism continue Synthroid DVT prophylaxis: on Xarelto Full code ?inpatient ongoing? hospitalization need:? acute respiratory failure due to COPD exacerbation requiring IV steroids IV antibiotics and may need bronchoscopy if does not improve. Time Spent With Patient Time: Total time managing care of this patient today ____ minutes. Quality Stroke Does the patient have a stroke diagnosis?: No VTE Prior VTE?: No VTE Risk Level:: Medical - moderate - high VTE Device Contraindication: Treatment Not Indicated VTE Drug Contraindication: N/A - Med Ordered
--- NOTE | 2023-04-07 12:11 | PM.PNPUL ---
Subjective Subjective Date of Service: 04/07/23 Interval history: The patient was seen on exam. Slightly better overall. Still on high-dose steroids. Still requiring oxygen. He did have a chest x-ray demonstrating a new right-sided fluffy opacity in addition to small pleural effusions. Continues to have wheezing. The patient's CD4 count is below 300. Based on his lack of response the patient may benefit from a bronchoscopy to rule out PCP. Will monitor him and reassess tomorrow to see if the patient requires a bronchoscopy. Objective Data Labs 04/04/23 16:46 04/05/23 15:34 Microbiology Microbiology Results: Microbiology 04/05/23 15:22 Sputum - Expectorated Gram Stain - Final 04/05/23 15:22 Sputum - Expectorated Sputum Culture - Final 03/30/23 19:51 Blood - Venous Blood Culture - Final No growth after 5 days. 03/30/23 19:51 Blood - Venous Blood Culture - Final No growth after 5 days. Review of Systems Constitutional: Reports fatigue Cardiovascular: Reports dyspnea on exertion Respiratory: Reports cough, Reports dyspnea on exertion and Reports wheezing Endocrine: Reports fatigue Allergic/Immunologic: Reports wheezing Physical Exam Vital Signs: Vital Signs: Last Vital Signs Temp 97.1 F 04/07/23 07:41 Pulse 86 04/07/23 08:08 Resp 20 04/07/23 08:08 BP 137/77 04/07/23 07:41 Pulse Ox 99 04/07/23 07:41 O2 Del Method Nasal Cannula 04/07/23 07:41 O2 Flow Rate 5 04/07/23 07:41 BMI result Body Mass Index 30.9 Const: Other: General? awake alert x3, no respiratory distress, able to communicate in full sentences.? Neck? supple no JVD. CVS? regular rate rhythm, Respiratory lungs? bilateral expiratory wheeze Gastrointestinal abdomen soft, non tender, bowel sounds audible,? no guarding , no rigidity. Extremities no? edema. Neuro nonfocal? moving all 4 extremity speech clear. Skin no rash psych appropriate affect Procedures Date of Service Date of Service: 04/07/23 Assessment and Plan Assessment and plan (1) Asthma exacerbation: Status: Acute (2) Acute respiratory failure with hypoxia: Status: Acute (3) HIV (human immunodeficiency virus infection): Status: Acute (4) Pneumonia: Status: Acute Plan continue solumedrol Respiratory therapy titrate oxygen to keep pox>90% start CPT with aerobika sputum cx Consider bronchoscopy if no better Will need to f/u with ID re: HIV treatment Time Spent With Patient Time: Total time managing care of this patient today ____ minutes. Progress Note: Quality Stroke Does the patient have a stroke diagnosis?: No
[2023-04-07 15:23] VITALS: BP 142/78; PULSE 115; RESP 24; TEMP 36.4; O2SAT 90
[2023-04-07] MEDS: 0.9 % Sodium Chloride Flush 3 ML SYRINGE IVFLUSH ×2 (17:02→19:50)
[2023-04-07 19:51] VITALS: BP 149/65; PULSE 97; RESP 17; TEMP 36.1; O2SAT 92
[2023-04-07] MEDS: Azithromycin 500 MG in 0.9 % Sodium Chloride 250 ML 125 MG IV (22:22)
[2023-04-08 01:03] VITALS: BP 132/70; PULSE 95; RESP 20; TEMP 36
[2023-04-08 01:06] VITALS: BP 132/70; PULSE 95; RESP 18; TEMP 36; O2SAT 95
[2023-04-08] MEDS: traMADoL HCL 50 MG TABLET 25 MG PO ×2 (03:35→23:15)
[2023-04-08] MEDS: methylPREDNISolone Sod Succ 40 MG/ML VIAL 80 MG IVPUSH ×2 (05:46→11:18)
[2023-04-08] MEDS: Levothyroxine Sodium 50 MCG TABLET PO (05:46)
[2023-04-08 07:33] LABS: Anti Nuclear Antibody Screen NEGATIVE (NEGATIVE)
[2023-04-08 08:00] VITALS: BP 161/91; PULSE 86; RESP 20; TEMP 36.4; O2SAT 92
[2023-04-08] MEDS: ondansetron HCL 4 MG/2 ML VIAL IVPUSH (09:32)
[2023-04-08] MEDS: Escitalopram Oxalate 20 MG TABLET PO (09:36)
[2023-04-08] MEDS: QUEtiapine Fumarate 200 MG TABLET PO ×2 (09:36→20:35)
[2023-04-08] MEDS: 0.9 % Sodium Chloride Flush 3 ML SYRINGE IVFLUSH ×3 (09:36→21:27)
[2023-04-08] MEDS: buPROPion HCl XL 300 MG TAB.ER.24H PO (09:36)
[2023-04-08] MEDS: Atorvastatin Calcium 40 MG TABLET PO (09:36)
[2023-04-08] MEDS: guaiFENesin LA 600 MG TAB.ER.12H 1200 MG PO ×2 (09:36→20:35)
[2023-04-08] MEDS: Rivaroxaban 15 MG TABLET PO (12:07)
[2023-04-08 12:18] LABS: Albumin Level 3.3 g/dL (3.5-5.0); Anion Gap 12 (12-20); Blood Urea Nitrogen 38 mg/dL (9-16); Calcium 7.7 mg/dL (8.4-10.2); Carbon Dioxide 26 mmol/L (22-29); Chloride 106 mmol/L (96-108); Creatinine Clr Calc Pharmacy 65.9; Estimated Glomerular Filt Rate 57; Glucose Random 97 mg/dL (60-115); Potassium 4.2 mmol/L (3.3-5.1); Sodium 140 mmol/L (135-145)
[2023-04-08 12:25] LABS: B Type Natriuretic Peptide 44 pg/mL (<100)
[2023-04-08 13:09] LABS: Lactate Dehydrogenase 325 U/L (118-273)
--- NOTE | 2023-04-08 13:09 | HO.PM.IMPN ---
Subjective Subjective Date of Service: 04/08/23 Interval History: acute exacerbation of obstructive lung disease.? Review of Systems sob seems similar denies any chest pain Physical Exam Vital Signs: Vital Signs: Last Vital Signs Temp 97.6 F 04/08/23 08:00 Pulse 86 04/08/23 08:00 Resp 20 04/08/23 08:00 BP 161/91 H 04/08/23 08:00 Pulse Ox 92 04/08/23 08:00 O2 Del Method Nasal Cannula 04/08/23 08:00 O2 Flow Rate 5 04/08/23 08:00 BMI result Body Mass Index 30.9 General?? awake alert x3, somehwat sob CVS? regular rate rhythm, Lungs -air entry dimished ,has some wheezin Gastrointestinal abdomen soft, non tender, bowel sounds audible,? no guarding or rigidity. Neuro nonfocal ?Extremities no? edema. Skin no rash psych appropriate affect Objective Data Active Medications Acetaminophen (Acetaminophen 325 Mg Tablet) 650 mg PO Q6H PRN PRN Reason: Pain, Mild (Pain Scale 1-3) Last Admin: 04/04/23 05:40 Dose: 650 mg Documented By: BELLO Atorvastatin Calcium (Atorvastatin Calcium 40 Mg Tablet) 40 mg PO DAILY [facility] Last Admin: 04/08/23 09:36 Dose: 40 mg Documented By: CHIQUITA Bupropion HCl (Bupropion Hcl Xl 300 Mg Tab.Er.24h) 300 mg PO DAILY [facility] Last Admin: 04/08/23 09:36 Dose: 300 mg Documented By: CHIQUITA Calcium Carbonate (Calcium Carbonate 750 Mg Tab.Chew) 750 mg PO Q6H PRN PRN Reason: heartburn Last Admin: 04/05/23 05:35 Dose: 750 mg Documented By: COLETTE Clonazepam (Clonazepam 1 Mg Tablet) 1 mg PO BID PRN PRN Reason: anxiety/restlessness Last Admin: 04/05/23 21:32 Dose: 1 mg Documented By: COLETTE Escitalopram Oxalate (Escitalopram Oxalate 20 Mg Tablet) 20 mg PO DAILY [facility] Last Admin: 04/08/23 09:36 Dose: 20 mg Documented By: CHIQUITA Guaifenesin (Guaifenesin La 600 Mg Tab.Er.12h) 1,200 mg PO BID [facility] Last Admin: 04/08/23 09:36 Dose: 1,200 mg Documented By: CHIQUITA Azithromycin 500 mg/ Sodium (Chloride) 250 mls @ 125 mls/hr IV 2200 [facility] Last Infusion: 04/08/23 00:34 Dose: 0 mls/hr Documented By: MARILOU Levothyroxine Sodium (Levothyroxine Sodium 50 Mcg Tablet) 50 mcg PO DAILY@0630 [facility] Last Admin: 04/08/23 05:46 Dose: 50 mcg Documented By: MARILOU Melatonin (Melatonin 3 Mg Tablet) 6 mg PO BEDTIME PRN PRN Reason: Insomnia Ondansetron HCl (Ondansetron Hcl 4 Mg/2 Ml Vial) 4 mg IVPUSH Q8H PRN PRN Reason: Nausea and Vomiting Last Admin: 04/08/23 09:32 Dose: 4 mg Documented By: CHIQUITA Prednisone (Prednisone 20 Mg Tablet) 40 mg PO DAILY [facility] Quetiapine Fumarate (Quetiapine Fumarate 200 Mg Tablet) 200 mg PO BID [facility] Last Admin: 04/08/23 09:36 Dose: 200 mg Documented By: CHIQUITA Rivaroxaban (Rivaroxaban 15 Mg Tablet) 15 mg PO DAILY [facility] Last Admin: 04/08/23 12:07 Dose: 15 mg Documented By: CHIQUITA Sodium Chloride (0.9 % Sodium Chloride Flush 3 Ml Syringe) 3 ml IVFLUSH QSHIFT [facility] Last Admin: 04/08/23 09:36 Dose: 3 ml Documented By: CHIQUITA Tramadol HCl (Tramadol Hcl 50 Mg Tablet) 25 mg PO Q6H PRN PRN Reason: Pain, Moderate(Pain Scale 4-6) Last Admin: 04/08/23 03:35 Dose: 25 mg Documented By: MARILOU Labs 04/04/23 16:46 04/08/23 11:54 Labs: Laboratory Results - last 24 hr 04/03/23 04/08/23 04/08/23 13:01 11:54 11:54 Anion Gap 12 Estim Creat Clear Calc 65.9 Estimated GFR 57 Random Glucose 97 Calcium 7.7 L D B-Natriuretic Peptide 44 Albumin 3.3 L MILDRED Screen NEGATIVE MILDRED Titer TNP MLIDRED Titer 2 TNP MILDRED Titer 3 TNP MILDRED Pattern TNP MILDRED Pattern 2 TNP MILDRED Pattern 3 TNP Assessment and Plan (1) Asthma exacerbation: Status: Acute (2) Acute respiratory failure with hypoxia: Status: Acute (3) CKD (chronic kidney disease) stage 3, GFR 30-59 ml/min: Status: Acute Plan 67-year-old male with pertinent history of HIV on Biktarvy, mood disorder, tobacco use disorder who presents to the emergency department for evaluation of dyspnea. ? Acute? hypoxic respiratory failure secondary to acute exacerbation of obstructive lung disease.? slowly improving with less shortness of breath and cough ? ? ?CTA chest showed no PE , but showed moderate emphysematous disease, chest x-ray unremarkable KUB showed no acute abnormality or obstruction. cxr repeat on 04/06: ? small pleural effusions. [id number] ? ? ? sob seems similar to yesterday ? ? ? continueDuoNeb updraft q.4 hours while awake, , prednisone,continue azithromycin(started 03/30) and cough medication,will wean O2 as tolerated, incentive spirometry, outpatient pulmonology follow-up for PFTs,oob. ?? ? pulm eval-continue above management ,if does not improve may need bronchiscopy for further eval for PCP, also added LDH levels. pulm follow up ?? Anion Gap? metabolic acidosis likely due to lactic acidosis, stable chronic kidney disease stage 3, stable blood sugars , no diarrhea, ABG showed stable CO2, drug toxicology negative ? ? ? gap closed bicarb normalized. ? lactic acidosis likely due Biktarvy? as per Nephrology,? question exacerbated by updraft treatment and dehydration, lactic acidosis improved DC IV fluid. ?HIV.?? hold Biktarvy since cause lactic acidosis, CD4 count absolute count is 272 low, CD 8 count 179, recommend follow-up at [facility] for alternate medication ?Tobacco use disorder.?? declined nicotine patch, gradually weaning, smoke 4 cigarettes a day, counseling done. ?Mood disorder.? Continue home mood stabilizers ? Chronic kidney disease stage 3.? Creatinine at baseline. ? 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 hypothyroidism continue Synthroid DVT prophylaxis: on Xarelto Full code ?inpatient ongoing? hospitalization need:? acute respiratory failure due to COPD exacerbation requiring IV steroids IV antibiotics and may need bronchoscopy if does not improve. Time Spent With Patient Time: Total time managing care of this patient today ____ minutes. Quality Stroke Does the patient have a stroke diagnosis?: No VTE Prior VTE?: No VTE Risk Level:: Medical - moderate - high VTE Device Contraindication: Treatment Not Indicated VTE Drug Contraindication: N/A - Med Ordered
[2023-04-08] MEDS: Furosemide 40 MG/4 ML VIAL IVPUSH (13:11)
--- NOTE | 2023-04-08 15:11 | MHC.CM.PN ---
PER MD ROUNDS, PT NOT YET READY TO DC STILL REQUIRING IV STEROIDS AND ABX AND MAY NEED A BRONCHOSCOPY DCP REMAINS HOME WITH NO SERVICES VIA PRIVATE TRANSPORT
[2023-04-08 15:22] VITALS: BP 135/74; PULSE 94; RESP 22; TEMP 36.2; O2SAT 93
[2023-04-08] MEDS: Nystatin Oral Susp 500,000 UNIT/5 ML ORAL.SUSP 500000 UNIT PO ×2 (18:04→20:35)
[2023-04-08 20:00] VITALS: BP 155/80; PULSE 92; RESP 20; TEMP 36; O2SAT 93
[2023-04-08] MEDS: Azithromycin 500 MG in 0.9 % Sodium Chloride 250 ML 125 MG IV (21:26)
[2023-04-08] MEDS: Calcium Carbonate 750 MG TAB.CHEW PO (23:15)
[2023-04-09 04:00] VITALS: BP 126/64; PULSE 86; RESP 18; TEMP 36.1; O2SAT 97
[2023-04-09] MEDS: Levothyroxine Sodium 50 MCG TABLET PO (05:41)
[2023-04-09 07:02] VITALS: BP 144/87; PULSE 88; RESP 20; TEMP 36.6; O2SAT 95
[2023-04-09] MEDS: Rivaroxaban 15 MG TABLET PO (08:21)
[2023-04-09] MEDS: Nystatin Oral Susp 500,000 UNIT/5 ML ORAL.SUSP 500000 UNIT PO ×4 (08:21→20:26)
[2023-04-09] MEDS: Escitalopram Oxalate 20 MG TABLET PO (08:21)
[2023-04-09] MEDS: guaiFENesin LA 600 MG TAB.ER.12H 1200 MG PO ×2 (08:21→20:26)
[2023-04-09] MEDS: Furosemide 40 MG/4 ML VIAL IVPUSH (08:22)
[2023-04-09] MEDS: QUEtiapine Fumarate 200 MG TABLET PO ×2 (08:22→20:26)
[2023-04-09] MEDS: predniSONE 20 MG TABLET 40 MG PO (08:22)
[2023-04-09] MEDS: Atorvastatin Calcium 40 MG TABLET PO (08:22)
[2023-04-09] MEDS: buPROPion HCl XL 300 MG TAB.ER.24H PO (08:22)
[2023-04-09] MEDS: 0.9 % Sodium Chloride Flush 3 ML SYRINGE IVFLUSH ×3 (08:23→23:27)
[2023-04-09] MEDS: traMADoL HCL 50 MG TABLET 25 MG PO (08:27)
[2023-04-09 08:41] LABS: Anion Gap 12 (12-20); Blood Urea Nitrogen 40 mg/dL (9-16); Calcium 7.8 mg/dL (8.4-10.2); Carbon Dioxide 28 mmol/L (22-29); Chloride 105 mmol/L (96-108); Creatinine Clr Calc Pharmacy 58.5; Estimated Glomerular Filt Rate 50; Glucose Random 78 mg/dL (60-115); Sodium 141 mmol/L (135-145)
[2023-04-09] MEDS: traMADoL HCL 50 MG TABLET PO ×3 (10:26→23:33)
[2023-04-09 10:41] VITALS: PULSE 96; RESP 22; O2SAT 94
--- NOTE | 2023-04-09 11:04 | HO.PM.IMPN ---
Subjective Subjective Date of Service: 04/09/23 Interval History: he's feeling better, no sob, voiding alot Physical Exam Vital Signs: Vital Signs: Last Vital Signs Temp 97.9 F 04/09/23 07:02 Pulse 96 04/09/23 10:41 Resp 22 H 04/09/23 10:41 BP 144/87 H 04/09/23 07:02 Pulse Ox 94 04/09/23 10:41 O2 Del Method Nasal Cannula 04/09/23 10:41 O2 Flow Rate 2 04/09/23 10:41 BMI result Body Mass Index 30.9 Const: Other: General: AO X 3, no acute distress Resp: CTA bilateral CVS: S1,S2,RRR GI: +BS, NT, no distention Skin: No rash Neuro: motor grossly intact Psych: appropriate affect Objective Data Active Medications Acetaminophen (Acetaminophen 325 Mg Tablet) 650 mg PO Q6H PRN PRN Reason: Pain, Mild (Pain Scale 1-3) Last Admin: 04/04/23 05:40 Dose: 650 mg Documented By: BELLO Atorvastatin Calcium (Atorvastatin Calcium 40 Mg Tablet) 40 mg PO DAILY [facility] Last Admin: 04/09/23 08:22 Dose: 40 mg Documented By: FISH Bupropion HCl (Bupropion Hcl Xl 300 Mg Tab.Er.24h) 300 mg PO DAILY [facility] Last Admin: 04/09/23 08:22 Dose: 300 mg Documented By: FISH Calcium Carbonate (Calcium Carbonate 750 Mg Tab.Chew) 750 mg PO Q6H PRN PRN Reason: heartburn Last Admin: 04/08/23 23:15 Dose: 750 mg Documented By: LUH Clonazepam (Clonazepam 1 Mg Tablet) 1 mg PO BID PRN PRN Reason: anxiety/restlessness Last Admin: 04/05/23 21:32 Dose: 1 mg Documented By: COLETTE Escitalopram Oxalate (Escitalopram Oxalate 20 Mg Tablet) 20 mg PO DAILY [facility] Last Admin: 04/09/23 08:21 Dose: 20 mg Documented By: FISH Guaifenesin (Guaifenesin La 600 Mg Tab.Er.12h) 1,200 mg PO BID [facility] Last Admin: 04/09/23 08:21 Dose: 1,200 mg Documented By: FISH Azithromycin 500 mg/ Sodium (Chloride) 250 mls @ 125 mls/hr IV 2200 [facility] Last Infusion: 04/08/23 23:28 Dose: 0 mls/hr Documented By: LUH Levothyroxine Sodium (Levothyroxine Sodium 50 Mcg Tablet) 50 mcg PO DAILY@0630 [facility] Last Admin: 04/09/23 05:41 Dose: 50 mcg Documented By: LUH Melatonin (Melatonin 3 Mg Tablet) 6 mg PO BEDTIME PRN PRN Reason: Insomnia Nystatin (Nystatin Oral Susp 500,000 Unit/5 Ml Oral.Susp) 500,000 unit PO QID [facility]; Protocol Last Admin: 04/09/23 08:21 Dose: 500,000 unit Documented By: FISH Ondansetron HCl (Ondansetron Hcl 4 Mg/2 Ml Vial) 4 mg IVPUSH Q8H PRN PRN Reason: Nausea and Vomiting Last Admin: 04/08/23 09:32 Dose: 4 mg Documented By: CHIQUITA Prednisone (Prednisone 20 Mg Tablet) 40 mg PO DAILY [facility] Last Admin: 04/09/23 08:22 Dose: 40 mg Documented By: FISH Quetiapine Fumarate (Quetiapine Fumarate 200 Mg Tablet) 200 mg PO BID [facility] Last Admin: 04/09/23 08:22 Dose: 200 mg Documented By: FISH Rivaroxaban (Rivaroxaban 15 Mg Tablet) 15 mg PO DAILY [facility] Last Admin: 04/09/23 08:21 Dose: 15 mg Documented By: FISH Sodium Chloride (0.9 % Sodium Chloride Flush 3 Ml Syringe) 3 ml IVFLUSH QSHIFT [facility] Last Admin: 04/09/23 08:23 Dose: 3 ml Documented By: FISH Tramadol HCl (Tramadol Hcl 50 Mg Tablet) 50 mg PO Q6H PRN PRN Reason: Pain, Moderate(Pain Scale 4-6) Last Admin: 04/09/23 10:26 Dose: 50 mg Documented By: FISH Labs 04/04/23 16:46 04/09/23 08:13 Labs: Laboratory Results - last 24 hr 04/03/23 04/08/23 04/08/23 13:01 11:54 11:54 Anion Gap 12 Estim Creat Clear Calc 65.9 Estimated GFR 57 Random Glucose 97 Calcium 7.7 L D Lactate Dehydrogenase 325 H B-Natriuretic Peptide 44 Albumin 3.3 L MILDRED Titer TNP MILDRED Titer 2 TNP MILDRED Titer 3 TNP MILDRED Pattern TNP MILDRED Pattern 2 TNP MILDRED Pattern 3 TNP 04/09/23 08:13 Anion Gap 12 Estim Creat Clear Calc 58.5 Estimated GFR 50 Random Glucose 78 Calcium 7.8 L Lactate Dehydrogenase B-Natriuretic Peptide Albumin MILDRED Titer MILDRED Titer 2 MILDRED Titer 3 MILDRED Pattern MILDRED Pattern 2 MILDRED Pattern 3 Assessment and Plan (1) Asthma exacerbation: Status: Acute (2) Acute respiratory failure with hypoxia: Status: Acute (3) CKD (chronic kidney disease) stage 3, GFR 30-59 ml/min: Status: Acute Plan 67-year-old male with pertinent history of HIV on Biktarvy, mood disorder, tobacco use disorder who presents to the emergency department for evaluation of dyspnea. Acute? hypoxic respiratory failure secondary to acute exacerbation of obstructive lung disease and hear failure copd continue bronchodilators, prednisone. Pulmonology following Chronic diastolic heart failure-continue IV Lasix and monitor I/O ?Anion Gap? metabolic acidosis likely due to lactic acidosis--resolved ? lactic acidosis likely due Biktarvy? as per Nephrology,? question exacerbated by updraft treatment and dehydration, lactic acidosis improved ?HIV.?? hold Biktarvy since cause lactic acidosis, CD4 count absolute count is 272 low, CD 8 count 179, recommend follow-up at [facility] Clinic for alternate medication ?Tobacco use disorder.?? declined nicotine patch, gradually weaning, smoke 4 cigarettes a day, counseling done. ?Mood disorder.? Continue home mood stabilizers ? Chronic kidney disease stage 3.? Creatinine at baseline. ? 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 hypothyroidism continue Synthroid DVT prophylaxis: on Xarelto Full code need for inpt: heart failure being treated with iv lasix Time Spent With Patient Time: Total time managing care of this patient today ____ minutes. Quality Stroke Does the patient have a stroke diagnosis?: No VTE Prior VTE?: No VTE Risk Level:: Medical - moderate - high VTE Device Contraindication: Treatment Not Indicated VTE Drug Contraindication: N/A - Med Ordered
[2023-04-09] MEDS: clonazePAM 1 MG TABLET PO (13:29)
[2023-04-09 13:36] VITALS: PULSE 90; RESP 22; O2SAT 94
[2023-04-09 15:36] VITALS: BP 137/72; PULSE 92; RESP 20; TEMP 36.2; O2SAT 94
[2023-04-09 19:37] VITALS: BP 143/76; PULSE 87; RESP 20; TEMP 36.1; O2SAT 97
[2023-04-09] MEDS: Azithromycin 500 MG in 0.9 % Sodium Chloride 250 ML 125 MG IV (21:22)
[2023-04-09] MEDS: Melatonin 3 MG TABLET 6 MG PO (23:33)
[2023-04-10 03:21] VITALS: BP 128/63; PULSE 91; RESP 14; TEMP 36.2; O2SAT 94
[2023-04-10] MEDS: Levothyroxine Sodium 50 MCG TABLET PO (05:55)
[2023-04-10 07:13] VITALS: BP 127/77; PULSE 86; RESP 20; TEMP 36.8; O2SAT 92
[2023-04-10] MEDS: QUEtiapine Fumarate 200 MG TABLET PO ×2 (08:46→21:32)
[2023-04-10] MEDS: guaiFENesin LA 600 MG TAB.ER.12H 1200 MG PO ×2 (08:46→21:32)
[2023-04-10] MEDS: Escitalopram Oxalate 20 MG TABLET PO (08:46)
[2023-04-10] MEDS: Atorvastatin Calcium 40 MG TABLET PO (08:47)
[2023-04-10] MEDS: buPROPion HCl XL 300 MG TAB.ER.24H PO (08:47)
[2023-04-10] MEDS: predniSONE 20 MG TABLET 40 MG PO (08:47)
[2023-04-10] MEDS: Nystatin Oral Susp 500,000 UNIT/5 ML ORAL.SUSP 500000 UNIT PO ×4 (08:47→21:34)
[2023-04-10] MEDS: 0.9 % Sodium Chloride Flush 3 ML SYRINGE IVFLUSH ×2 (08:48→16:01)
--- NOTE | 2023-04-10 08:56 | P.PNIM_ITS ---
Subjective Subjective Date of Service: 04/10/23 Interval History: Feeling better, Off O2 and sating 96% and above Physical Exam Vital Signs: Vital Signs: Last Vital Signs Temp 98.3 F 04/10/23 07:13 Pulse 86 04/10/23 07:13 Resp 20 04/10/23 07:13 BP 127/77 04/10/23 07:13 Pulse Ox 92 04/10/23 07:13 O2 Del Method Nasal Cannula 04/10/23 07:13 O2 Flow Rate 2 04/10/23 07:13 BMI result Body Mass Index 30.9 Const: Other: General: AO X 3, no acute distress Resp: CTA bilateral CVS: S1,S2,RRR GI: +BS, NT, no distention Skin: No rash Neuro: motor grossly intact Psych: appropriate affect Objective Data Active Medications Acetaminophen (Acetaminophen 325 Mg Tablet) 650 mg PO Q6H PRN PRN Reason: Pain, Mild (Pain Scale 1-3) Last Admin: 04/04/23 05:40 Dose: 650 mg Documented By: BELLO Atorvastatin Calcium (Atorvastatin Calcium 40 Mg Tablet) 40 mg PO DAILY [facility] Last Admin: 04/09/23 08:22 Dose: 40 mg Documented By: FISH Bupropion HCl (Bupropion Hcl Xl 300 Mg Tab.Er.24h) 300 mg PO DAILY [facility] Last Admin: 04/09/23 08:22 Dose: 300 mg Documented By: FISH Calcium Carbonate (Calcium Carbonate 750 Mg Tab.Chew) 750 mg PO Q6H PRN PRN Reason: heartburn Last Admin: 04/08/23 23:15 Dose: 750 mg Documented By: LUH Clonazepam (Clonazepam 1 Mg Tablet) 1 mg PO BID PRN PRN Reason: anxiety/restlessness Last Admin: 04/09/23 13:29 Dose: 1 mg Documented By: FISH Escitalopram Oxalate (Escitalopram Oxalate 20 Mg Tablet) 20 mg PO DAILY [facility] Last Admin: 04/09/23 08:21 Dose: 20 mg Documented By: FISH Guaifenesin (Guaifenesin La 600 Mg Tab.Er.12h) 1,200 mg PO BID [facility] Last Admin: 04/09/23 20:26 Dose: 1,200 mg Documented By: DIOR Levothyroxine Sodium (Levothyroxine Sodium 50 Mcg Tablet) 50 mcg PO DAILY@0630 [facility] Last Admin: 04/10/23 05:55 Dose: 50 mcg Documented By: MOISES Melatonin (Melatonin 3 Mg Tablet) 6 mg PO BEDTIME PRN PRN Reason: Insomnia Last Admin: 04/09/23 23:33 Dose: 6 mg Documented By: MOISES Nystatin (Nystatin Oral Susp 500,000 Unit/5 Ml Oral.Susp) 500,000 unit PO QID [facility]; Protocol Last Admin: 04/09/23 20:26 Dose: 500,000 unit Documented By: DIOR Ondansetron HCl (Ondansetron Hcl 4 Mg/2 Ml Vial) 4 mg IVPUSH Q8H PRN PRN Reason: Nausea and Vomiting Last Admin: 04/08/23 09:32 Dose: 4 mg Documented By: CHIQUITA Prednisone (Prednisone 20 Mg Tablet) 40 mg PO DAILY [facility] Last Admin: 04/09/23 08:22 Dose: 40 mg Documented By: FISH Quetiapine Fumarate (Quetiapine Fumarate 200 Mg Tablet) 200 mg PO BID [facility] Last Admin: 04/09/23 20:26 Dose: 200 mg Documented By: DIOR Rivaroxaban (Rivaroxaban 15 Mg Tablet) 15 mg PO DAILY [facility] Last Admin: 04/09/23 08:21 Dose: 15 mg Documented By: FISH Sodium Chloride (0.9 % Sodium Chloride Flush 3 Ml Syringe) 3 ml IVFLUSH QSHIFT [facility] Last Admin: 04/09/23 23:27 Dose: 3 ml Documented By: MOISES Tramadol HCl (Tramadol Hcl 50 Mg Tablet) 50 mg PO Q6H PRN PRN Reason: Pain, Moderate(Pain Scale 4-6) Last Admin: 04/09/23 23:33 Dose: 50 mg Documented By: MOISES Labs 04/04/23 16:46 04/09/23 08:13 Assessment and Plan (1) Pneumonia: Status: Acute (2) Asthma exacerbation: Status: Acute (3) Acute respiratory failure with hypoxia: Status: Acute Plan 67-year-old male with pertinent history of HIV on Biktarvy, mood disorder, tobacco use disorder who presents to the emergency department for evaluation of dyspnea. Acute? hypoxic respiratory failure secondary to acute exacerbation of obstructive lung disease and hear failure copd continue bronchodilators, prednisone. Pulmonology following Chronic diastolic heart failure--has had good effect with iv Lasix ?Anion Gap? metabolic acidosis likely due to lactic acidosis--resolved ? lactic acidosis likely due Biktarvy? as per Nephrology,? question exacerbated by updraft treatment and dehydration, lactic acidosis improved ?HIV.?? hold Biktarvy since cause lactic acidosis, CD4 count absolute count is 272 low, CD 8 count 179, recommend follow-up at [facility] Clinic for alternate medication ?Tobacco use disorder.?? declined nicotine patch, gradually weaning, smoke 4 cigarettes a day, counseling done. ?Mood disorder.? Continue home mood stabilizers ? Chronic kidney disease stage 3.? Creatinine at baseline. ? 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 hypothyroidism continue Synthroid DVT prophylaxis: on Xarelto Full code need for inpt: heart failure being treated with iv lasix Time Spent With Patient Time: Total time managing care of this patient today ____ minutes. Quality Stroke Does the patient have a stroke diagnosis?: No VTE Prior VTE?: No VTE Risk Level:: Medical - moderate - high VTE Device Contraindication: Treatment Not Indicated VTE Drug Contraindication: N/A - Med Ordered
[2023-04-10] MEDS: traMADoL HCL 50 MG TABLET PO ×3 (08:58→21:29)
[2023-04-10] MEDS: clonazePAM 1 MG TABLET PO (08:59)
[2023-04-10 09:02] VITALS: O2SAT 88
[2023-04-10 09:03] VITALS: O2SAT 94
[2023-04-10] MEDS: Rivaroxaban 15 MG TABLET PO (09:49)
--- NOTE | 2023-04-10 13:00 | MHC.CM.PN ---
PER ROUNDS, PLAN IS TO TITRATE OFF O2 AND DISCHARGE HOME Saturday04/11/23
[2023-04-10 15:18] VITALS: BP 128/58; PULSE 104; RESP 20; TEMP 36.7; O2SAT 95
[2023-04-10 19:39] VITALS: BP 147/67; PULSE 89; RESP 16; TEMP 36.5; O2SAT 94
[2023-04-10] MEDS: Calcium Carbonate 750 MG TAB.CHEW PO (21:24)
--- NOTE | 2023-04-10 21:41 | PC.NURSE ---
Tramadol given earlier per Dr. Gutiérrez
[2023-04-10] MEDS: Melatonin 3 MG TABLET 6 MG PO (21:42)
--- NOTE | 2023-04-10 22:04 | PC.NURSE ---
Patient c/o burning with urination,Dr Gutiérrez notified
[2023-04-11 00:17] LABS: Appearance Urine Clear; Color Urine Yellow; Glucose Urine UA Negative (Negative); Leukocyte Esterase Urine Negative (Negative); Nitrite Urine Negative (Negative); PH 6.5 (5.0-9.0); UMIC TRIGGER UACC YES; Urine Blood Large (3+) (Negative); Urine Ketones Negative (Negative); Urine Protein Negative (Neg-Trace)
[2023-04-11 00:19] LABS: Bacteria Urine None Seen (None Seen); Hyaline Casts Urine 0-2 /LPF (0-2); RBC Urine >20 /HPF (0-2); Squamous Epithelial Cell Urine 0-2 /HPF (0-2); WBC Urine 0-5 /HPF (0-5)
[2023-04-11 03:13] VITALS: BP 130/71; PULSE 108; RESP 18; TEMP 36.3; O2SAT 95
[2023-04-11] MEDS: Levothyroxine Sodium 50 MCG TABLET PO (05:54)
[2023-04-11 07:27] VITALS: BP 134/70; PULSE 79; RESP 18; TEMP 36.2; O2SAT 93
[2023-04-11] MEDS: Escitalopram Oxalate 20 MG TABLET PO (07:52)
[2023-04-11] MEDS: guaiFENesin LA 600 MG TAB.ER.12H 1200 MG PO ×2 (07:52→20:02)
[2023-04-11] MEDS: buPROPion HCl XL 300 MG TAB.ER.24H PO (07:53)
[2023-04-11] MEDS: Atorvastatin Calcium 40 MG TABLET PO (07:53)
[2023-04-11] MEDS: predniSONE 20 MG TABLET 40 MG PO (07:53)
[2023-04-11] MEDS: traMADoL HCL 50 MG TABLET PO ×2 (07:53→12:51)
[2023-04-11] MEDS: Rivaroxaban 15 MG TABLET PO (07:54)
[2023-04-11] MEDS: QUEtiapine Fumarate 200 MG TABLET PO ×2 (07:54→20:02)
[2023-04-11] MEDS: Nystatin Oral Susp 500,000 UNIT/5 ML ORAL.SUSP 500000 UNIT PO ×4 (07:54→20:02)
[2023-04-11 08:08] VITALS: BP 134/70; PULSE 79; O2SAT 93
[2023-04-11 08:14] VITALS: PULSE 100; PULSE 108; O2SAT 94; O2SAT 95
--- NOTE | 2023-04-11 08:16 | PC.RT ---
pt walked with PT sating 97, pt proceeded to walk with Resp for a total of 6 minutes sating 95% maintaining a HR of 108 BPM. pt does not qualify for O2 at this time. no resp distress noted during the O2 eval.
[2023-04-11 08:58] LABS: Hematocrit 33.6 % (42.0-52.0); Hemoglobin 11.2 g/dl (14.0-18.0); Mean Corpuscular HGB Conc 33.3 g/dl (31.0-36.0); Mean Corpuscular Volume 99.1 fL (80.0-98.0); Platelet Count 135 X10*3/uL (160-400); Red Blood Count 3.39 X10*6/uL (4.60-5.80); Red Cell Distribution Width 14.2 % (11.0-16.0); White Blood Count 16.7 X10*3/uL (4.8-10.8)
--- NOTE | 2023-04-11 09:35 | P.PNIM_ITS ---
Subjective Subjective Date of Service: 04/11/23 Interval History: continue to make some progress Physical Exam Vital Signs: Vital Signs: Last Vital Signs Temp 97.1 F 04/11/23 07:27 Pulse 79 04/11/23 08:08 Resp 18 04/11/23 07:27 BP 134/70 04/11/23 08:08 Pulse Ox 93 04/11/23 08:08 O2 Del Method Nasal Cannula 04/11/23 07:27 O2 Flow Rate 1 04/11/23 07:27 BMI result Body Mass Index 30.9 Const: Other: General: AO X 3, no acute distress Resp: CTA bilateral CVS: S1,S2,RRR GI: +BS, NT, no distention Skin: No rash, large bruse on right flank unchanged Neuro: motor grossly intact Psych: appropriate affect Objective Data Active Medications Acetaminophen (Acetaminophen 325 Mg Tablet) 650 mg PO Q6H PRN PRN Reason: Pain, Mild (Pain Scale 1-3) Last Admin: 04/04/23 05:40 Dose: 650 mg Documented By: BELLO Atorvastatin Calcium (Atorvastatin Calcium 40 Mg Tablet) 40 mg PO DAILY [facility] Last Admin: 04/11/23 07:53 Dose: 40 mg Documented By: AZUCENA Bupropion HCl (Bupropion Hcl Xl 300 Mg Tab.Er.24h) 300 mg PO DAILY [facility] Last Admin: 04/11/23 07:53 Dose: 300 mg Documented By: AZUCENA Calcium Carbonate (Calcium Carbonate 750 Mg Tab.Chew) 750 mg PO Q6H PRN PRN Reason: heartburn Last Admin: 04/10/23 21:24 Dose: 750 mg Documented By: DIOR Escitalopram Oxalate (Escitalopram Oxalate 20 Mg Tablet) 20 mg PO DAILY [facility] Last Admin: 04/11/23 07:52 Dose: 20 mg Documented By: AZUCENA Guaifenesin (Guaifenesin La 600 Mg Tab.Er.12h) 1,200 mg PO BID [facility] Last Admin: 04/11/23 07:52 Dose: 1,200 mg Documented By: AZUCENA Levothyroxine Sodium (Levothyroxine Sodium 50 Mcg Tablet) 50 mcg PO DAILY@0630 [facility] Last Admin: 04/11/23 05:54 Dose: 50 mcg Documented By: ANDRZEJ Melatonin (Melatonin 3 Mg Tablet) 6 mg PO BEDTIME PRN PRN Reason: Insomnia Last Admin: 04/10/23 21:42 Dose: 6 mg Documented By: DIOR Nystatin (Nystatin Oral Susp 500,000 Unit/5 Ml Oral.Susp) 500,000 unit PO QID [facility]; Protocol Last Admin: 04/11/23 07:54 Dose: 500,000 unit Documented By: AZUCENA Ondansetron HCl (Ondansetron Hcl 4 Mg/2 Ml Vial) 4 mg IVPUSH Q8H PRN PRN Reason: Nausea and Vomiting Last Admin: 04/08/23 09:32 Dose: 4 mg Documented By: CHIQUITA Prednisone (Prednisone 20 Mg Tablet) 40 mg PO DAILY [facility] Last Admin: 04/11/23 07:53 Dose: 40 mg Documented By: AZUCENA Quetiapine Fumarate (Quetiapine Fumarate 200 Mg Tablet) 200 mg PO BID [facility] Last Admin: 04/11/23 07:54 Dose: 200 mg Documented By: AZUCENA Rivaroxaban (Rivaroxaban 15 Mg Tablet) 15 mg PO DAILY [facility] Last Admin: 04/11/23 07:54 Dose: 15 mg Documented By: AZUCENA Sodium Chloride (0.9 % Sodium Chloride Flush 3 Ml Syringe) [facility] Last Admin: 04/11/23 00:51 Dose: Not Given Documented By: ANDRZEJ Non-Admin Reason: Previously Administered Tramadol HCl (Tramadol Hcl 50 Mg Tablet) 50 mg PO Q6H PRN PRN Reason: Pain, Moderate(Pain Scale 4-6) Last Admin: 04/11/23 07:53 Dose: 50 mg Documented By: AZUCENA Labs 04/11/23 08:45 04/09/23 08:13 Labs: Laboratory Results - last 24 hr 04/11/23 04/11/23 00:09 08:45 MCV 99.1 H MCH 33.0 MCHC 33.3 RDW 14.2 Plt Count 135 L MPV 10.0 Absolute Nucleated RBC 0.000 Nucleated RBC % (auto) 0.0 Urine Color Yellow Urine Appearance Clear Urine pH 6.5 Ur Specific [place] 1.020 Urine Protein Negative Urine Glucose (UA) Negative Urine Ketones Negative Urine Blood Large (3+) H Urine Nitrite Negative Ur Leukocyte Esterase Negative Urine RBC >20 H Urine WBC 0-5 Ur Squamous Epith Cells 0-2 Urine Bacteria None Seen Hyaline Casts 0-2 Assessment and Plan (1) Pneumonia: Status: Acute (2) Asthma exacerbation: Status: Acute (3) Acute respiratory failure with hypoxia: Status: Acute Plan 67-year-old male with pertinent history of HIV on Biktarvy, mood disorder, tobacco use disorder who presents to the emergency department for evaluation of dyspnea. Acute? hypoxic respiratory failure secondary to acute exacerbation of obstructive lung disease and hear failure copd continue bronchodilators, prednisone. Pulmonology following Chronic diastolic heart failure--has had good effect with iv Lasix ?Anion Gap? metabolic acidosis likely due to lactic acidosis--resolved ? lactic acidosis likely due Biktarvy? as per Nephrology,? question exacerbated by updraft treatment and dehydration, lactic acidosis improved ?HIV.?? hold Biktarvy since cause lactic acidosis, CD4 count absolute count is 272 low, CD 8 count 179, recommend follow-up at [facility] Clinic for alternate medication ?Tobacco use disorder.?? declined nicotine patch, gradually weaning, smoke 4 c igarettes a day, counseling done. ?Mood disorder.? Continue home mood stabilizers ? Chronic kidney disease stage 3.? Creatinine at baseline. bruse on righ flank--not affected H/H, continue xarelto ? 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 hypothyroidism continue Synthroid DVT prophylaxis: on Xarelto Full code need for inpt: heart failure being treated with iv lasix PT eval, home O2 eval Time Spent With Patient Time: Total time managing care of this patient today ____ minutes. Quality Stroke Does the patient have a stroke diagnosis?: No VTE Prior VTE?: No VTE Risk Level:: Medical - moderate - high VTE Device Contraindication: Treatment Not Indicated VTE Drug Contraindication: N/A - Med Ordered
[2023-04-11] MEDS: 0.9 % Sodium Chloride Flush 3 ML SYRINGE IVFLUSH ×3 (10:25→23:33)
[2023-04-11 15:27] VITALS: BP 144/76; PULSE 99; RESP 20; TEMP 36.1; O2SAT 93
[2023-04-11] MEDS: Calcium Carbonate 750 MG TAB.CHEW PO (16:03)
--- NOTE | 2023-04-11 16:27 | PC.NURSE ---
Addendum entered by Ana Escudero RN 04/11/23 17:11: Patient refused to use Tylenol for pain Original Note: Patient complaining of pain in the bruised area right flank/right lower abdomen,Ultram not due,bruise increased in size compare to yesterday,Dr. Yang notified ,questioned need for X-ray to that area
[2023-04-11] MEDS: oxyCODONE HCl Immed Release 5 MG TABLET PO ×2 (17:42→23:35)
[2023-04-11] MEDS: clonazePAM 1 MG TABLET PO (17:42)
[2023-04-11 19:44] VITALS: BP 138/68; PULSE 83; RESP 18; TEMP 36.3; O2SAT 92
--- NOTE | 2023-04-11 20:44 | PC.NURSE ---
Addendum entered by Ana Escudero RN 04/11/23 21:39: patient was str cath ,tolerated it very well,DTV #1 at 0330 Original Note: patient co burning with urination and urinating very small amts,bladder scan shows 752 ml ,patient also reports he has eurolift in place which was done about a year ago,Dr. Gutiérrez notified
[2023-04-12 03:11] VITALS: BP 130/76; PULSE 88; RESP 18; TEMP 36; O2SAT 92
[2023-04-12] MEDS: oxyCODONE HCl Immed Release 5 MG TABLET PO ×3 (05:31→20:37)
[2023-04-12] MEDS: Levothyroxine Sodium 50 MCG TABLET PO (05:31)
[2023-04-12 07:36] VITALS: BP 129/82; PULSE 99; RESP 20; TEMP 37.2; O2SAT 97
[2023-04-12] MEDS: Rivaroxaban 15 MG TABLET PO (08:16)
[2023-04-12] MEDS: predniSONE 20 MG TABLET PO (08:16)
[2023-04-12] MEDS: Escitalopram Oxalate 20 MG TABLET PO (08:16)
[2023-04-12] MEDS: Atorvastatin Calcium 40 MG TABLET PO (08:16)
[2023-04-12] MEDS: guaiFENesin LA 600 MG TAB.ER.12H 1200 MG PO ×2 (08:16→20:38)
[2023-04-12] MEDS: QUEtiapine Fumarate 200 MG TABLET PO ×2 (08:16→20:38)
[2023-04-12] MEDS: buPROPion HCl XL 300 MG TAB.ER.24H PO (08:16)
[2023-04-12] MEDS: Nystatin Oral Susp 500,000 UNIT/5 ML ORAL.SUSP 500000 UNIT PO ×4 (08:17→20:37)
[2023-04-12] MEDS: 0.9 % Sodium Chloride Flush 3 ML SYRINGE IVFLUSH ×3 (08:21→20:37)
--- NOTE | 2023-04-12 08:36 | MHC.CM.PN ---
PT WILL DC HOME TODAY WITH NO SERVICES PT TO ARRANGE TRANSPORT
--- NOTE | 2023-04-12 10:20 | P.PNIM_ITS ---
Subjective Subjective Date of Service: 04/12/23 Interval History: continue to make some progress, now 97 on room air Review of Systems f/u on Physical Exam Vital Signs: Vital Signs: Last Vital Signs Temp 98.9 F 04/12/23 07:36 Pulse 99 04/12/23 07:36 Resp 20 04/12/23 07:36 BP 129/82 04/12/23 07:36 Pulse Ox 97 04/12/23 07:36 O2 Del Method Room Air 04/12/23 07:36 O2 Flow Rate 1 04/11/23 07:27 BMI result Body Mass Index 30.9 Const: Other: General: AO X 3, no acute distress Resp: CTA bilateral CVS: S1,S2,RRR GI: +BS, NT, no distention Skin: No rash, large bruse on right flank unchanged Neuro: motor grossly intact Psych: appropriate affect Objective Data Active Medications Acetaminophen (Acetaminophen 325 Mg Tablet) 650 mg PO Q6H PRN PRN Reason: Pain, Mild (Pain Scale 1-3) Last Admin: 04/04/23 05:40 Dose: 650 mg Documented By: BELLO Atorvastatin Calcium (Atorvastatin Calcium 40 Mg Tablet) 40 mg PO DAILY [facility] Last Admin: 04/12/23 08:16 Dose: 40 mg Documented By: COOKIE Bupropion HCl (Bupropion Hcl Xl 300 Mg Tab.Er.24h) 300 mg PO DAILY [facility] Last Admin: 04/12/23 08:16 Dose: 300 mg Documented By: COOKIE Calcium Carbonate (Calcium Carbonate 750 Mg Tab.Chew) 750 mg PO Q6H PRN PRN Reason: heartburn Last Admin: 04/11/23 16:03 Dose: 750 mg Documented By: DIOR Clonazepam (Clonazepam 1 Mg Tablet) 1 mg PO BID PRN PRN Reason: Anxiety Last Admin: 04/11/23 17:42 Dose: 1 mg Documented By: DIOR Escitalopram Oxalate (Escitalopram Oxalate 20 Mg Tablet) 20 mg PO DAILY [facility] Last Admin: 04/12/23 08:16 Dose: 20 mg Documented By: COOKIE Guaifenesin (Guaifenesin La 600 Mg Tab.Er.12h) 1,200 mg PO BID [facility] Last Admin: 04/12/23 08:16 Dose: 1,200 mg Documented By: COOKIE Fluconazole 100 mg/ IV (Miscellaneous Supplies) 50 mls @ 50 mls/hr IV Q24H [facility] Levothyroxine Sodium (Levothyroxine Sodium 50 Mcg Tablet) 50 mcg PO DAILY@0630 [facility] Last Admin: 04/12/23 05:31 Dose: 50 mcg Documented By: SVITLANA Melatonin (Melatonin 3 Mg Tablet) 6 mg PO BEDTIME PRN PRN Reason: Insomnia Last Admin: 04/10/23 21:42 Dose: 6 mg Documented By: DIOR Nystatin (Nystatin Oral Susp 500,000 Unit/5 Ml Oral.Susp) 500,000 unit PO QID [facility]; Protocol Last Admin: 04/12/23 08:17 Dose: 500,000 unit Documented By: COOKIE Ondansetron HCl (Ondansetron Hcl 4 Mg/2 Ml Vial) 4 mg IVPUSH Q8H PRN PRN Reason: Nausea and Vomiting Last Admin: 04/08/23 09:32 Dose: 4 mg Documented By: CHIQUITA Oxycodone HCl (Oxycodone Hcl Immed Release 5 Mg Tablet) 5 mg PO Q6H PRN PRN Reason: Pain, Severe (Pain Scale 7-10) Last Admin: 04/12/23 05:31 Dose: 5 mg Documented By: SVITLANA Prednisone (Prednisone 20 Mg Tablet) 20 mg PO DAILY [facility] Last Admin: 04/12/23 08:16 Dose: 20 mg Documented By: COOKIE Quetiapine Fumarate (Quetiapine Fumarate 200 Mg Tablet) 200 mg PO BID [facility] Last Admin: 04/12/23 08:16 Dose: 200 mg Documented By: COOKIE Rivaroxaban (Rivaroxaban 15 Mg Tablet) 15 mg PO DAILY [facility] Last Admin: 04/12/23 08:16 Dose: 15 mg Documented By: COOKIE Sodium Chloride (0.9 % Sodium Chloride Flush 3 Ml Syringe) 3 ml IVFLUSH QSHIFT [facility] Last Admin: 04/12/23 08:21 Dose: 3 ml Documented By: COOKIE Labs 04/11/23 08:45 04/09/23 08:13 Assessment and Plan (1) Pneumonia: Status: Acute (2) Asthma exacerbation: Status: Acute (3) Acute respiratory failure with hypoxia: Status: Acute Plan 67-year-old male with pertinent history of HIV on Biktarvy, mood disorder, tobacco use disorder who presents to the emergency department for evaluation of dyspnea. Acute? hypoxic respiratory failure secondary to acute exacerbation of obstructive lung disease and hear failure copd continue bronchodilators, prednisone staci, Pulmonology following Chronic diastolic heart failure--has had good effect with iv lasix, continue with oral lasix 20 mg daily ?Anion Gap? metabolic acidosis likely due to lactic acidosis--resolved ? lactic acidosis likely due Biktarvy? as per Nephrology,? question exacerbated by updraft treatment and dehydration, lactic acidosis improved ?HIV.?? hold Biktarvy since cause lactic acidosis, CD4 count absolute count is 272 low, CD 8 count 179, recommend follow-up at [facility] Clinic for alternate medication ?Tobacco use disorder.?? declined nicotine patch, gradually weaning, smoke 4 cigarettes a day, counseling done. ?Mood disorder.? Continue home mood stabilizers Odynophagia--suspect possible esophageal candidiasis, IV diflucan , gi consult ? Chronic kidney disease stage 3.? Creatinine at baseline. 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 Quality Stroke Does the patient have a stroke diagnosis?: No VTE Prior VTE?: No VTE Risk Level:: Medical - moderate - high VTE Device Contraindication: Treatment Not Indicated VTE Drug Contraindication: N/A - Med Ordered
[2023-04-12] MEDS: Fluconazole in NaCl,Iso-Osm 100 MG in Container,Empty 0 ML 50 MG IV (10:39)
[2023-04-12] MEDS: Furosemide 20 MG TABLET PO (10:39)
[2023-04-12 11:44] LABS: Appearance Urine Clear; Color Urine Yellow; Glucose Urine UA Negative (Negative); Leukocyte Esterase Urine Trace (Negative); Nitrite Urine Negative (Negative); Urine Blood Large (3+) (Negative); Urine Ketones Negative (Negative); Urine Protein Negative (Neg-Trace)
[2023-04-12 11:47] LABS: Bacteria Urine None Seen (None Seen); Hyaline Casts Urine 0-2 /LPF (0-2); RBC Urine >20 /HPF (0-2); Squamous Epithelial Cell Urine 0-2 /HPF (0-2); UACC Culture Trigger YES
[2023-04-12 11:53] LABS: UMIC TRIGGER UACC YES
[2023-04-12] MEDS: Calcium Carbonate 750 MG TAB.CHEW PO (14:46)
--- NOTE | 2023-04-12 14:50 | PM.EVENT ---
Event Note Date of Service: 04/12/23 Event Note: GI note dictated gerd/odynophagia cont diflucan x 14d maalox prn, omeprazole started EGD if no better. Time Spent With Patient Time: Total time managing care of this patient today ____ minutes.
--- NOTE | 2023-04-12 14:50 | PM.UROCN ---
History of Present Illness Consult details Consult date: 04/12/23 Narrative: Consulting complaint urinary retention 67-year-old male Admitted with dyspnea and wheeze Background of smoking but no prior diagnosis of COPD or asthma Past medical history of HIV on Biktarvy with mood disorder Found to have metabolic acidosis with elevated creatinine Nephrology consult suggest Biktarvy as possible aggravating agent. Bladder scan 400 cc No prior prostate medications Suggest doxazosin 4 mg p.o. q.h.s. with PVR review Check PVR post voiding x3 Review of Systems Constitutional: Constitutional: Reports as per HPI and Reports no additional constitutional complaints Cardiovascular: Cardiovascular: Reports as per HPI and Reports no additional cardiovascular complaints Respiratory: Respiratory: Reports as per HPI and Reports no additional respiratory complaints Gastrointestinal: Gastrointestinal: Reports as per HPI and Reports no additional gastrointestinal complaints Genitourinary: Genitourinary: Reports as per HPI Musculoskeletal: Musculoskeletal: Reports no additional musculoskeletal complaints and Reports as per HPI Neurologic: Reports system reviewed and no additional complaints, except as documented and Reports as per HPI PMFSH Past Medical History Medical History HIV (human immunodeficiency virus infection) Mood disorder Tobacco use disorder Social History Social History Household Members: Other Household Members Other:: room mates Housing: Homeless Do you presently have visiting nurse or other home services: No Alcohol intake: never Patient Tobacco Use Status: Refuse Tobacco use screen Smoked in Last 30 Days: Yes Use of substances other than those prescribed or required for medical reasons: No Currently Displaying Signs/Symptoms of Drug Intoxication Withdrawal: No Have you been hit, kicked, punched, or otherwise hurt by someone within the past year? If so, by whom?: No Do you feel safe in your current relationship?: No Current Relationship Is there a partner from a previous relationship who is making you feel unsafe now?: No Are you made to feel afraid or neglected: No [employer] Healthcare Practices: Yarsani Advance Directives: No Advance Directives Information Provided: No Advance Directives on File: No Do you have thoughts of harming others: None Do you have a plan to hurt others: No Plan Recently lost weight without trying: Unsure Eating poorly because of decreased appetite: Yes Nutrition Risks: No Nutritional Risk Poor oral hygiene: No service: No Meds Allergies Allergy/AdvReac Type Severity Reaction Status Date / Time No Known Allergies Allergy Verified 03/31/23 03:30 Active Medications: Current Medications Acetaminophen (Acetaminophen 325 Mg Tablet) 650 mg PO Q6H PRN PRN Reason: Pain, Mild (Pain Scale 1-3) Last Admin: 04/04/23 05:40 Dose: 650 mg Al Hydroxide/Mg Hydroxide (Magnesium Hydrox/Alum Hydrox 30 Ml Oral.Susp) 30 ml PO RQ4H PRN PRN Reason: GI Upset Atorvastatin Calcium (Atorvastatin Calcium 40 Mg Tablet) 40 mg PO DAILY [facility] Last Admin: 04/12/23 08:16 Dose: 40 mg Bupropion HCl (Bupropion Hcl Xl 300 Mg Tab.Er.24h) 300 mg PO DAILY [facility] Last Admin: 04/12/23 08:16 Dose: 300 mg Calcium Carbonate (Calcium Carbonate 750 Mg Tab.Chew) 750 mg PO Q6H PRN PRN Reason: heartburn Last Admin: 04/12/23 14:46 Dose: 750 mg Clonazepam (Clonazepam 1 Mg Tablet) 1 mg PO BID PRN PRN Reason: Anxiety Last Admin: 04/11/23 17:42 Dose: 1 mg Escitalopram Oxalate (Escitalopram Oxalate 20 Mg Tablet) 20 mg PO DAILY [facility] Last Admin: 04/12/23 08:16 Dose: 20 mg Furosemide (Furosemide 20 Mg Tablet) 20 mg PO DAILY [facility]; Protocol Last Admin: 04/12/23 10:39 Dose: 20 mg Guaifenesin (Guaifenesin La 600 Mg Tab.Er.12h) 1,200 mg PO BID [facility] Last Admin: 04/12/23 08:16 Dose: 1,200 mg Fluconazole 100 mg/ IV (Miscellaneous Supplies) 50 mls @ 50 mls/hr IV Q24H [facility] Last Infusion: 04/12/23 11:44 Dose: Infused Levothyroxine Sodium (Levothyroxine Sodium 50 Mcg Tablet) 50 mcg PO DAILY@0630 [facility] Last Admin: 04/12/23 05:31 Dose: 50 mcg Melatonin (Melatonin 3 Mg Tablet) 6 mg PO BEDTIME PRN PRN Reason: Insomnia Last Admin: 04/10/23 21:42 Dose: 6 mg Nystatin (Nystatin Oral Susp 500,000 Unit/5 Ml Oral.Susp) 500,000 unit PO QID [facility]; Protocol Last Admin: 04/12/23 14:46 Dose: 500,000 unit Omeprazole (Omeprazole 40 Mg Capsule.Dr) 40 mg PO DAILY@0630 [facility] Ondansetron HCl (Ondansetron Hcl 4 Mg/2 Ml Vial) 4 mg IVPUSH Q8H PRN PRN Reason: Nausea and Vomiting Last Admin: 04/08/23 09:32 Dose: 4 mg Oxycodone HCl (Oxycodone Hcl Immed Release 5 Mg Tablet) 5 mg PO Q6H PRN PRN Reason: Pain, Severe (Pain Scale 7-10) Last Admin: 04/12/23 05:31 Dose: 5 mg Quetiapine Fumarate (Quetiapine Fumarate 200 Mg Tablet) 200 mg PO BID [facility] Last Admin: 04/12/23 08:16 Dose: 200 mg Rivaroxaban (Rivaroxaban 15 Mg Tablet) 15 mg PO DAILY [facility] Last Admin: 04/12/23 08:16 Dose: 15 mg Sodium Chloride (0.9 % Sodium Chloride Flush 3 Ml Syringe) [facility] Admin: 04/12/23 08:21 Dose: 3 ml Home Medications Medication Instructions Recorded Confirmed Last Taken Type atorvastatin 40 mg tablet 40 mg PO DAILY 03/31/23 03/31/23 Unknown History bictegravir 50 mg-emtricitabine 1 tab PO DAILY 03/31/23 03/31/23 Unknown History 200 mg-tenofovir alafenam 25 mg tablet (Biktarvy) bupropion HCl 300 mg 24 hr tablet, 300 mg PO QAM 03/31/23 03/31/23 Unknown History extended release citalopram 40 mg tablet 40 mg PO DAILY 03/31/23 03/31/23 Unknown History clonazepam 1 mg tablet 1 mg PO BID PRN Anxiety 03/31/23 03/31/23 Unknown History famotidine 20 mg tablet 20 mg PO BID 03/31/23 03/31/23 Unknown History ketoconazole 2 % topical cream appl topical DAILY 03/31/23 Unknown History levothyroxine 50 mcg tablet 50 mcg PO QAM 03/31/23 03/31/23 Unknown History quetiapine 400 mg tablet,extended 400 mg PO BEDTIME 03/31/23 03/31/23 Unknown History release 24 hr rivaroxaban 15 mg tablet (Xarelto) 15 mg PO DAILY 03/31/23 03/31/23 Unknown History zolpidem 12.5 mg tablet,extended 12.5 mg PO BEDTIME PRN Insomnia 03/31/23 03/31/23 Unknown History release,multiphase Physical Exam Vital Signs: Vital Signs: Last Vital Signs Temp 98.9 F 04/12/23 07:36 Pulse 99 04/12/23 07:36 Resp 20 04/12/23 07:36 BP 129/82 04/12/23 07:36 Pulse Ox 97 04/12/23 07:36 O2 Del Method Room Air 04/12/23 07:36 O2 Flow Rate 1 04/11/23 07:27 BMI result Body Mass Index 30.9 Const: General: cooperative, healthy appearing, comfortable and no acute distress Orientation/consciousness: patient oriented x3 HEENT: Face and sinus: Yes normal facial exam Mouth: moist mucous membranes Neck: Neck: Yes normal visual inspection, Yes full ROM and Yes trachea midline Chest: Chest palpation & inspection: normal inspection of the chest Resp: Effort & Inspection: normal respiratory effort, able to speak in complete sentences and no respiratory distress GI: Inspection: Yes normal to inspection Back/Spine/Pelvis: Cervical Spine: normal cervical lordosis Thoracic/Lumbar Spine: thoracic and lumbar spine normal to inspection Skin: General skin exam: no rashes or lesions noted Neuro: General: patient oriented x3, tone normal and moves all extremities Extrem: General: Yes normal to inspection and Yes capillary refill normal Results Labs 04/11/23 08:45 04/09/23 08:13 Labs: Abnormal lab results 04/12/23 Range/Units 11:24 Urine Blood Large (3+) H (Negative) Ur Leukocyte Esterase Trace H (Negative) Urine RBC >20 H (0-2) /HPF Urine WBC 6-10 H (0-5) /HPF Urine 03/31/23 04/01/23 04/11/23 Range/Units 06:09 12:37 00:09 Urine Color Yellow Yellow Yellow Urine Appearance Clear Clear Clear Urine pH 5.5 6.0 6.5 (5.0-9.0) Ur Specific [place] >= 1.030 H 1.015 1.020 (1.005-1.025) Urine Protein Trace Trace Negative (Neg-Trace) mg/dL Urine Glucose (UA) Negative Negative Negative (Negative) mg/dL 04/12/23 04/12/23 Range/Units 11:24 11:24 Urine Color Yellow Cancelled Urine Appearance Clear Cancelled Urine pH 7.0 Cancelled (5.0-9.0) Ur Specific [place] 1.010 Cancelled (1.005-1.025) Urine Protein Negative Cancelled (Neg-Trace) mg/dL Urine Glucose (UA) Negative Cancelled (Negative) mg/dL All other labs normal. Assessment and Plan (1) Incomplete emptying of bladder due to benign prostatic hyperplasia: Status: Acute Plan Alpha-master PVR review Time Spent With Patient Time: Total time managing care of this patient today ____ minutes. Procedures Date of Service Date of Service: 04/12/23
[2023-04-12 15:43] VITALS: BP 130/77; PULSE 92; RESP 16; TEMP 36.1; O2SAT 93
[2023-04-12] MEDS: Magnesium Hydrox/Alum Hydrox 30 ML ORAL.SUSP PO (15:57)
[2023-04-12] MEDS: Acetaminophen 325 MG TABLET 650 MG PO (15:58)
[2023-04-12] MEDS: Omeprazole 40 MG CAPSULE.DR PO (15:58)
[2023-04-12] MEDS: clonazePAM 1 MG TABLET PO (15:58)
[2023-04-12] MEDS: polyethylene glycoL 3350 17 GM POWD.PACK PO (18:39)
[2023-04-12 19:57] VITALS: BP 134/81; PULSE 89; RESP 20; TEMP 36; O2SAT 96
[2023-04-12] MEDS: Docusate Sodium 100 MG CAPSULE PO (20:38)
[2023-04-12] MEDS: Doxazosin Mesylate 2 MG TABLET 4 MG PO (20:38)
--- NOTE | 2023-04-12 23:20 | CONS_ITS ---
DATE OF SERVICE: 04/12/2023 REFERRING PHYSICIAN: Mohinder Yang MD REASON FOR CONSULTATION: Odynophagia and reflux. HISTORY OF PRESENT ILLNESS: The patient is a pleasant 67-year-old man who was admitted to the hospital on March 30 with complaints of dyspnea. Consultation was requested regarding the patient's odynophagia and reflux. He states these symptoms began about a week ago with postprandial reflux and feeling of odynophagia. He had been started on oral antifungal treatment with nystatin on April 08 and today, was started on fluconazole IV. He denies prior history of Sandy esophagitis, but has noticed some white spots in his mouth as well as some burning on the tip of his tongue. His reflux symptoms have improved with oral antacids. He does not take omeprazole on a regular basis, but has been on famotidine for reflux as an outpatient. He reports about 1 year ago undergoing upper endoscopy, which he believes was fairly normal. This was done in the other facility. He has no complaints of hematemesis or melena. PAST MEDICAL HISTORY: 1. HIV infection. 2. BPH. 3. Pneumonia. 4. Chronic kidney disease. 5. Lactic acidosis. CURRENT MEDICATIONS: His current medication list is reviewed in the chart. ALLERGIES: THERE ARE NONE REPORTED. FAMILY HISTORY: This is reviewed with the patient and is noncontributory. SOCIAL HISTORY: There is no current tobacco, alcohol, or substance abuse. He has been a smoker. REVIEW OF SYSTEMS: SKIN: No pruritus. HEENT: Negative. CARDIOPULMONARY: He denies shortness of breath or chest pain currently. GASTROINTESTINAL: As above. GENITOURINARY: Negative. NEUROPSYCHIATRIC: Negative. PHYSICAL EXAMINATION: GENERAL: Shows a pleasant male, lying comfortably in bed. VITAL SIGNS: Reviewed in the electronic medical record and are stable. SKIN: Anicteric. HEENT: Shows no scleral icterus. NECK: Without lymphadenopathy or thyromegaly. LUNGS: Clear. HEART: Shows a regular rate and rhythm. S1, S2. No murmur. ABDOMEN: Soft without focal masses or tenderness. Bowel sounds are present. No organomegaly is noted. EXTREMITIES: Without edema. LABORATORY DATA AND IMAGING STUDIES: Reviewed. IMPRESSION: Odynophagia with gastroesophageal reflux disease. He is currently being treated with Diflucan for possible Sandy esophagitis, which seems likely based on his recent antibiotic usage and history of human immunodeficiency viruses infection. I agree with treating him with 14 days of this, and if he has persistent symptoms, I would recommend endoscopy. For his reflux, I have added omeprazole to his regimen, and he can use oral antacids if he gets breakthrough symptoms. Thanks for asking me to see him. I will follow him in the hospital with you. MD QUOC Melgar/SAVANAH / [phone]
[2023-04-13 03:00] VITALS: BP 110/61; PULSE 87; RESP 18; TEMP 36.9; O2SAT 92
--- NOTE | 2023-04-13 04:11 | PC.NURSE ---
Pt voided 100mL in urinal. Bladder scan amount was 435mL. Pt was straight cath. urine output was 450mL. PVR 79mL. Dr. Gutiérrez notified.
[2023-04-13] MEDS: Omeprazole 40 MG CAPSULE.DR PO (06:04)
[2023-04-13] MEDS: Levothyroxine Sodium 50 MCG TABLET PO (06:04)
--- NOTE | 2023-04-13 07:22 | PC.NURSE ---
refusing fall risk interventions.
[2023-04-13 07:59] VITALS: BP 112/63; PULSE 89; RESP 17; TEMP 36.1; O2SAT 94
[2023-04-13] MEDS: Fluconazole in NaCl,Iso-Osm 100 MG in Container,Empty 0 ML 50 MG IV (08:04)
[2023-04-13] MEDS: 0.9 % Sodium Chloride Flush 3 ML SYRINGE IVFLUSH ×3 (08:07→20:00)
[2023-04-13] MEDS: Rivaroxaban 15 MG TABLET PO (08:08)
[2023-04-13] MEDS: buPROPion HCl XL 300 MG TAB.ER.24H PO (08:08)
[2023-04-13] MEDS: guaiFENesin LA 600 MG TAB.ER.12H 1200 MG PO ×2 (08:08→21:18)
[2023-04-13] MEDS: Escitalopram Oxalate 20 MG TABLET PO (08:08)
[2023-04-13] MEDS: Nystatin Oral Susp 500,000 UNIT/5 ML ORAL.SUSP 500000 UNIT PO ×4 (08:08→21:18)
[2023-04-13] MEDS: Docusate Sodium 100 MG CAPSULE PO ×2 (08:08→21:18)
[2023-04-13] MEDS: Furosemide 20 MG TABLET PO (08:08)
[2023-04-13] MEDS: Atorvastatin Calcium 40 MG TABLET PO (08:08)
[2023-04-13] MEDS: QUEtiapine Fumarate 200 MG TABLET PO ×2 (08:08→21:18)
[2023-04-13] MEDS: polyethylene glycoL 3350 17 GM POWD.PACK PO (08:09)
--- NOTE | 2023-04-13 08:15 | PC.NURSE ---
bladder scan 308cc after voiding 200cc. MD notified, no intervention at this time per MD.
--- NOTE | 2023-04-13 08:31 | MHC.CM.PN ---
pt dcd home no services
--- NOTE | 2023-04-13 09:09 | HO.PM.IMPN ---
Subjective Subjective Date of Service: 04/13/23 Interval History: no new issues, odynophagia better, urinary retention is also better Physical Exam Vital Signs: Vital Signs: Last Vital Signs Temp 96.9 F 04/13/23 07:59 Pulse 89 04/13/23 07:59 Resp 17 04/13/23 07:59 BP 112/63 04/13/23 07:59 Pulse Ox 94 04/13/23 07:59 O2 Del Method Room Air 04/13/23 07:59 O2 Flow Rate 1 04/11/23 07:27 BMI result Body Mass Index 30.9 Objective Data Active Medications Acetaminophen (Acetaminophen 325 Mg Tablet) 650 mg PO Q6H PRN PRN Reason: Pain, Mild (Pain Scale 1-3) Last Admin: 04/12/23 15:58 Dose: 650 mg Documented By: RENAY Al Hydroxide/Mg Hydroxide (Magnesium Hydrox/Alum Hydrox 30 Ml Oral.Susp) 30 ml PO RQ4H PRN PRN Reason: GI Upset Last Admin: 04/12/23 15:57 Dose: 30 ml Documented By: RENAY Atorvastatin Calcium (Atorvastatin Calcium 40 Mg Tablet) 40 mg PO DAILY [facility] Last Admin: 04/13/23 08:08 Dose: 40 mg Documented By: ARTHUR Bupropion HCl (Bupropion Hcl Xl 300 Mg Tab.Er.24h) 300 mg PO DAILY [facility] Last Admin: 04/13/23 08:08 Dose: 300 mg Documented By: ARTHUR Calcium Carbonate (Calcium Carbonate 750 Mg Tab.Chew) 750 mg PO Q6H PRN PRN Reason: heartburn Last Admin: 04/12/23 14:46 Dose: 750 mg Documented By: COOKIE Clonazepam (Clonazepam 1 Mg Tablet) 1 mg PO BID PRN PRN Reason: Anxiety Last Admin: 04/12/23 15:58 Dose: 1 mg Documented By: RENAY Docusate Sodium (Docusate Sodium 100 Mg Capsule) 100 mg PO BID [facility] Last Admin: 04/13/23 08:08 Dose: 100 mg Documented By: ARTHUR Doxazosin Mesylate (Doxazosin Mesylate 2 Mg Tablet) 4 mg PO BEDTIME [facility]; Protocol Last Admin: 04/12/23 20:38 Dose: 4 mg Documented By: MARILOU Escitalopram Oxalate (Escitalopram Oxalate 20 Mg Tablet) 20 mg PO DAILY [facility] Last Admin: 04/13/23 08:08 Dose: 20 mg Documented By: ARTHUR Furosemide (Furosemide 20 Mg Tablet) 20 mg PO DAILY [facility]; Protocol Last Admin: 04/13/23 08:08 Dose: 20 mg Documented By: ARTHUR Guaifenesin (Guaifenesin La 600 Mg Tab.Er.12h) 1,200 mg PO BID [facility] Last Admin: 04/13/23 08:08 Dose: 1,200 mg Documented By: ARTHUR Fluconazole 100 mg/ IV (Miscellaneous Supplies) 50 mls @ 50 mls/hr IV Q24H [facility] Last Admin: 04/13/23 08:04 Dose: 50 mls/hr Documented By: ARTHUR Levothyroxine Sodium (Levothyroxine Sodium 50 Mcg Tablet) 50 mcg PO DAILY@0630 [facility] Last Admin: 04/13/23 06:04 Dose: 50 mcg Documented By: MARILOU Melatonin (Melatonin 3 Mg Tablet) 6 mg PO BEDTIME PRN PRN Reason: Insomnia Last Admin: 04/10/23 21:42 Dose: 6 mg Documented By: DIOR Nystatin (Nystatin Oral Susp 500,000 Unit/5 Ml Oral.Susp) 500,000 unit PO QID [facility]; Protocol Last Admin: 04/13/23 08:08 Dose: 500,000 unit Documented By: ARTHUR Omeprazole (Omeprazole 40 Mg Capsule.Dr) 40 mg PO DAILY@0630 [facility] Last Admin: 04/13/23 06:04 Dose: 40 mg Documented By: MARILOU Ondansetron HCl (Ondansetron Hcl 4 Mg/2 Ml Vial) 4 mg IVPUSH Q8H PRN PRN Reason: Nausea and Vomiting Last Admin: 04/08/23 09:32 Dose: 4 mg Documented By: CHIQUITA Oxycodone HCl (Oxycodone Hcl Immed Release 5 Mg Tablet) 5 mg PO Q6H PRN PRN Reason: Pain, Severe (Pain Scale 7-10) Last Admin: 04/12/23 20:37 Dose: 5 mg Documented By: MARILOU Polyethylene Glycol (Polyethylene Glycol 3350 17 Gm Powd.Pack) 17 gm PO DAILY [facility] Last Admin: 04/13/23 08:09 Dose: 17 gm Documented By: ARTHUR Quetiapine Fumarate (Quetiapine Fumarate 200 Mg Tablet) 200 mg PO BID [facility] Last Admin: 04/13/23 08:08 Dose: 200 mg Documented By: ARTHUR Rivaroxaban (Rivaroxaban 15 Mg Tablet) 15 mg PO DAILY [facility] Last Admin: 04/13/23 08:08 Dose: 15 mg Documented By: ARTHUR Sodium Chloride (0.9 % Sodium Chloride Flush 3 Ml Syringe) 3 ml IVFLUSH QSHIFT [facility] Last Admin: 04/13/23 08:07 Dose: 3 ml Documented By: ARTHUR Labs 04/11/23 08:45 04/09/23 08:13 Labs: Laboratory Results - last 24 hr 04/12/23 04/12/23 11:24 11:24 Urine Color Yellow Cancelled Urine Appearance Clear Cancelled Urine pH 7.0 Cancelled Ur Specific [place] 1.010 Cancelled Urine Protein Negative Cancelled Urine Glucose (UA) Negative Cancelled Urine Ketones Negative Cancelled Urine Blood Large (3+) H Cancelled Urine Nitrite Negative Cancelled Ur Leukocyte Esterase Trace H Cancelled Urine RBC >20 H Cancelled Urine WBC 6-10 H Cancelled Urine WBC Clumps PREVENTIVE MEDICINE PHYSICIAN Cancelled Ur Squamous Epith Cells 0-2 Cancelled Ur Transition Epith Cell PREVENTIVE MEDICINE PHYSICIAN Cancelled Ur Renal Epithelial Cell PREVENTIVE MEDICINE PHYSICIAN Cancelled Calcium Oxalate Crystal PREVENTIVE MEDICINE PHYSICIAN Cancelled Leucine Crystals PREVENTIVE MEDICINE PHYSICIAN Cancelled Cystine Crystals PREVENTIVE MEDICINE PHYSICIAN Cancelled Tyrosine Crystals PREVENTIVE MEDICINE PHYSICIAN Cancelled Other Crystals PREVENTIVE MEDICINE PHYSICIAN Cancelled Urine Bacteria None Seen Cancelled Urine Parasites PREVENTIVE MEDICINE PHYSICIAN Cancelled Bilirubin Casts PREVENTIVE MEDICINE PHYSICIAN Cancelled Epithelial Casts PREVENTIVE MEDICINE PHYSICIAN Cancelled Fatty Casts PREVENTIVE MEDICINE PHYSICIAN Cancelled Hyaline Casts 0-2 Cancelled Granular Casts PREVENTIVE MEDICINE PHYSICIAN Cancelled Waxy Casts PREVENTIVE MEDICINE PHYSICIAN Cancelled Broad Casts PREVENTIVE MEDICINE PHYSICIAN Cancelled RBC Casts PREVENTIVE MEDICINE PHYSICIAN Cancelled WBC Casts PREVENTIVE MEDICINE PHYSICIAN Cancelled Other Casts PREVENTIVE MEDICINE PHYSICIAN Cancelled Urine Trichomonas PREVENTIVE MEDICINE PHYSICIAN Cancelled Urine Yeast PREVENTIVE MEDICINE PHYSICIAN Cancelled Assessment and Plan (1) Pneumonia: Status: Acute (2) Asthma exacerbation: Status: Acute (3) Acute respiratory failure with hypoxia: Status: Acute Plan 67-year-old male with pertinent history of HIV on Biktarvy, mood disorder, tobacco use disorder who presents to the emergency department for evaluation of dyspnea. Acute? hypoxic respiratory failure secondary to acute exacerbation of obstructive lung disease and hear failure--resolved, off O2, off steroid, bronchodilators prn Chronic diastolic heart failure--has had good effect with iv lasix, continue with oral lasix 20 mg daily ?Anion Gap? metabolic acidosis likely due to lactic acidosis--resolved ? lactic acidosis likely due Biktarvy? as per Nephrology,? question exacerbated by updraft treatment and dehydration, lactic acidosis improved ?HIV.?? holding Biktarvy since cause lactic acidosis, CD4 count absolute count is 272 low, CD 8 count 179, recommend follow-up at [facility] for alternate medication ?Tobacco use disorder.?? declined nicotine patch, gradually weaning, smoke 4 cigarettes a day, counseling done. ?Mood disorder.? Continue home mood stabilizers Odynophagia--suspect possible esophageal candidiasis, gi recommends PPI and diflucan ?Chronic kidney disease stage 3.? Creatinine at baseline. 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 Quality Stroke Does the patient have a stroke diagnosis?: No VTE Prior VTE?: No VTE Risk Level:: Medical - moderate - high VTE Device Contraindication: Treatment Not Indicated VTE Drug Contraindication: N/A - Med Ordered
[2023-04-13] MEDS: clonazePAM 1 MG TABLET PO (09:30)
[2023-04-13] MEDS: oxyCODONE HCl Immed Release 5 MG TABLET PO (13:09)
[2023-04-13 15:59] VITALS: BP 111/55; PULSE 90; RESP 20; TEMP 36.3; O2SAT 94
--- NOTE | 2023-04-13 17:21 | PC.NURSE ---
Bladder Scan 446cc, post void, notified, encouraging resident to void. No new orders at this time for cath.
--- NOTE | 2023-04-13 18:35 | PC.NURSE ---
300cc strait cath, order per .
[2023-04-13 19:56] VITALS: BP 124/70; PULSE 93; RESP 20; TEMP 36; O2SAT 94
[2023-04-13] MEDS: Doxazosin Mesylate 2 MG TABLET 4 MG PO (21:17)
[2023-04-14 00:22] VITALS: BP 131/67; PULSE 104; RESP 18; TEMP 36.1; O2SAT 94
[2023-04-14] MEDS: Omeprazole 40 MG CAPSULE.DR PO (05:37)
[2023-04-14] MEDS: Levothyroxine Sodium 50 MCG TABLET PO (05:37)
[2023-04-14] MEDS: Fluconazole in NaCl,Iso-Osm 100 MG in Container,Empty 0 ML 50 MG IV (06:50)
[2023-04-14] MEDS: 0.9 % Sodium Chloride Flush 3 ML SYRINGE IVFLUSH (06:54)
[2023-04-14 08:00] VITALS: BP 130/65; PULSE 93; RESP 18; TEMP 36.3; O2SAT 97
[2023-04-14] MEDS: Docusate Sodium 100 MG CAPSULE PO (08:00)
[2023-04-14] MEDS: Rivaroxaban 15 MG TABLET PO (08:00)
[2023-04-14] MEDS: QUEtiapine Fumarate 200 MG TABLET PO (08:00)
[2023-04-14] MEDS: Nystatin Oral Susp 500,000 UNIT/5 ML ORAL.SUSP 500000 UNIT PO ×2 (08:00→12:43)
[2023-04-14] MEDS: guaiFENesin LA 600 MG TAB.ER.12H 1200 MG PO (08:00)
[2023-04-14] MEDS: Escitalopram Oxalate 20 MG TABLET PO (08:00)
[2023-04-14] MEDS: polyethylene glycoL 3350 17 GM POWD.PACK PO (08:00)
[2023-04-14] MEDS: buPROPion HCl XL 300 MG TAB.ER.24H PO (08:00)
[2023-04-14] MEDS: Furosemide 20 MG TABLET PO (08:00)
[2023-04-14] MEDS: Atorvastatin Calcium 40 MG TABLET PO (08:00)
[2023-04-14] MEDS: oxyCODONE HCl Immed Release 5 MG TABLET PO (08:08)
--- NOTE | 2023-04-14 09:41 | PM.PNNEP ---
Subjective Subjective Date of Service: 04/14/23 Interval history: F/u on CHUCKIE on CKD and now resolved lactic acidosis Physical Exam Vital Signs: Vital Signs: Last Vital Signs Temp 97.3 F 04/14/23 08:00 Pulse 93 04/14/23 08:00 Resp 18 04/14/23 08:00 BP 130/65 04/14/23 08:00 Pulse Ox 97 04/14/23 08:00 O2 Del Method Room Air 04/14/23 08:00 O2 Flow Rate 1 04/11/23 07:27 BMI result Body Mass Index 30.9 Const: Other: General: AO X 3, no acute distress Resp: CTA bilateral CVS: S1,S2,RRR GI: +BS, NT, no distention Skin: No rash, large bruse on right flank unchanged Neuro: motor grossly intact Psych: appropriate affect General: cooperative, healthy appearing, comfortable and no acute distress Orientation/consciousness: patient oriented x3 HEENT: Face and sinus: Yes normal facial exam Mouth: moist mucous membranes Neck: Neck: Yes normal visual inspection, Yes full ROM and Yes trachea midline Chest: Chest palpation & inspection: normal inspection of the chest Resp: Effort & Inspection: normal respiratory effort, able to speak in complete sentences and no respiratory distress GI: Inspection: Yes normal to inspection Back/Spine/Pelvis: Cervical Spine: normal cervical lordosis Thoracic/Lumbar Spine: thoracic and lumbar spine normal to inspection Skin: General skin exam: no rashes or lesions noted Neuro: General: patient oriented x3, tone normal and moves all extremities Extrem: General: Yes normal to inspection and Yes capillary refill normal Objective Data Labs 04/11/23 08:45 04/09/23 08:13 Microbiology Microbiology Results: Microbiology 04/12/23 Unknown Urine clean catch - Urine logan top Urine Culture - Final No growth. 04/05/23 15:22 Sputum - Expectorated Gram Stain - Final 04/05/23 15:22 Sputum - Expectorated Sputum Culture - Final 03/30/23 19:51 Blood - Venous Blood Culture - Final No growth after 5 days. 03/30/23 19:51 Blood - Venous Blood Culture - Final No growth after 5 days. Procedures Date of Service Date of Service: 04/14/23 Assessment & Plan Assessment and plan (1) CKD (chronic kidney disease) stage 3, GFR 30-59 ml/min: Status: Acute Assessment and Plan: Has diff with partial VALLES and this may be the cause of his CKD; ddx would include toxicity from HAART medications, less likely HIVAN. Needs nephrology f/u at discharge if he is staying in the area now. Previously cared for in [place] but tells me he never saw a dental coordinator (2) Lactic acidosis: Status: Acute Assessment and Plan: Drug induce type B lactic acidosis resolved now (3) HIV (human immunodeficiency virus infection): Status: Acute (4) Incomplete emptying of bladder due to benign prostatic hyperplasia: Status: Acute Plan Bladder scans to ensure emptying Renal f/u at discharge Urology f/u at discharge ID f/u at discharge Time Spent With Patient Time: Total time managing care of this patient today ____ minutes. Progress Note: Quality Stroke Does the patient have a stroke diagnosis?: No
--- NOTE | 2023-04-14 09:45 | PM.DS ---
DS: Providers Provider Date of Service: 04/14/23 Date of admission: 03/31/23 03:22 Primary care physician: Isma May MD Consults: 03/31/23 07:44 Consult to Nephrology Routine Consulting Provider: Rj Castaneda Reason for consultation: anion gap acidosis Has provider been notified: No 04/03/23 10:18 Consult to Pulmonology Routine Consulting Provider: [facility] Reason for consultation: acute repiratory failure /pneumonia Has provider been notified: No 04/12/23 07:44 Consult to Gastroenterology Routine Consulting Provider: Wayne Casper Reason for consultation: Odynophagia Has provider been notified: No 04/12/23 10:19 Consult to Urology Routine Consulting Provider: Douglas Robledo Reason for consultation: Urinary retention Has provider been notified: No DS: Diagnosis Discharge Diagnosis (1) CKD (chronic kidney disease) stage 3, GFR 30-59 ml/min: Status: Acute (2) Lactic acidosis: Status: Acute (3) HIV (human immunodeficiency virus infection): Status: Acute (4) Incomplete emptying of bladder due to benign prostatic hyperplasia: Status: Acute DS: Summary Hospital Course Hospital Course: Chief Complaint: Dyspnea This is a 67-year-old male with pertinent history of HIV on Biktarvy, mood disorder, tobacco use disorder who presents to the emergency department for evaluation of dyspnea.? Patient states it started 3 days prior to presentation.? It has been progressive and worse with ambulation.? Also has been having wheezing and nonproductive cough.? No fevers or chills.? Patient admits to smoking cigarettes but denies ever being diagnosed with COPD or asthma.? Not on home inhalers.? Does not use oxygen at home.? States he is compliant with his HIV medication.? No chest discomfort, palpitations, abdominal pain, changes in urinary or bowel habits. In the emergency department, patient with significant wheezing despite multiple DuoNeb treatments. Hospital course: He presented with acute hypoxic respiratory failure and treated for exacerbation of copd, heart failure. Acute hypoxia that required high amoutn of oxygen has resolved. He is doing well on room air, presently at 97%. COPD exacerbation was treated with IV steroid and later oral Prednisone now stopped. Heart failure was treated with IV Lasix and now oral lasix 20 mg daily. Chronic diastolic heart failure--has had good effect with iv lasix, continue with oral lasix 20 mg daily ?Anion Gap? metabolic acidosis likely due to lactic acidosis--resolved ? lactic acidosis likely due Biktarvy? as per Nephrology,? question exacerbated by updraft treatment and dehydration, lactic acidosis improved, he's been off Biktarvy ?HIV.?? holding Biktarvy since cause lactic acidosis, CD4 count absolute count is 272 low, CD 8 count 179, recommend follow-up at [facility] for alternate medication, advised to call HIV when office open tuesdau ?Tobacco use disorder.?? declined nicotine patch, gradually weaning, smoke 4 cigarettes a day, counseling done. ?Mood disorder.? Continue home mood stabilizers Odynophagia--suspect possible esophageal candidiasis,? gi recommends PPI and diflucan x 14 days, Nystatin ?Chronic kidney disease stage 3.? Creatinine at baseline. 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 Discharge coordination time: Greater than 30 minutes Quality: Safe Use of Opioids Does Pt have an Active Cancer Diagnosis on the Problem List?: No Quality: Stroke Does the patient have a stroke diagnosis?: No Physical Exam Vital Signs: Vital Signs: Last Vital Signs Temp 97.3 F 04/14/23 08:00 Pulse 93 04/14/23 08:00 Resp 18 04/14/23 08:00 BP 130/65 04/14/23 08:00 Pulse Ox 97 04/14/23 08:00 O2 Del Method Room Air 04/14/23 08:00 O2 Flow Rate 1 04/11/23 07:27 BMI result Body Mass Index 30.9 Discharge Plan Discharge Anticipated Discharge Date/Time: 04/14/23 09:36 Patient Disposition: Home, Self-Care Discharge Diagnosis: Acute Hypoxic respiratory failure, pneumonia, asthma, HiV Referrals: Isma May MD [Primary Care Provider] - 1 Week Romaine Gutierrez MD [Physician] - 1 Week Discharge Medications: New nystatin 100,000 unit/mL Suspension 500,000 unit PO QID 10 Days Qty: 200 0RF fluconazole [Diflucan] 100 mg tablet 100 mg PO DAILY Qty: 11 0RF doxazosin 2 mg Tablet 4 mg PO BEDTIME Qty: 30 0RF Protocol: Hold for SBP< HOLD for SBP < : 90 omeprazole 20 mg capsule,delayed release(DR/EC) 20 mg PO DAILY Qty: 30 0RF Continued atorvastatin 40 mg tablet 40 mg PO DAILY citalopram 40 mg tablet 40 mg PO DAILY clonazepam 1 mg tablet 1 mg PO BID PRN (Reason: Anxiety) famotidine 20 mg tablet 20 mg PO BID levothyroxine 50 mcg tablet 50 mcg PO QAM ketoconazole 2 % cream topical DAILY bupropion HCl 300 mg tablet extended release 24 hr 300 mg PO QAM zolpidem 12.5 mg tablet,ext release multiphase 12.5 mg PO BEDTIME PRN (Reason: Insomnia) quetiapine 400 mg tablet extended release 24 hr 400 mg PO BEDTIME Xarelto 15 mg tablet 15 mg PO DAILY Biktarvy 50-200-25 mg tablet 1 tab PO DAILY albuterol sulfate 90 mcg/actuation HFA aerosol inhaler 2 puff inhalation Q4-6H PRN (Reason: shortness of breath or wheezing) Qty: 8.5 0RF Discharge Orders: Discharge Order (Routine); Ordered 04/12/23 Ordered By: Mohinder Yang Diet: Advance to usual diet Activity on Discharge: As tolerated Stand Alone Forms: Patient Portal Discharge page Care Plan Goals: full recovery from respiratory failure Health Concerns: respiratory failure pneumonia asthma hematoma Plan of Treatment: continue all your medication, except Bicktarvy which is causing build up of lactic acid, a dangerous condition follow up with your doctor in a week take Diflucan and Nystatin as directed for thrush take Doxszosin for urinary retention and follow up with your urologist follow up with your HIV specialist as soon as possible to be restarted on new medication as you are not able to take Biktarvy (call when office opens this week) Follow up with Dr. Gutierrez kidney doctor Assessment: as above Discharge Date/Time: 04/14/23 14:10
[2023-04-14 11:26] LABS: Anion Gap 11 (12-20); Blood Urea Nitrogen 23 mg/dL (9-16); Calcium 8.6 mg/dL (8.4-10.2); Carbon Dioxide 27 mmol/L (22-29); Chloride 105 mmol/L (96-108); Creatinine Clr Calc Pharmacy 41.8; Estimated Glomerular Filt Rate 34; Glucose Random 86 mg/dL (60-115); Potassium 4.1 mmol/L (3.3-5.1); Sodium 139 mmol/L (135-145)
== END 2023-04-14 14:10 | disposition home or self-care (01) | DRG 190 ==
LOC: HO.ED 20:46 → HO.EDOVER 23:39 → HO.S3 03-31 13:57
PROVIDERS: Hospitalist; Internal Medicine; Internal Medicine Cardiovascular Disease; Internal Medicine Hypertension Specialist; Internal Medicine Nephrology; Internal Medicine Pulmonary Disease; Admitting Provider Student in an Organized Health Care Education/Training Program; Emergency Provider Emergency Medicine; PCP Family Medicine; Visit Provider Internal Medicine
DX: J43.9 Emphysema, unspecified (principal); J18.9 Pneumonia, unspecified organism; J96.01 Acute respiratory failure with hypoxia; N17.9 Acute kidney failure, unspecified; E87.21 Acute metabolic acidosis; I47.20 Ventricular tachycardia, unspecified; J45.901 Unspecified asthma with (acute) exacerbation; I50.32 Chronic diastolic (congestive) heart failure; B37.81 Candidal esophagitis; N13.8 Other obstructive and reflux uropathy; B20 Human immunodeficiency virus [HIV] disease; R31.9 Hematuria, unspecified; E03.9 Hypothyroidism, unspecified; T37.5X5A Adverse effect of antiviral drugs, initial encounter; F39 Unspecified mood [affective] disorder; K21.00 Gastro-esophageal reflux disease with esophagitis, without bleeding; N18.30 Chronic kidney disease, stage 3 unspecified; N40.1 Benign prostatic hyperplasia with lower urinary tract symptoms; R39.14 Feeling of incomplete bladder emptying; E86.0 Dehydration; Z20.822 Contact with and (suspected) exposure to COVID-19; R33.8 Other retention of urine; F17.210 Nicotine dependence, cigarettes, uncomplicated; Z71.6 Tobacco abuse counseling; Z86.711 Personal history of pulmonary embolism; Z86.718 Personal history of other venous thrombosis and embolism; Z79.01 Long term (current) use of anticoagulants; Z79.890 Hormone replacement therapy; Z79.899 Other long term (current) drug therapy
CPT/HCPCS: 36415; 71045; 71275; 74018; 80048; 80051; 80053; 80179; 80307; 81001; 81003; 82040; 82785; 82803; 82947; 83605; 83615; 83735; 83880; 84132; 84156; 85025; 85027; 85610; 85652; 85730; 86038; 86160; 86359; 86360; 86481; 87040; 87086; 87205; 87502; 87635; 92950; 93005; 94640; 97162; 99285; J0456; J1450; J1940; J2405; J2920; J2930; J3475; Q9967

== ENCOUNTER → 2023-03-30 19:57 | Outpatient (BNV) | payer MEDICARE, MEDICAID, SELFPAY | PROVIDERS: Emergency Provider Emergency Medicine; Visit Provider Student in an Organized Health Care Education/Training Program | DX: N18.30 Chronic kidney disease, stage 3 unspecified (principal); E87.20 Acidosis, unspecified; B20 Human immunodeficiency virus [HIV] disease; N40.1 Benign prostatic hyperplasia with lower urinary tract symptoms; R33.9 Retention of urine, unspecified | CPT/HCPCS: 99222; 99232; 99233; 99239 ==

== ENCOUNTER → 2023-03-31 03:22 | Outpatient (BNV) | payer MEDICARE, MEDICAID, SELFPAY | PROVIDERS: Admitting Provider Student in an Organized Health Care Education/Training Program; Emergency Provider Emergency Medicine; PCP Family Medicine; Visit Provider Urology | DX: N40.1 Benign prostatic hyperplasia with lower urinary tract symptoms (principal); R33.9 Retention of urine, unspecified | CPT/HCPCS: 99221 ==

== ENCOUNTER → 2023-03-31 03:22 | Outpatient (BNV) | payer MEDICARE, MEDICAID, SELFPAY | PROVIDERS: Admitting Provider Student in an Organized Health Care Education/Training Program; Emergency Provider Emergency Medicine; PCP Family Medicine; Visit Provider Hospitalist | DX: J45.901 Unspecified asthma with (acute) exacerbation (principal); J96.01 Acute respiratory failure with hypoxia; B20 Human immunodeficiency virus [HIV] disease; J18.9 Pneumonia, unspecified organism | CPT/HCPCS: 99223; 99232 ==

== ENCOUNTER 2025-03-17 04:06 | Inpatient (IN) | payer MEDICARE, MEDICAID, SELFPAY ==
[2025-03-17] VITALS (17 sets, daily range): BP systolic 112–145; BP diastolic 69–87; PULSE 93–125; RESP 16–28; TEMP 36.6–36.9; O2SAT 30–100; BMI 28.8
--- NOTE | ~2025-03-17 | XR_ITS ---
CLINICAL HISTORY: dyspnea 1 view chest x-ray Comparison: CR/SR - XR CHEST 2 VIEWS - 04/06/23 08:10 EDT Findings: Right medial basilar opacity is present. The heart is normal in size. Left AICD device is again noted. No acute fracture. IMPRESSION: Right medial basilar opacity, which may represent a pleural reflection or pneumonia. Recommend CT chest for further evaluation. This document has been electronically signed by: Santy Vaughn on 03/17/2025 06:10:26
--- NOTE | ~2025-03-17 | CT_ITS ---
CLINICAL HISTORY: Worsening SOB CT chest without contrast Comparison: CR - XR CHEST 1V - 03/17/25 22:[address] - CT CHEST ANGIOGRAPHY WITH IV CONTRAST - 03/30/23 21:59 EDT Findings: Centrilobular emphysematous changes are again identified throughout the lungs. Linear areas of increased density in the dependent portion of the lower lobes bilaterally is likely related to scarring or atelectasis. No focal areas of consolidation. No pulmonary mass lesion identified. No pleural effusion or pneumothorax. Left-sided ICD device with single right ventricular lead. Overall heart size within normal limits. No pathologically enlarged mediastinal, hilar, or axillary lymph nodes identified. Air-filled distention of the mid to distal esophagus concentric wall thickening of the distal esophagus. Small hiatal hernia is evident. No free fluid or free air within the upper abdomen. 7 mm calcification within the lateral segment of the left lobe of the liver. No free fluid or free air within the upper abdomen. No acute bony abnormality. IMPRESSION: 1. Centrilobular emphysematous changes without acute infiltrates or edema. 2. Hiatal hernia with findings suggestive of reflux esophagitis. This document has been electronically signed by: Isael Askew MD on 03/21/2025 11:56:59
--- NOTE | ~2025-03-17 | XR_ITS ---
CLINICAL HISTORY: dyspnea 1 view chest x-ray Comparison: CR - XR CHEST 1V - 03/17/25 04:31 EDT Findings: Film obtained in lordotic projection. Heart is borderline enlarged. Stable single lead left-sided ICD. Stable opacity in right lung base medially. No significant pleural effusion or pneumothorax. No acute fracture. IMPRESSION: 1. No significant interval change. Mild opacity in right lung base medially. No new abnormally in the chest This document has been electronically signed by: Carito Snell MD on 03/17/2025 23:43:55
--- NOTE | 2025-03-17 04:16 | ED.SOB ---
HPI - SOB/Dyspnea General Chief Complaint: Dyspnea Stated Complaint: sob Time Seen by Provider: 03/17/25 04:16 Source: patient and EMS Mode of arrival: EMS Limitations: no limitations History of Present Illness ED Provider: Dr. Lina Thornton HPI Narrative: 69-year-old male with history of non oxygen dependent COPD, CHF, ischemic cardiomyopathy status post multiple stent placement presenting with shortness of breath that has been ongoing for the last several days and worsening over the last 24 hours. EMS reports they arrived to the home to find the patient with a room air oxygen level of 67%. He was immediately placed on supplemental oxygen, given a dose of Solu-Medrol, magnesium and several breathing treatments for which his work of breathing significantly improved. However, upon arrival to the emergency department, he remains tachypneic and wheezing. Place on BiPAP almost immediately. Patient was able to tell me that he has been having worsening shortness of breath since returning to the [facility] several months ago. Admits to hospitalization last year for similar issue. He spent 2 weeks in the hospital at that time. He has never been intubated for his COPD. Describes cough productive of clear and white sputum. No reported fever. No known sick contacts or travel. Denies nausea, vomiting, abdominal pain, bowel changes or urinary complaints. No worsening swelling of the lower extremities. He is on Xarelto. Related Data Home Medications ?Medication ?Instructions ?Recorded ?Confirmed atorvastatin 40 mg tablet 40 mg PO DAILY 03/31/23 03/31/23 bictegravir 50 mg-emtricitabine 1 tab PO DAILY 03/31/23 03/31/23 200 mg-tenofovir alafenam 25 mg tablet (Biktarvy) bupropion HCl 300 mg 24 hr tablet, 300 mg PO QAM 03/31/23 03/31/23 extended release citalopram 40 mg tablet 40 mg PO DAILY 03/31/23 03/31/23 clonazepam 1 mg tablet 1 mg PO BID PRN Anxiety 03/31/23 03/31/23 famotidine 20 mg tablet 20 mg PO BID 03/31/23 03/31/23 ketoconazole 2 % topical cream appl topical DAILY 03/31/23 levothyroxine 50 mcg tablet 50 mcg PO QAM 03/31/23 03/31/23 quetiapine 400 mg tablet,extended 400 mg PO BEDTIME 03/31/23 03/31/23 release 24 hr rivaroxaban 15 mg tablet (Xarelto) 15 mg PO DAILY 03/31/23 03/31/23 zolpidem 12.5 mg tablet,extended 12.5 mg PO BEDTIME PRN Insomnia 03/31/23 03/31/23 release,multiphase Previous Rx's ?Medication ?Instructions ?Recorded albuterol sulfate 90 mcg/actuation 2 puff inhalation Q4-6H PRN 01/24/23 aerosol inhaler shortness of breath or wheezing #8.5 grams doxazosin 2 mg tablet 4 mg PO BEDTIME #30 tabs 04/14/23 fluconazole 100 mg tablet 100 mg PO DAILY #11 tabs 04/14/23 (Diflucan) nystatin 100,000 unit/mL oral 500,000 unit (5 mL) PO QID 10 days 04/14/23 suspension #200 mL omeprazole 20 mg capsule,delayed 20 mg PO DAILY #30 caps 04/14/23 release Allergies Allergy/AdvReac Type Severity Reaction Status Date / Time No Known Allergies Allergy Verified 03/17/25 04:18 Review of Systems Review of Systems: As per HPI, full review of systems performed and negative but for the above mentioned pertinent positives and negatives. [facility] Past Medical History [facility] Narrative: Former smoker, COPD, CHF, CAD status post stent placement Medical History CKD (chronic kidney disease) stage 3, GFR 30-59 ml/min Mood disorder HIV (human immunodeficiency virus infection) Tobacco use disorder Social History Social History Household Members: Other Household Members Other:: room mates Housing: Homeless Do you presently have visiting nurse or other home services: No Alcohol intake: never Comment: refusing fall risk intervention. Patient Tobacco Use Status: Refuse Tobacco use screen Smoked in Last 30 Days: No Use of substances other than those prescribed or required for medical reasons: No Advance Directives: No Advance Directives Information Provided: Yes service: No Physical Exam Exam: Exam: GENERAL: Ill-appearing, chronically ill-appearing, severe respiratory distress. SKIN: Normal skin color for ethnicity, warm, dry, no rashes noted. HEENT: Normocephalic, atraumatic, no stridor, EOMI. NECK: Soft, supple, full ROM, midline structures nontender, no step-offs, no deformities, no lymphadenopathy. CHEST: Heart regular tachycardia, barrel chest, symmetric chest rise and fall. PULMONARY: Diffuse, faint, wheezes throughout, tachypnea, diminished air movement bilaterally R>L, severe respiratory distress. ABDOMINAL: Soft,nontender, quiet bowel sounds in all quadrants. : Deferred. MUSCULOSKELETAL: Normal tone, full range of motion, no deformities, no peripheral edema. NEURO: Alert and oriented to person, CN II through XII intact, no focal neurologic deficits. PSYCHIATRIC: Anxious affect, appropriate demeanor. Vital Signs: Vital Signs: Last Vital Signs Temp 98.4 F 03/17/25 04:12 Pulse 93 03/17/25 06:03 Resp 25 H 03/17/25 06:03 BP 121/74 03/17/25 06:03 Pulse Ox 93 03/17/25 06:03 O2 Del Method BiPAP 03/17/25 06:03 Oxygen Flow Rate 6 03/17/25 04:12 BMI result Body Mass Index 28.8 Medications Administered Discontinued Medications Generic Name Dose Route Start Last Admin Trade Name Freq PRN Reason Stop Dose Admin Albuterol Sulfate 7.5 mg/ 0 mg 03/17/25 04:25 03/17/25 04:31 Albuterol/Ipratropium 3 ml INHALE 03/17/25 04:26 10 each ONCE ONE Administration Morphine Sulfate 4 mg 03/17/25 06:06 03/17/25 06:12 Morphine Sulfate 4 Mg/Ml Cartridge IVPUSH 03/17/25 06:07 4 mg ONCE ONE Administration Protocol Ondansetron HCl 4 mg 03/17/25 06:06 03/17/25 06:12 Ondansetron Hcl 4 Mg/2 Ml Vial IVPUSH 03/17/25 06:07 4 mg ONCE ONE Administration Medical Decision Making Medical Decision Making MDM Narrative: Patient presents in respiratory distress. Differential diagnosis includes flash pulmonary edema, COPD exacerbation, pneumothorax, pneumonia, ACS, pulmonary embolism, metabolic acidosis, among many others. The serious nature of the patient's symptoms makes this presentation complex, with potential for significant, worsening morbidity and mortality without immediate treatment/intervention. 5:36 AM 03/17/2025 (Dr. Lina Thornton, D.O.) lactic acid notably elevated at 2.5. Suspect this is secondary to albuterol use with multiple treatments given in the last hour. Do not suspect sepsis at this time. Patient has no change in sputum production, fever or significantly elevated white blood cell count. That being said, he does have potential infiltrates seen on x-ray. We will cover with Rocephin and doxycycline. Holding off on 30 cc/kg fluid bolus at this time given his history of CHF. We will give a small fluid bolus at 500 mL, 999 mL/hour. 7:09 AM 03/17/2025 (Monique Bush.Viktor) case discussed with the hospitalist on-call who agrees with plan for admission. At this point, his gas has improved substantially and he is stable for the floor. Admitted in guarded condition. Differential Diagnosis Differential Diagnoses: The differential diagnosis associated with the presentation includes (As above) Admission/Observation Consideration of admission/observation: Escalation of care including admission/observation considered Consult Healthcare Provider Management of the patient was discussed with: Hospitalist Lab Data MDM Lab Attestation statement: I reviewed the patient's lab results. 03/17/25 04:22 03/17/25 04:22 Labs: Lab Results 03/17/25 03/17/25 03/17/25 Range/Units 04:22 04:32 05:46 WBC 9.5 (4.8-10.8) X10*3/uL RBC 4.37 L D (4.60-5.80) X10*6/uL Hgb 13.8 L D (14.0-18.0) g/dl Hct 41.1 L D (42.0-52.0) % MCV 94.1 (80.0-98.0) fL MCH 31.6 (27.0-33.0) pg MCHC 33.6 (31.0-36.0) g/dl RDW 14.7 (11.0-16.0) % Plt Count 165 (160-400) X10*3/uL MPV 9.4 (9.4-12.4) fL Immature Gran % (Auto) 0.4 (0.0-0.4) % Neut % (Auto) 58.8 (45-73) % Lymph % (Auto) 25.3 (20-40) % [place] % (Auto) 7.4 (2-11) % Eos % (Auto) 7.0 H (0-4) % Baso % (Auto) 1.1 (0-2) % Lymph # (Auto) 2.4 (1.2-4.9) X10*3/uL [place] # (Auto) 0.7 (0.1-1.2) X10*3/uL Eos # (Auto) 0.7 H (0.0-0.4) X10*3/uL Baso # (Auto) 0.1 (0.0-0.2) X10*3/uL Abs Immat Gran (auto) 0.04 H (0.00-0.03) X10*3/uL Absolute Neuts (auto) 5.6 (2.0-8.3) x10*3/uL Absolute Nucleated RBC 0.000 (0.0-0.012) X10*3/uL Nucleated RBC % (auto) 0.0 (0.0-0.2) /100WBC PT 16.9 H (10.9-12.4) SEC INR 1.5 H (0.9-1.1) VBG pH 7.24 L 7.35 (7.32-7.43) VBG pCO2 63 42 mmHg VBG pO2 59 67 mmHg VBG HCO3 27 H 24 (22-26) mmol/L VBG O2 Saturation 82.0 91.0 % VBG Base Excess -1.2 -1.4 mmol/L Sodium 141 (135-145) mmol/L Potassium 4.6 (3.3-5.1) mmol/L Chloride 105 (96-108) mmol/L Carbon Dioxide 24 (22-29) mmol/L Anion Gap 17 (12-20) BUN 19 H (9-16) mg/dL Creatinine 1.96 H (0.5-1.4) mg/dL Estim Creat Clear Calc 40.2 Estimated GFR 34 Random Glucose 136 H (60-115) mg/dL Lactic Acid 2.5 H* (0.5-2.0) mmol/L Calcium 9.1 (8.4-10.2) mg/dL Magnesium 3.4 H (1.6-2.6) mg/dL Total Bilirubin 0.9 (0.0-1.0) mg/dL AST 44 H (5-37) U/L ALT 24 (0-40) U/L Alkaline Phosphatase 75 (39-117) U/L Troponin I High Sens 13.4 D (<3.5-35.0) ng/L B-Natriuretic Peptide 22 (<100) pg/mL Total Protein 7.4 (6.5-8.0) g/dL Albumin 4.5 (3.5-5.0) g/dL Influenza Type A (PCR) NEGATIVE (Negative) Influenza Type B (PCR) NEGATIVE (Negative) RSV RNA Qual (PCR) NEGATIVE (Negative) SARS-CoV-2 RNA (RT-PCR) NEGATIVE (Negative) ABG Data Attestation ABG: I personally reviewed and interpreted this ABG as follows: Interpretation: Respiratory acidosis with metabolic compensation Independent Interpretation I performed an independent interpretation of an: EKG Interpretation: My independent interpretation of the ECG reveals baseline artifact, normal sinus tachycardia with rate of 109, normal axis, normal intervals, no ST elevations or depressions to suggest ischemic changes, no previous for Radiology Impression Discussion of test interpretation with radiology: I have reviewed the radiologist's reading. Radiologist Impression: 1 view chest x-ray Comparison: CR/SR - XR CHEST 2 VIEWS - 04/06/23 08:10 EDT Findings: Right medial basilar opacity is present. The heart is normal in size. Left AICD device is again noted. No acute fracture. IMPRESSION: Right medial basilar opacity, which may represent a pleural reflection or pneumonia. Recommend CT chest for further evaluation. This document has been electronically signed by: Santy Vaughn on 03/17/2025 06:10:26 Independent Historian Clinical information obtained from an independent historian. History obtained from or confirmed by: EMS External Record Review External record reviewed: Inpatient record Chronic Conditions Patient?s care impacted by: Hypertension and Other (COPD, CAD) Critical Care Time Critical Care Time Total Critical Care Time: 45 Attestation: CRITICAL CARE TIME: 45 minutes of critical care time was spent in direct patient care at the bedside or in the immediate area with this patient. Critical care was necessary to treat or prevent imminent or life-threatening deterioration of the following conditions acute respiratory failure with hypoxia and hypercapnia due to COPD exacerbation. This patient is high risk for decompensation and/or . This time was spent assessing and managing the patient, interpreting labs and imaging, coordinating care with other medical providers, gathering history from either the patient, their representatives, EMS or chart review, and discussing management with admitting team. Discharge Plan Discharge Clinical Impression: Acute respiratory failure with hypoxia and hypercapnia, Acute exacerbation of chronic obstructive pulmonary disease, Acute on chronic renal insufficiency, Acute lactic acidosis Patient Disposition: Admitted As Inpatient
--- NOTE | 2025-03-17 04:17 | ECG_ITS ---
Test Reason : SOB Blood Pressure : */* mmHG Vent. Rate : 109 BPM Atrial Rate : 109 BPM P-R Int : 160 ms QRS Dur : 86 ms QT Int : 358 ms P-R-T Axes : 75 67 79 degrees QTcB Int : 482 ms Artifact in tracing Sinus tachycardia Otherwise normal ECG When compared with ECG of 30-Mar-2023 20:02, No significant change was found Referred By: Lina Thornton Electronically Signed By: TIFFANY CAMARA
[2025-03-17] MEDS: Albuterol Sulfate 7.5 MG, Albuterol/Iprat 2.5/0.5MG 3 ML 3 ML INHALE (04:31)
[2025-03-17 04:35] LABS: MANUAL DIFF FLAG NO
[2025-03-17 04:36] LABS: VBG HCO3 27 mmol/L (22-26); VBG O2 % Saturation 82.0 %
[2025-03-17 04:36] LABS: Venous Blood Gas Refer to POC result
[2025-03-17 04:37] LABS: Hematocrit 41.1 % (42.0-52.0); Hemoglobin 13.8 g/dl (14.0-18.0); Imm Gran Abs Auto 0.04 X10*3/uL (0.00-0.03); Imm Gran Pct Auto 0.4 % (0.0-0.4); Lymphocytes Absolute Auto 2.4 X10*3/uL (1.2-4.9); Mean Corpuscular HGB Conc 33.6 g/dl (31.0-36.0); Mean Corpuscular Hemoglobin 31.6 pg (27.0-33.0); Mean Corpuscular Volume 94.1 fL (80.0-98.0); NRBC Abs Auto 0.000 X10*3/uL (0.0-0.012); NRBC Pct Auto 0.0 /100WBC (0.0-0.2); Platelet Count 165 X10*3/uL (160-400); Red Blood Count 4.37 X10*6/uL (4.60-5.80); White Blood Count 9.5 X10*3/uL (4.8-10.8)
[2025-03-17 04:52] LABS: Alanine Aminotransferase 24 U/L (0-40); Albumin Level 4.5 g/dL (3.5-5.0); Alkaline Phosphatase 75 U/L (39-117); Anion Gap 17 (12-20); Aspartate Amino Transferase 44 U/L (5-37); Blood Urea Nitrogen 19 mg/dL (9-16); Calcium 9.1 mg/dL (8.4-10.2); Carbon Dioxide 24 mmol/L (22-29); Chloride 105 mmol/L (96-108); Creatinine Clr Calc Pharmacy 40.2; Estimated Glomerular Filt Rate 34; Magnesium 3.4 mg/dL (1.6-2.6); Potassium 4.6 mmol/L (3.3-5.1); Sodium 141 mmol/L (135-145); Total Protein 7.4 g/dL (6.5-8.0)
[2025-03-17 04:58] LABS: Troponin-I High Sensitivity 13.4 ng/L (<3.5-35.0)
[2025-03-17 05:01] LABS: INTERNATIONAL NORM RATIO 1.5 (0.9-1.1); Prothrombin Time 16.9 SEC (10.9-12.4)
[2025-03-17 05:05] LABS: B Type Natriuretic Peptide 22 pg/mL (<100)
[2025-03-17 05:14] LABS: Resp Syncy Virus RNA Qual PCR NEGATIVE (Negative); SARS COV2 PCR INHOUSE NEGATIVE (Negative)
[2025-03-17 05:47] LABS: Venous Blood Gas Refer to POC result
[2025-03-17 05:51] LABS: VBG HCO3 24 mmol/L (22-26); VBG O2 % Saturation 91.0 %
[2025-03-17 06:31] LABS: Reflex Lactate? Lactic Acid Added
[2025-03-17 07:38] LABS: ~Lactic Acid-LAB USE ONLY 3.8 mmol/L (0.5-2.0)
--- NOTE | 2025-03-17 08:01 | PHA.MEDREC ---
Addendum entered by Konstantin Prado [facility] 03/17/25 08:33: MED REC CHECKED BY [facility] Original Note: Pharmacy Consult ? Medication Reconciliation Pharmacy has completed the medication reconciliation. Spoke with pt and he confirmed his medications. Per pt he takes: Vitamin D2 1250mcg once a week on Mondays (pt last took it 03/08) and he still uses Ketoconazole cream and Nystatin Solution as needed for rashes.
--- NOTE | 2025-03-17 09:12 | PC.NURSE ---
Hospitalist at bedside at this time. Aware of trending lactic. VSS. CPAP removed and sat maintains >95% at this time. Breathing is non labored at this time. Skin pwd. NSR on tele.
[2025-03-17 09:15] LABS: Reflex Lactate? 2 Y
[2025-03-17 11:01] LABS: ~Lactic Acid-LAB USE ONLY 5.0 mmol/L (0.5-2.0)
--- NOTE | 2025-03-17 11:11 | PC.NURSE ---
AM meds held, pt stating he took his morning meds today before coming to ER.
[2025-03-17 12:25] LABS: Cancel Lactic Acid Canceled
--- NOTE | 2025-03-17 14:08 | MHC.CM.PN ---
pt lives with friend he has own ride home dc plan home no nany
--- NOTE | 2025-03-17 14:46 | PM.IMHP ---
History of Present Illness Date of Service: 03/17/25 Chief Complaint: Shortness of breath 69-year-old male with history of non oxygen dependent COPD, CHF, ischemic cardiomyopathy status post multiple stent placement presenting with shortness of breath that has been ongoing for the last several days and worsening over the last 24 hours. EMS reports they arrived to the home to find the patient with a room air oxygen level of 67%. He was immediately placed on supplemental oxygen, given a dose of Solu-Medrol, magnesium and several breathing treatments for which his work of breathing significantly improved. However, upon arrival to the emergency department, he remains tachypneic and wheezing. Place on BiPAP almost immediately. Patient was able to tell me that he has been having worsening shortness of breath since returning to the [facility] several months ago. Admits to hospitalization last year for similar issue. He spent 2 weeks in the hospital at that time. He has never been intubated for his COPD. Describes cough productive of clear and white sputum. No reported fever. No known sick contacts or travel. Denies nausea, vomiting, abdominal pain, bowel changes or urinary complaints. No worsening swelling of the lower extremities. He is on Xarelto.. Successfully weaned off BiPAP in the ER and now stable for admission to general medical floor Review of Systems Review of Systems: Denies chest pain Admits shortness of breath that has improved since admission Denies nausea vomiting diarrhea Denies fever chills PMFSH Medical History (Updated 03/17/25 @ 14:49 by Tan Rodriguez DO) HIV (human immunodeficiency virus infection) CKD (chronic kidney disease) stage 3, GFR 30-59 ml/min Mood disorder Tobacco use disorder Social History Household Members: Other Household Members Other:: room mates Housing: Homeless Do you presently have visiting nurse or other home services: No Alcohol intake: never Comment: refusing fall risk intervention. Patient Tobacco Use Status: Refuse Tobacco use screen Smoked in Last 30 Days: No Use of substances other than those prescribed or required for medical reasons: No Advance Directives: No Advance Directives Information Provided: Yes service: No Meds Allergies Allergy/AdvReac Type Severity Reaction Status Date / Time No Known Allergies Allergy Verified 03/17/25 04:18 Active Medications: Current Medications Acetaminophen (Acetaminophen 325 Mg Tablet) 650 mg PO Q6H PRN PRN Reason: Pain, Mild 1-3,fever,headache Albuterol/Ipratropium (Albuterol/Iprat 2.5/0.5mg 3 Ml Ampul.Neb) 3 ml INHALE Q4H PRN PRN Reason: Shortness of Breath/Wheezing Atorvastatin Calcium (Atorvastatin Calcium 40 Mg Tablet) 40 mg PO BEDTIME [facility] Bupropion HCl (Bupropion Hcl Xl 300 Mg Tab.Er.24h) 300 mg PO DAILY [facility] Calcium Carbonate (Calcium Carbonate 750 Mg Tab.Chew) 750 mg PO Q4H PRN PRN Reason: Heartburn Clonazepam (Clonazepam 1 Mg Tablet) 1 mg PO BID PRN PRN Reason: Anxiety Dolutegravir Sodium (Dolutegravir Sodium 50 Mg Tablet) 50 mg PO DAILY [facility] Last Admin: 03/17/25 11:15 Dose: Not Given Doxazosin Mesylate (Doxazosin Mesylate 2 Mg Tablet) 4 mg PO BEDTIME [facility]; Protocol Escitalopram Oxalate (Escitalopram Oxalate 20 Mg Tablet) 20 mg PO DAILY [facility] Lamivudine (Lamivudine 150 Mg Tablet) 300 mg PO DAILY [facility] Last Admin: 03/17/25 11:16 Dose: Not Given Levothyroxine Sodium (Levothyroxine Sodium 50 Mcg Tablet) 50 mcg PO DAILY@0600 [facility] Last Admin: 03/17/25 11:10 Dose: Not Given Magnesium Hydroxide (Milk Of Magnesia 30 Ml Oral.Susp) 30 ml PO DAILY PRN PRN Reason: Constipation Melatonin (Melatonin 3 Mg Tablet) 6 mg PO BEDTIME PRN PRN Reason: Insomnia Non-Formulary Medication (Entecavir) 0.5 mg PO DAILY [facility] Omeprazole (Omeprazole 20 Mg Capsule.Dr) 20 mg PO DAILY@0630 [facility] Last Admin: 03/17/25 11:11 Dose: Not Given Ondansetron HCl (Ondansetron Hcl 4 Mg/2 Ml Vial) 4 mg IVPUSH Q8H PRN PRN Reason: Nausea and Vomiting Oxycodone HCl (Oxycodone Hcl Immed Release 5 Mg Tablet) 5 mg PO Q6H PRN PRN Reason: Pain, Moderate(Pain Scale 4-6) Quetiapine Fumarate (Quetiapine Fumarate 200 Mg Tablet) 200 mg PO BID [facility] Last Admin: 03/17/25 11:11 Dose: Not Given Rivaroxaban (Rivaroxaban 15 Mg Tablet) 15 mg PO DAILY [facility] Last Admin: 03/17/25 11:11 Dose: Not Given Sodium Chloride (0.9 % Sodium Chloride Flush 3 Ml Syringe) 3 ml IVFLUSH QSHIFT [facility] Trazodone HCl (Trazodone Hcl 50 Mg Tablet) 50 mg PO BEDTIME [facility] Home Medications ?Medication ?Instructions ?Recorded ?Confirmed ?Last Taken ?Type atorvastatin 40 mg tablet 40 mg PO BEDTIME 03/31/23 03/17/25 03/16/25 History bupropion HCl 300 mg 24 hr tablet, 300 mg PO DAILY 03/31/23 03/17/25 03/16/25 History extended release citalopram 40 mg tablet 40 mg PO DAILY 03/31/23 03/17/25 03/16/25 History clonazepam 1 mg tablet 1 mg PO BID PRN Anxiety 03/31/23 03/17/25 Unknown History ketoconazole 2 % topical cream 1 appl topical DAILY PRN Rash 03/31/23 03/17/25 Unknown History levothyroxine 50 mcg tablet 50 mcg PO DAILY@0600 03/31/23 03/17/25 03/16/25 History quetiapine 400 mg tablet,extended 400 mg PO BEDTIME 03/31/23 03/17/25 03/16/25 History release 24 hr rivaroxaban 15 mg tablet (Xarelto) 15 mg PO DAILY 03/31/23 03/17/25 03/16/25 History Fiber Gummies 1 gummy PO DAILY 03/17/25 03/17/25 03/16/25 History ascorbic acid (vitamin C) 1,000 mg 1,000 mg PO DAILY 03/17/25 03/17/25 03/16/25 History tablet (Vitamin C) biotin 5,000 mcg chewable tablet 1 mcg PO DAILY 03/17/25 03/17/25 03/16/25 History calcitriol 0.25 mcg capsule 0.25 mcg PO DAILY 03/17/25 03/17/25 03/16/25 History cholecalciferol (vitamin D3) 50 50 mcg PO DAILY 03/17/25 03/17/25 03/16/25 History mcg (2,000 unit) tablet (Vitamin D3) coenzyme Q10 300 mg capsule 300 mg PO DAILY 03/17/25 03/17/25 03/16/25 History cyanocobalamin (vitamin B-12) 1,000 mcg PO DAILY 03/17/25 03/17/25 03/16/25 History 1,000 mcg tablet (Vitamin B-12) dolutegravir 50 mg-lamivudine 300 1 tab PO DAILY 03/17/25 03/17/25 03/16/25 History mg tablet (Dovato) entecavir 0.5 mg tablet 0.5 mg PO DAILY 03/17/25 03/17/25 03/16/25 History ergocalciferol (vitamin D2) 1,250 1,250 mcg PO MO 03/17/25 03/17/25 03/08/25 History mcg (50,000 unit) capsule ywhsrnae-bznf-rmnir acid 400 1 tab PO DAILY 03/17/25 03/17/25 03/16/25 History mcg-lycopene 600 mcg-ginkgo 120 mg tablet (One Daily For Men 50 Plus Adv) nystatin 100,000 unit/mL oral 500,000 unit PO QID PRN Rash 03/17/25 03/17/25 Unknown History suspension trazodone 50 mg tablet 50 mg PO BEDTIME 03/17/25 03/17/25 03/16/25 History Physical Exam Vital Signs and Narrative: Vital Signs: Last Vital Signs Temp 98.4 F 03/17/25 04:12 Pulse 102 H 03/17/25 09:11 Resp 18 03/17/25 09:11 BP 140/81 H 03/17/25 09:11 Pulse Ox 95 03/17/25 09:11 O2 Del Method Room Air 03/17/25 09:11 FiO2 25 03/17/25 07:30 Oxygen Flow Rate 6 03/17/25 04:12 BMI result Body Mass Index 28.8 Const: Other: Awake alert oriented x3 breathing comfortably on room air Resp: Other: Diminished at bases with scattered expiratory wheezes throughout Cardio: Other: No S4; positive S1-S2; no S3 murmurs rubs or gallops GI: Other: Soft nontender nondistended normoactive bowel sounds Neuro: Other: Cranial nerves 2-12 grossly intact as tested. Motor is 5/5 all extremities. Sensation is intact. Cognition appropriate. Gait not observed Extrem: Other: No edema bilaterally Results Labs 03/17/25 04:22 03/17/25 04:22 Labs: Laboratory Results - last 24 hr 03/17/25 03/17/25 03/17/25 04:22 04:32 05:46 MCV 94.1 MCH 31.6 MCHC 33.6 RDW 14.7 Plt Count 165 MPV 9.4 Immature Gran % (Auto) 0.4 Neut % (Auto) 58.8 Lymph % (Auto) 25.3 [place] % (Auto) 7.4 Eos % (Auto) 7.0 H Baso % (Auto) 1.1 Lymph # (Auto) 2.4 [place] # (Auto) 0.7 Eos # (Auto) 0.7 H Baso # (Auto) 0.1 Abs Immat Gran (auto) 0.04 H Absolute Neuts (auto) 5.6 Absolute Nucleated RBC 0.000 Nucleated RBC % (auto) 0.0 PT 16.9 H INR 1.5 H VBG pH 7.24 L 7.35 VBG pCO2 63 42 VBG pO2 59 67 VBG HCO3 27 H 24 VBG O2 Saturation 82.0 91.0 VBG Base Excess -1.2 -1.4 Anion Gap 17 Estim Creat Clear Calc 40.2 Estimated GFR 34 Random Glucose 136 H Lactic Acid 2.5 H* Lactic Acid F/U @ 2Hr Lactic Acid F/U @ 4Hr Calcium 9.1 Magnesium 3.4 H Total Bilirubin 0.9 AST 44 H ALT 24 Alkaline Phosphatase 75 B-Natriuretic Peptide 22 Total Protein 7.4 Albumin 4.5 Influenza Type A (PCR) NEGATIVE Influenza Type B (PCR) NEGATIVE RSV RNA Qual (PCR) NEGATIVE SARS-CoV-2 RNA (RT-PCR) NEGATIVE 03/17/25 03/17/25 07:11 10:33 MCV MCH MCHC RDW Plt Count MPV Immature Gran % (Auto) Neut % (Auto) Lymph % (Auto) [place] % (Auto) Eos % (Auto) Baso % (Auto) Lymph # (Auto) [place] # (Auto) Eos # (Auto) Baso # (Auto) Abs Immat Gran (auto) Absolute Neuts (auto) Absolute Nucleated RBC Nucleated RBC % (auto) PT INR VBG pH VBG pCO2 VBG pO2 VBG HCO3 VBG O2 Saturation VBG Base Excess Anion Gap Estim Creat Clear Calc Estimated GFR Random Glucose Lactic Acid Lactic Acid F/U @ 2Hr 3.8 H* Lactic Acid F/U @ 4Hr 5.0 H* Calcium Magnesium Total Bilirubin AST ALT Alkaline Phosphatase B-Natriuretic Peptide Total Protein Albumin Influenza Type A (PCR) Influenza Type B (PCR) RSV RNA Qual (PCR) SARS-CoV-2 RNA (RT-PCR) Assessment and Plan (1) Acute respiratory failure with hypoxia and hypercapnia: Status: Acute (2) Acute exacerbation of chronic obstructive pulmonary disease: Status: Acute (3) Acute on chronic renal insufficiency: Status: Acute (4) HIV (human immunodeficiency virus infection): Qualifiers: HIV symptom status: unspecified Qualified Code(s): Z21 - Asymptomatic human immunodeficiency virus [HIV] infection status Status: Acute Plan 69-year-old male with history of non oxygen dependent COPD, CHF, ischemic cardiomyopathy status post multiple stent placement presenting with shortness of breath that has been ongoing for the last several days and worsening over the last 24 hours. Required BiPAP on admission but has subsequently been weaned to room air. 1. Acute hypoxic respiratory failure secondary to acute exacerbation of COPD -ceftriaxone/doxycycline (1) -methylprednisolone 125 mg initially followed by 60 mg IV q.6 hours -DuoNebs q.4 hours while awake -titrate O2 to maintain sats greater than or equal to 90% 2. Acute on chronic renal insufficiency in backdrop of CKD 3 -appears to be at baseline at present -follow renals/divalents -adjust therapies as clinically indicated 3. HIV -stable well compensated -continue outpatient therapies 4. Ischemic cardiomyopathy (by history) -BNP normal -continue outpatient therapies; adjust as indicated 5. History DVT/PE -continue Xarelto at outpatient dosing Full code Xarelto Patient will require at least 2 midnights going forward of inpatient stay for IV antibiotics and IV steroids to treat acute exacerbation of COPD. This can not be achieved a lesser acute setting Quality Stroke Does the patient have a stroke diagnosis?: No VTE Prior VTE?: Yes VTE Risk Level:: Medical - moderate - high VTE Device Contraindication: Treatment Not Indicated VTE Drug Contraindication: N/A - Med Ordered
[2025-03-17] MEDS: 0.9 % Sodium Chloride Flush 3 ML SYRINGE IVFLUSH (15:38)
--- NOTE | 2025-03-17 16:26 | PC.NURSE ---
Pt was moving around in the bed, exerted himself a bit and became panicked. He was sitting at the end of the bed reporting dyspnea. He was tachypneic, audibly wheezing, diaphoretic and core was cyanotic. spO2 was 88% on room air. NRB @15L was placed on patient and respiratory was called. notified. Pt placed on high-flow 30% O2 50L PM by RT. Breathing has improved, spO2 now in high 90s.
[2025-03-17] MEDS: levalbuterol HCL 3.75 MG, Ipratropium Bromide 0.5 MG INHALE ×2 (16:38→22:20)
--- NOTE | 2025-03-17 16:55 | PC.NURSE ---
Improvement noted on high flow, no longer labored breathing, skin pink warm and dry.
--- NOTE | 2025-03-17 22:08 | PC.NURSE ---
Addendum entered by Jessica Johnson RN 03/18/25 06:31: Pt attempted to use urinal sitting bedside, on exertion found himself working to breathe and SOB with O2 sat below 88%. Pt placed on 2L NC with improvement to 94%, pt continuing to feel SOB and audible wheezing noted, Pt given PRN duoneb, pending effect. Addendum entered by Jessica Johnson RN 03/18/25 03:33: Per Dr. Gutiérrez, pt O2 sat to be kept between 88-92%, respiratory removed pt from high flow. pt tolerating well at this time with O2 sat 90-92% on RA Original Note: Pt was found to be sitting on the edge of the bed attempting to use the urinal, exerted himself and began to feel sob. He was tachypneic, tachycardic, and audibly wheezing. spO2 was 89-90% on high flow. respiratory was called. Dr. Gutiérrez notified, pending new orders.
[2025-03-17 22:34] LABS: VBG HCO3 17 mmol/L (22-26); VBG O2 % Saturation 100.0 %
[2025-03-17 22:37] LABS: Venous Blood Gas Refer to POC result
[2025-03-17 22:52] LABS: B Type Natriuretic Peptide 72 pg/mL (<100)
[2025-03-18] VITALS (15 sets, daily range): BP systolic 115–149; BP diastolic 63–91; PULSE 90–116; RESP 12–22; TEMP 36.1–36.4; O2SAT 87–98; BMI 29.9
[2025-03-18] MEDS: oxyCODONE HCl Immed Release 5 MG TABLET PO (00:03)
[2025-03-18 04:36] LABS: Hematocrit 36.9 % (42.0-52.0); Hemoglobin 12.6 g/dl (14.0-18.0); Imm Gran Abs Auto 0.08 X10*3/uL (0.00-0.03); Imm Gran Pct Auto 0.5 % (0.0-0.4); Lymphocytes Absolute Auto 1.0 X10*3/uL (1.2-4.9); MANUAL DIFF FLAG SCAN; Mean Corpuscular HGB Conc 34.1 g/dl (31.0-36.0); Mean Corpuscular Hemoglobin 31.6 pg (27.0-33.0); Mean Corpuscular Volume 92.5 fL (80.0-98.0); NRBC Abs Auto 0.000 X10*3/uL (0.0-0.012); NRBC Pct Auto 0.0 /100WBC (0.0-0.2); Platelet Count 160 X10*3/uL (160-400); Red Blood Count 3.99 X10*6/uL (4.60-5.80); SCAN SMEAR FLAG 1; White Blood Count 16.8 X10*3/uL (4.8-10.8)
[2025-03-18 04:55] LABS: Alanine Aminotransferase 29 U/L (0-40); Albumin Level 4.2 g/dL (3.5-5.0); Alkaline Phosphatase 62 U/L (39-117); Anion Gap 14 (12-20); Aspartate Amino Transferase 51 U/L (5-37); Blood Urea Nitrogen 38 mg/dL (9-16); Calcium 8.8 mg/dL (8.4-10.2); Carbon Dioxide 23 mmol/L (22-29); Chloride 105 mmol/L (96-108); Creatinine Clr Calc Pharmacy 38.6; Estimated Glomerular Filt Rate 33; Potassium 4.2 mmol/L (3.3-5.1); Sodium 138 mmol/L (135-145); Total Protein 7.0 g/dL (6.5-8.0)
[2025-03-18] MEDS: Albuterol/Iprat 2.5/0.5MG 3 ML AMPUL.NEB INHALE ×2 (06:31→23:14)
[2025-03-18] MEDS: levalbuterol HCL 1.25 MG, Ipratropium Bromide 0.5 MG INHALE ×5 (07:44→23:27)
[2025-03-18] MEDS: Rivaroxaban 15 MG TABLET PO (08:21)
[2025-03-18] MEDS: buPROPion HCl XL 300 MG TAB.ER.24H PO (08:22)
[2025-03-18] MEDS: 0.9 % Sodium Chloride Flush 3 ML SYRINGE IVFLUSH ×2 (08:22→15:12)
--- NOTE | 2025-03-18 08:29 | P.CDIM_ITS ---
PROVIDER RESPONSE TEXT: To clarify, the appropriate diagnosis supported by the clinical indicators: Acute on chronic renal failure Stage 3 (CHUCKIE/CKD) QUERY TEXT: PHYSICIAN'S DOCUMENTATION REQUEST Date of Query: 03/18/2025 07:53 AM EDT Patient Name: Ryder Miller Admit Date: 03/17/2025 Dear Tan Rodriguez DO, A review of the medical record indicates additional documentation may be needed. Please review below and update the documentation accordingly. Clinical Indicators: Progress noted 03/17/25 - Acute on chronic renal insufficiency in backdrop of CKD 3. BUN 38 CR 2.04 GFR 34 Follow renals/divalents Adjust therapies as clinically indicated. Please clarify which of the following accurately represents the patient's renal status: Acute on chronic renal failure Stage 3 (CHUCKIE/CKD) Acute on chronic renal insufficiency CKD 3 Other specified Other (explain) Clinically unable to determine (explain) Thank you, Theresa Tolentino, CCS, CDIS Use of terms such as suspected, likely, concern for, or probable (associated with a specific diagnosis that is being evaluated, monitored, or treated as if it exists) are acceptable and can be coded in the inpatient setting, when documented at the time of discharge. Please use your independent medical judgment in providing your response. THIS QUERY IS PART OF THE PERMANENT MEDICAL RECORD
--- NOTE | 2025-03-18 08:39 | PC.NURSE ---
pt sitting up at edge of bed, transitioned to commode well. Remained on room air and did well with movement. Spot goal 88-92 per hospitalist. ate breakfast, RT with pt as well for breathing treatment.
--- NOTE | 2025-03-18 12:46 | PC.NURSE ---
Awaiting arrival of methylprednisone from pharmacy, not stocked in pyxis.
--- NOTE | 2025-03-18 15:16 | HO.PM.IMPN ---
Subjective Subjective Date of Service: 03/18/25 Interval History: Slowly responding to therapies. Breathing improved Review of Systems Denies chest pain Admits shortness of breath that has improved since admission Denies nausea vomiting diarrhea Denies fever chills Physical Exam Vital Signs: Vital Signs: Last Vital Signs Temp 97.5 F 03/18/25 08:43 Pulse 90 03/18/25 15:13 Resp 20 03/18/25 15:13 BP 144/72 H 03/18/25 08:43 Pulse Ox 94 03/18/25 08:43 O2 Del Method Room Air 03/18/25 08:43 O2 Flow Rate 2 03/18/25 06:00 FiO2 30 03/17/25 16:56 Oxygen Flow Rate 6 03/17/25 04:12 BMI result Body Mass Index 28.8 Const: Other: Awake alert oriented x3 breathing comfortably on room air Resp: Other: Diminished at bases with scattered expiratory wheezes throughout Cardio: Other: No S4; positive S1-S2; no S3 murmurs rubs or gallops GI: Other: Soft nontender nondistended normoactive bowel sounds Neuro: Other: Cranial nerves 2-12 grossly intact as tested. Motor is 5/5 all extremities. Sensation is intact. Cognition appropriate. Gait not observed Extrem: Other: No edema bilaterally Objective Data Active Medications Acetaminophen (Acetaminophen 325 Mg Tablet) 650 mg PO Q6H PRN PRN Reason: Pain, Mild 1-3,fever,headache Last Admin: 03/18/25 03:07 Dose: 650 mg Documented By: YONNY Albuterol/Ipratropium (Albuterol/Iprat 2.5/0.5mg 3 Ml Ampul.Neb) 3 ml INHALE Q4H PRN PRN Reason: Shortness of Breath/Wheezing Last Admin: 03/18/25 06:31 Dose: 3 ml Documented By: YONNY Atorvastatin Calcium (Atorvastatin Calcium 40 Mg Tablet) 40 mg PO BEDTIME [facility] Last Admin: 03/17/25 21:19 Dose: 40 mg Documented By: YONNY Bupropion HCl (Bupropion Hcl Xl 300 Mg Tab.Er.24h) 300 mg PO DAILY [facility] Last Admin: 03/18/25 08:22 Dose: 300 mg Documented By: DELPHINE Calcium Carbonate (Calcium Carbonate 750 Mg Tab.Chew) 750 mg PO Q4H PRN PRN Reason: Heartburn Ceftriaxone Sodium (Ceftriaxone Sodium 1 Gm Vial) 1 gm IVPUSH Q24H [facility] Last Admin: 03/18/25 15:12 Dose: 1 gm Documented By: SHANE Clonazepam (Clonazepam 1 Mg Tablet) 1 mg PO BID PRN PRN Reason: Anxiety Last Admin: 03/18/25 04:28 Dose: 1 mg Documented By: YONNY Levalbuterol HCl 1.25 mg/ (Ipratropium [place] 0.5 mg) 0 mg INHALE Q4H [facility] Last Admin: 03/18/25 15:13 Dose: 1 dose Documented By: FERNANDO Dolutegravir Sodium (Dolutegravir Sodium 50 Mg Tablet) 50 mg PO DAILY [facility] Last Admin: 03/18/25 08:22 Dose: 50 mg Documented By: DELPHINE Doxazosin Mesylate (Doxazosin Mesylate 2 Mg Tablet) 4 mg PO BEDTIME [facility]; Protocol Last Admin: 03/17/25 21:18 Dose: 4 mg Documented By: YONNY Escitalopram Oxalate (Escitalopram Oxalate 20 Mg Tablet) 20 mg PO DAILY [facility] Last Admin: 03/18/25 08:21 Dose: 20 mg Documented By: DELPHINE Doxycycline Hyclate 100 mg/ (Sodium Chloride) 250 mls @ 166.67 mls/hr IV Q12H [facility] Last Admin: 03/18/25 15:12 Dose: 166.67 mls/hr Documented By: SHANE Lamivudine (Lamivudine 150 Mg Tablet) 300 mg PO DAILY [facility] Last Admin: 03/18/25 08:22 Dose: 300 mg Documented By: DELPHINE Levothyroxine Sodium (Levothyroxine Sodium 50 Mcg Tablet) 50 mcg PO DAILY@0600 [facility] Last Admin: 03/18/25 05:52 Dose: 50 mcg Documented By: YONNY Magnesium Hydroxide (Milk Of Magnesia 30 Ml Oral.Susp) 30 ml PO DAILY PRN PRN Reason: Constipation Melatonin (Melatonin 3 Mg Tablet) 6 mg PO BEDTIME PRN PRN Reason: Insomnia Methylprednisolone Sodium Succinate (Methylprednisolone Sod Succ 125 Mg/2 Ml Vial) 60 mg IVPUSH Q6H [facility] Last Admin: 03/18/25 13:10 Dose: 60 mg Documented By: NOMAN-OBINNA Non-Formulary Medication (Entecavir) 0.5 mg PO DAILY [facility] Omeprazole (Omeprazole 20 Mg Capsule.Dr) 20 mg PO DAILY@0630 [facility] Last Admin: 03/18/25 05:52 Dose: 20 mg Documented By: YONNY Ondansetron HCl (Ondansetron Hcl 4 Mg/2 Ml Vial) 4 mg IVPUSH Q8H PRN PRN Reason: Nausea and Vomiting Oxycodone HCl (Oxycodone Hcl Immed Release 5 Mg Tablet) 5 mg PO Q6H PRN PRN Reason: Pain, Moderate(Pain Scale 4-6) Last Admin: 03/18/25 00:03 Dose: 5 mg Documented By: YONNY Quetiapine Fumarate (Quetiapine Fumarate 200 Mg Tablet) 200 mg PO BID [facility] Last Admin: 03/18/25 08:21 Dose: 200 mg Documented By: DELPHINE Rivaroxaban (Rivaroxaban 15 Mg Tablet) 15 mg PO DAILY [facility] Last Admin: 03/18/25 08:21 Dose: 15 mg Documented By: DELPHINE Sodium Chloride (0.9 % Sodium Chloride Flush 3 Ml Syringe) 3 ml IVFLUSH QSHIFT [facility] Last Admin: 03/18/25 15:12 Dose: 3 ml Documented By: SHANE Trazodone HCl (Trazodone Hcl 50 Mg Tablet) 50 mg PO BEDTIME [facility] Last Admin: 03/17/25 21:18 Dose: 50 mg Documented By: YONNY Labs 03/18/25 04:28 03/18/25 04:28 Labs: Laboratory Results - last 24 hr 03/17/25 03/17/25 03/18/25 22:25 22:28 04:28 MCV 92.5 MCH 31.6 MCHC 34.1 RDW 15.2 Plt Count 160 MPV 9.7 Immature Gran % (Auto) 0.5 H Neut % (Auto) 91.4 H Lymph % (Auto) 5.9 L [place] % (Auto) 2.0 Eos % (Auto) 0.1 Baso % (Auto) 0.1 Lymph # (Auto) 1.0 L [place] # (Auto) 0.3 Eos # (Auto) 0.0 Baso # (Auto) 0.0 Abs Immat Gran (auto) 0.08 H Absolute Neuts (auto) 15.3 H Absolute Nucleated RBC 0.000 Nucleated RBC % (auto) 0.0 Smear Tech's Comments VERIFIED VBG pH 7.40 VBG pCO2 27 VBG pO2 137 VBG HCO3 17 L VBG O2 Saturation 100.0 VBG Base Excess -5.9 Anion Gap 14 Estim Creat Clear Calc 38.6 Estimated GFR 33 Random Glucose 136 H Calcium 8.8 Total Bilirubin 0.5 AST 51 H ALT 29 Alkaline Phosphatase 62 B-Natriuretic Peptide 72 Total Protein 7.0 Albumin 4.2 Microbiology Microbiology Results: Microbiology 03/17/25 04:22 Blood Culture - Preliminary Blood - Venous No growth after 24 hours. 03/17/25 04:22 Blood Culture - Preliminary Blood - Venous No growth after 24 hours. Assessment and Plan (1) Acute respiratory failure with hypoxia and hypercapnia: Status: Acute (2) Acute exacerbation of chronic obstructive pulmonary disease: Status: Acute Plan 69-year-old male with history of non oxygen dependent COPD, CHF, ischemic cardiomyopathy status post multiple stent placement presenting with shortness of breath that has been ongoing for the last several days and worsening over the last 24 hours. Required BiPAP on admission but has subsequently been weaned to room air. 1. Acute hypoxic respiratory failure secondary to acute exacerbation of COPD -ceftriaxone/doxycycline (2) -methylprednisolone 125 mg initially followed by 60 mg IV q.6 hours -DuoNebs q.4 hours while awake -titrate O2 to maintain sats greater than or equal to 90% 2. Acute on chronic renal insufficiency in backdrop of CKD 3 -appears to be at baseline at present -follow renals/divalents -adjust therapies as clinically indicated 3. HIV -stable well compensated -continue outpatient therapies 4. Ischemic cardiomyopathy (by history) -BNP normal -continue outpatient therapies; adjust as indicated 5. History DVT/PE -continue Xarelto at outpatient dosing Full code Xarelto Patient will require at least 2 midnights going forward of inpatient stay for IV antibiotics and IV steroids to treat acute exacerbation of COPD. This can not be achieved a lesser acute setting Quality Stroke Does the patient have a stroke diagnosis?: No VTE Prior VTE?: Yes VTE Risk Level:: Medical - moderate - high VTE Device Contraindication: Treatment Not Indicated VTE Drug Contraindication: N/A - Med Ordered
[2025-03-19] VITALS (13 sets, daily range): BP systolic 114–149; BP diastolic 56–71; PULSE 92–105; RESP 16–20; TEMP 36.1–36.9; O2SAT 90–94
[2025-03-19] MEDS: levalbuterol HCL 1.25 MG, Ipratropium Bromide 0.5 MG INHALE ×5 (02:42→19:56)
[2025-03-19 06:43] LABS: MANUAL DIFF FLAG NO
[2025-03-19 07:09] LABS: Hematocrit 38.2 % (42.0-52.0); Hemoglobin 12.9 g/dl (14.0-18.0); Imm Gran Abs Auto 0.21 X10*3/uL (0.00-0.03); Imm Gran Pct Auto 1.4 % (0.0-0.4); Lymphocytes Absolute Auto 0.8 X10*3/uL (1.2-4.9); Mean Corpuscular HGB Conc 33.8 g/dl (31.0-36.0); Mean Corpuscular Hemoglobin 31.8 pg (27.0-33.0); Mean Corpuscular Volume 94.1 fL (80.0-98.0); NRBC Abs Auto 0.000 X10*3/uL (0.0-0.012); NRBC Pct Auto 0.0 /100WBC (0.0-0.2); Platelet Count 151 X10*3/uL (160-400); Red Blood Count 4.06 X10*6/uL (4.60-5.80); White Blood Count 14.9 X10*3/uL (4.8-10.8)
[2025-03-19 07:12] LABS: Alanine Aminotransferase 32 U/L (0-40); Albumin Level 4.2 g/dL (3.5-5.0); Alkaline Phosphatase 60 U/L (39-117); Anion Gap 14 (12-20); Aspartate Amino Transferase 63 U/L (5-37); Blood Urea Nitrogen 44 mg/dL (9-16); Calcium 8.9 mg/dL (8.4-10.2); Carbon Dioxide 26 mmol/L (22-29); Chloride 107 mmol/L (96-108); Creatinine Clr Calc Pharmacy 44.3; Estimated Glomerular Filt Rate 38; Potassium 4.5 mmol/L (3.3-5.1); Sodium 142 mmol/L (135-145); Total Protein 7.0 g/dL (6.5-8.0)
[2025-03-19] MEDS: Rivaroxaban 15 MG TABLET PO (09:02)
[2025-03-19] MEDS: buPROPion HCl XL 300 MG TAB.ER.24H PO (09:02)
[2025-03-19] MEDS: 0.9 % Sodium Chloride Flush 3 ML SYRINGE IVFLUSH ×2 (09:05→20:20)
--- NOTE | 2025-03-19 11:58 | MHC.CM.PN ---
Addendum entered by Karen Dean 03/19/25 13:05: Patient is NOT yet medically cleared for dc (IV ABX X2, IV Solu Medrol). Original Note: Per ROUNDS discussion, Patient may be medically cleared for dc today; home is the goal and CM will continue to follow.
--- NOTE | 2025-03-19 12:43 | HO.PM.IMPN ---
Subjective Subjective Date of Service: 03/19/25 Interval History: Slowly progressing. Still with O2 requirement. Dyspnea with exertion noted Review of Systems Denies chest pain Admits shortness of breath that has improved since admission Denies nausea vomiting diarrhea Denies fever chills Physical Exam Vital Signs: Vital Signs: Last Vital Signs Temp 97.5 F 03/19/25 11:18 Pulse 102 H 03/19/25 11:27 Resp 18 03/19/25 11:27 BP 115/71 03/19/25 11:18 Pulse Ox 92 03/19/25 11:18 O2 Del Method Nasal Cannula 03/19/25 11:18 O2 Flow Rate 2 03/19/25 11:18 FiO2 30 03/17/25 16:56 Oxygen Flow Rate 6 03/17/25 04:12 BMI result Body Mass Index 29.9 Const: Other: Awake alert oriented x3 breathing comfortably on room air Resp: Other: Diminished at bases with scattered expiratory wheezes throughout Cardio: Other: No S4; positive S1-S2; no S3 murmurs rubs or gallops GI: Other: Soft nontender nondistended normoactive bowel sounds Neuro: Other: Cranial nerves 2-12 grossly intact as tested. Motor is 5/5 all extremities. Sensation is intact. Cognition appropriate. Gait not observed Extrem: Other: No edema bilaterally Objective Data Active Medications Acetaminophen (Acetaminophen 325 Mg Tablet) 650 mg PO Q6H PRN PRN Reason: Pain, Mild 1-3,fever,headache Last Admin: 03/19/25 09:03 Dose: 650 mg Documented By: NOHEMI Albuterol/Ipratropium (Albuterol/Iprat 2.5/0.5mg 3 Ml Ampul.Neb) 3 ml INHALE Q4H PRN PRN Reason: Shortness of Breath/Wheezing Last Admin: 03/18/25 23:14 Dose: 3 ml Documented By: ZARIA Atorvastatin Calcium (Atorvastatin Calcium 40 Mg Tablet) 40 mg PO BEDTIME [facility] Last Admin: 03/18/25 21:27 Dose: 40 mg Documented By: ZARIA Bupropion HCl (Bupropion Hcl Xl 300 Mg Tab.Er.24h) 300 mg PO DAILY [facility] Last Admin: 03/19/25 09:02 Dose: 300 mg Documented By: NOHEMI Calcium Carbonate (Calcium Carbonate 750 Mg Tab.Chew) 750 mg PO Q4H PRN PRN Reason: Heartburn Ceftriaxone Sodium (Ceftriaxone Sodium 1 Gm Vial) 1 gm IVPUSH Q24H [facility] Last Admin: 03/18/25 15:12 Dose: 1 gm Documented By: SHANE Clonazepam (Clonazepam 1 Mg Tablet) 1 mg PO BID PRN PRN Reason: Anxiety Last Admin: 03/18/25 04:28 Dose: 1 mg Documented By: YONNY Levalbuterol HCl 1.25 mg/ (Ipratropium [place] 0.5 mg) 0 mg INHALE Q4H [facility] Last Admin: 03/19/25 11:26 Dose: 1 dose Documented By: NIELS Dolutegravir Sodium (Dolutegravir Sodium 50 Mg Tablet) 50 mg PO DAILY [facility] Last Admin: 03/19/25 09:02 Dose: 50 mg Documented By: NOHEMI Doxazosin Mesylate (Doxazosin Mesylate 2 Mg Tablet) 4 mg PO BEDTIME [facility]; Protocol Last Admin: 03/18/25 21:27 Dose: 4 mg Documented By: ZARIA Escitalopram Oxalate (Escitalopram Oxalate 20 Mg Tablet) 20 mg PO DAILY [facility] Last Admin: 03/19/25 09:02 Dose: 20 mg Documented By: NOHEMI Doxycycline Hyclate 100 mg/ (Sodium Chloride) 250 mls @ 166.67 mls/hr IV Q12H [facility] Last Infusion: 03/19/25 04:56 Dose: Infused Documented By: ZARIA Lamivudine (Lamivudine 150 Mg Tablet) 300 mg PO DAILY [facility] Last Admin: 03/19/25 09:00 Dose: 300 mg Documented By: NOHEMI Levothyroxine Sodium (Levothyroxine Sodium 50 Mcg Tablet) 50 mcg PO DAILY@0600 [facility] Last Admin: 03/19/25 06:08 Dose: 50 mcg Documented By: ZARIA Magnesium Hydroxide (Milk Of Magnesia 30 Ml Oral.Susp) 30 ml PO DAILY PRN PRN Reason: Constipation Melatonin (Melatonin 3 Mg Tablet) 6 mg PO BEDTIME PRN PRN Reason: Insomnia Methylprednisolone Sodium Succinate (Methylprednisolone Sod Succ 125 Mg/2 Ml Vial) 60 mg IVPUSH Q6H [facility] Last Admin: 03/19/25 06:08 Dose: 60 mg Documented By: ZARIA Non-Formulary Medication (Entecavir) 0.5 mg PO DAILY [facility] Omeprazole (Omeprazole 20 Mg Capsule.Dr) 20 mg PO DAILY@0630 [facility] Last Admin: 03/19/25 06:08 Dose: 20 mg Documented By: ZARIA Ondansetron HCl (Ondansetron Hcl 4 Mg/2 Ml Vial) 4 mg IVPUSH Q8H PRN PRN Reason: Nausea and Vomiting Oxycodone HCl (Oxycodone Hcl Immed Release 5 Mg Tablet) 5 mg PO Q6H PRN PRN Reason: Pain, Moderate(Pain Scale 4-6) Last Admin: 03/18/25 00:03 Dose: 5 mg Documented By: YONNY Quetiapine Fumarate (Quetiapine Fumarate 200 Mg Tablet) 200 mg PO BID [facility] Last Admin: 03/19/25 09:02 Dose: 200 mg Documented By: NOHEMI Rivaroxaban (Rivaroxaban 15 Mg Tablet) 15 mg PO DAILY [facility] Last Admin: 03/19/25 09:02 Dose: 15 mg Documented By: NOHEMI Sodium Chloride (0.9 % Sodium Chloride Flush 3 Ml Syringe) 3 ml IVFLUSH QSHIFT [facility] Last Admin: 03/19/25 09:05 Dose: 3 ml Documented By: NOHEMI Trazodone HCl (Trazodone Hcl 50 Mg Tablet) 50 mg PO BEDTIME [facility] Last Admin: 03/18/25 21:27 Dose: 50 mg Documented By: ZARIA Labs 03/19/25 06:11 03/19/25 06:11 Labs: Laboratory Results - last 24 hr 03/19/25 06:11 MCV 94.1 MCH 31.8 MCHC 33.8 RDW 15.7 Plt Count 151 L MPV 10.2 Immature Gran % (Auto) 1.4 H Neut % (Auto) 90.0 H Lymph % (Auto) 5.3 L [place] % (Auto) 3.2 Eos % (Auto) 0.0 Baso % (Auto) 0.1 Lymph # (Auto) 0.8 L [place] # (Auto) 0.5 Eos # (Auto) 0.0 Baso # (Auto) 0.0 Abs Immat Gran (auto) 0.21 H Absolute Neuts (auto) 13.4 H Absolute Nucleated RBC 0.000 Nucleated RBC % (auto) 0.0 Anion Gap 14 Estim Creat Clear Calc 44.3 Estimated GFR 38 Random Glucose 141 H Calcium 8.9 Total Bilirubin 0.3 AST 63 H ALT 32 Alkaline Phosphatase 60 Total Protein 7.0 Albumin 4.2 Microbiology Microbiology Results: Microbiology 03/17/25 04:22 Blood Culture - Preliminary Blood - Venous No growth after 48 hours. 03/17/25 04:22 Blood Culture - Preliminary Blood - Venous No growth after 48 hours. Assessment and Plan (1) Acute exacerbation of chronic obstructive pulmonary disease: Status: Acute (2) HIV (human immunodeficiency virus infection): Status: Acute Plan 69-year-old male with history of non oxygen dependent COPD, CHF, ischemic cardiomyopathy status post multiple stent placement presenting with shortness of breath that has been ongoing for the last several days and worsening over the last 24 hours. Required BiPAP on admission but has subsequently been weaned to room air. 1. Acute hypoxic respiratory failure secondary to acute exacerbation of COPD -ceftriaxone/doxycycline (3) -methylprednisolone 125 mg initially followed by 60 mg IV q.6 hours -DuoNebs q.4 hours while awake -titrate O2 to maintain sats greater than or equal to 90% -encourage ambulation 2. Acute on chronic renal insufficiency in backdrop of CKD 3 -appears to be at baseline.....1.81 -follow renals/divalents -adjust therapies as clinically indicated 3. HIV -stable well compensated -continue outpatient therapies 4. Ischemic cardiomyopathy (by history) -BNP normal -continue outpatient therapies; adjust as indicated 5. History DVT/PE -continue Xarelto at outpatient dosing Full code Xarelto Patient will require at least 2 midnights going forward of inpatient stay for IV antibiotics and IV steroids to treat acute exacerbation of COPD. This can not be achieved a lesser acute setting Quality Stroke Does the patient have a stroke diagnosis?: No VTE Prior VTE?: Yes VTE Risk Level:: Medical - moderate - high VTE Device Contraindication: Treatment Not Indicated VTE Drug Contraindication: N/A - Med Ordered
[2025-03-19] MEDS: Albuterol/Iprat 2.5/0.5MG 3 ML AMPUL.NEB INHALE (18:21)
[2025-03-20] VITALS (11 sets, daily range): BP systolic 128–140; BP diastolic 65–89; PULSE 77–99; RESP 16–20; TEMP 36.2–37.1; O2SAT 90–98
[2025-03-20] MEDS: levalbuterol HCL 1.25 MG, Ipratropium Bromide 0.5 MG INHALE ×5 (04:10→20:16)
--- NOTE | 2025-03-20 07:25 | HE.PHANOTE ---
DOXY IV TO PO INTERCHANGE PATIENT MEETS PROTOCOL FOR IV TO PO DOXY CHANGED FROM 100MG BID IV TO PO. NEXT DOSE 03/20 @ 2100
[2025-03-20 08:52] LABS: MANUAL DIFF FLAG NO
[2025-03-20 08:56] LABS: Hematocrit 39.3 % (42.0-52.0); Hemoglobin 13.3 g/dl (14.0-18.0); Imm Gran Abs Auto 0.30 X10*3/uL (0.00-0.03); Imm Gran Pct Auto 2.2 % (0.0-0.4); Lymphocytes Absolute Auto 0.8 X10*3/uL (1.2-4.9); Mean Corpuscular HGB Conc 33.8 g/dl (31.0-36.0); Mean Corpuscular Hemoglobin 31.5 pg (27.0-33.0); Mean Corpuscular Volume 93.1 fL (80.0-98.0); NRBC Abs Auto 0.000 X10*3/uL (0.0-0.012); NRBC Pct Auto 0.0 /100WBC (0.0-0.2); Platelet Count 146 X10*3/uL (160-400); Red Blood Count 4.22 X10*6/uL (4.60-5.80); White Blood Count 13.4 X10*3/uL (4.8-10.8)
[2025-03-20 09:26] LABS: Alanine Aminotransferase 33 U/L (0-40); Albumin Level 4.0 g/dL (3.5-5.0); Alkaline Phosphatase 58 U/L (39-117); Anion Gap 16 (12-20); Aspartate Amino Transferase 46 U/L (5-37); Blood Urea Nitrogen 42 mg/dL (9-16); Calcium 8.2 mg/dL (8.4-10.2); Carbon Dioxide 21 mmol/L (22-29); Chloride 109 mmol/L (96-108); Creatinine Clr Calc Pharmacy 46.9; Estimated Glomerular Filt Rate 40; Potassium 3.9 mmol/L (3.3-5.1); Sodium 142 mmol/L (135-145); Total Protein 6.7 g/dL (6.5-8.0)
[2025-03-20] MEDS: Rivaroxaban 15 MG TABLET PO (09:40)
[2025-03-20] MEDS: buPROPion HCl XL 300 MG TAB.ER.24H PO (09:40)
[2025-03-20] MEDS: 0.9 % Sodium Chloride Flush 3 ML SYRINGE IVFLUSH ×3 (09:41→21:52)
--- NOTE | 2025-03-20 13:30 | HO.PM.IMPN ---
Subjective Subjective Date of Service: 03/20/25 Interval History: Improving but still short of breath with exertion. No acute events overnight Review of Systems Denies chest pain Admits shortness of breath that has improved since admission Denies nausea vomiting diarrhea Denies fever chills Physical Exam Vital Signs: Vital Signs: Last Vital Signs Temp 97.8 F 03/20/25 11:18 Pulse 98 03/20/25 11:18 Resp 18 03/20/25 11:18 BP 128/89 03/20/25 11:18 Pulse Ox 96 03/20/25 11:18 O2 Del Method Nasal Cannula 03/20/25 11:18 O2 Flow Rate 2 03/20/25 11:18 FiO2 30 03/17/25 16:56 Oxygen Flow Rate 6 03/17/25 04:12 BMI result Body Mass Index 29.9 Const: Other: Awake alert oriented x3 breathing comfortably on room air Resp: Other: Diminished at bases with scattered expiratory wheezes throughout Cardio: Other: No S4; positive S1-S2; no S3 murmurs rubs or gallops GI: Other: Soft nontender nondistended normoactive bowel sounds Neuro: Other: Cranial nerves 2-12 grossly intact as tested. Motor is 5/5 all extremities. Sensation is intact. Cognition appropriate. Gait not observed Extrem: Other: No edema bilaterally Objective Data Active Medications Acetaminophen (Acetaminophen 325 Mg Tablet) 650 mg PO Q6H PRN PRN Reason: Pain, Mild 1-3,fever,headache Last Admin: 03/20/25 09:41 Dose: 650 mg Documented By: JOHNATHAN Albuterol/Ipratropium (Albuterol/Iprat 2.5/0.5mg 3 Ml Ampul.Neb) 3 ml INHALE Q4H PRN PRN Reason: Shortness of Breath/Wheezing Last Admin: 03/19/25 18:21 Dose: 3 ml Documented By: NIELS Albuterol/Ipratropium (Albuterol/Iprat 2.5/0.5mg 3 Ml Ampul.Neb) 3 ml INHALE Q4H PRN PRN Reason: Wheezing Atorvastatin Calcium (Atorvastatin Calcium 40 Mg Tablet) 40 mg PO BEDTIME [facility] Last Admin: 03/19/25 20:19 Dose: 40 mg Documented By: MARGUERITE Benzonatate (Benzonatate 100 Mg Capsule) 200 mg PO TID PRN PRN Reason: Cough Last Admin: 03/20/25 09:41 Dose: 200 mg Documented By: JOHNATHAN Bupropion HCl (Bupropion Hcl Xl 300 Mg Tab.Er.24h) 300 mg PO DAILY [facility] Last Admin: 03/20/25 09:40 Dose: 300 mg Documented By: JOHNATHAN Calcium Carbonate (Calcium Carbonate 750 Mg Tab.Chew) 750 mg PO Q4H PRN PRN Reason: Heartburn Ceftriaxone Sodium (Ceftriaxone Sodium 1 Gm Vial) 1 gm IVPUSH Q24H [facility] Last Admin: 03/19/25 15:21 Dose: 1 gm Documented By: FOSTEKJenise Clonazepam (Clonazepam 1 Mg Tablet) 1 mg PO BID PRN PRN Reason: Anxiety Last Admin: 03/18/25 04:28 Dose: 1 mg Documented By: YONNY Levalbuterol HCl 1.25 mg/ (Ipratropium [place] 0.5 mg) 0 mg INHALE Q4H [facility] Last Admin: 03/20/25 11:00 Dose: 1 dose Documented By: DINA Dolutegravir Sodium (Dolutegravir Sodium 50 Mg Tablet) 50 mg PO DAILY [facility] Last Admin: 03/20/25 09:41 Dose: 50 mg Documented By: JOHNATHAN Doxazosin Mesylate (Doxazosin Mesylate 2 Mg Tablet) 4 mg PO BEDTIME [facility]; Protocol Last Admin: 03/19/25 20:19 Dose: 4 mg Documented By: MARGUERITE Doxycycline Monohydrate (Doxycycline Monohydrate 100 Mg Capsule) 100 mg PO Q12H [facility] Escitalopram Oxalate (Escitalopram Oxalate 20 Mg Tablet) 20 mg PO DAILY [facility] Last Admin: 03/20/25 09:41 Dose: 20 mg Documented By: JOHNATHAN Lamivudine (Lamivudine 150 Mg Tablet) 300 mg PO DAILY [facility] Last Admin: 03/20/25 09:41 Dose: 300 mg Documented By: JOHNATHAN Levothyroxine Sodium (Levothyroxine Sodium 50 Mcg Tablet) 50 mcg PO DAILY@0600 [facility] Last Admin: 03/20/25 06:05 Dose: 50 mcg Documented By: MARGUERITE Magnesium Hydroxide (Milk Of Magnesia 30 Ml Oral.Susp) 30 ml PO DAILY PRN PRN Reason: Constipation Melatonin (Melatonin 3 Mg Tablet) 6 mg PO BEDTIME PRN PRN Reason: Insomnia Methylprednisolone Sodium Succinate (Methylprednisolone Sod Succ 125 Mg/2 Ml Vial) 60 mg IVPUSH Q6H [facility] Last Admin: 03/20/25 11:57 Dose: 60 mg Documented By: JOHNATHAN Non-Formulary Medication (Entecavir) 0.5 mg PO DAILY [facility] Omeprazole (Omeprazole 20 Mg Capsule.Dr) 20 mg PO DAILY@0630 [facility] Last Admin: 03/20/25 06:05 Dose: 20 mg Documented By: MARGUERITE Ondansetron HCl (Ondansetron Hcl 4 Mg/2 Ml Vial) 4 mg IVPUSH Q8H PRN PRN Reason: Nausea and Vomiting Last Admin: 03/20/25 03:49 Dose: 4 mg Documented By: MARGUERITE Oxycodone HCl (Oxycodone Hcl Immed Release 5 Mg Tablet) 5 mg PO Q6H PRN PRN Reason: Pain, Moderate(Pain Scale 4-6) Last Admin: 03/18/25 00:03 Dose: 5 mg Documented By: YONNY Quetiapine Fumarate (Quetiapine Fumarate 200 Mg Tablet) 200 mg PO BID [facility] Last Admin: 03/20/25 09:41 Dose: 200 mg Documented By: JOHNATHAN Rivaroxaban (Rivaroxaban 15 Mg Tablet) 15 mg PO DAILY [facility] Last Admin: 03/20/25 09:40 Dose: 15 mg Documented By: JOHNATHAN Sodium Chloride (0.9 % Sodium Chloride Flush 3 Ml Syringe) 3 ml IVFLUSH QSHIFT [facility] Last Admin: 03/20/25 09:41 Dose: 3 ml Documented By: JOHNATHAN Trazodone HCl (Trazodone Hcl 50 Mg Tablet) 50 mg PO BEDTIME [facility] Last Admin: 03/19/25 20:19 Dose: 50 mg Documented By: MARGUERITE Labs 03/20/25 08:29 03/20/25 08:29 Labs: Laboratory Results - last 24 hr 03/20/25 08:29 MCV 93.1 MCH 31.5 MCHC 33.8 RDW 15.5 Plt Count 146 L MPV 9.8 Immature Gran % (Auto) 2.2 H Neut % (Auto) 88.2 H Lymph % (Auto) 5.8 L [place] % (Auto) 3.7 Eos % (Auto) 0.0 Baso % (Auto) 0.1 Lymph # (Auto) 0.8 L [place] # (Auto) 0.5 Eos # (Auto) 0.0 Baso # (Auto) 0.0 Abs Immat Gran (auto) 0.30 H Absolute Neuts (auto) 11.8 H Absolute Nucleated RBC 0.000 Nucleated RBC % (auto) 0.0 Anion Gap 16 Estim Creat Clear Calc 46.9 Estimated GFR 40 Fasting Glucose 111 H Calcium 8.2 L D Total Bilirubin 0.4 AST 46 H ALT 33 Alkaline Phosphatase 58 Total Protein 6.7 Albumin 4.0 Assessment and Plan (1) Acute exacerbation of chronic obstructive pulmonary disease: Status: Acute (2) HIV (human immunodeficiency virus infection): Status: Acute (3) Acute on chronic renal insufficiency: Status: Acute Plan 69-year-old male with history of non oxygen dependent COPD, CHF, ischemic cardiomyopathy status post multiple stent placement presenting with shortness of breath that has been ongoing for the last several days and worsening over the last 24 hours. Required BiPAP on admission but has subsequently been weaned to room air. 1. Acute hypoxic respiratory failure secondary to acute exacerbation of COPD -ceftriaxone/doxycycline (4) -Tessalon [place] with good effect -methylprednisolone 125 mg initially followed by 60 mg IV q.6 hours -DuoNebs q.4 hours while awake -titrate O2 to maintain sats greater than or equal to 90% -encourage ambulation... 2. Acute on chronic renal insufficiency in backdrop of CKD 3 -appears to be at baseline.....1.81 -follow renals/divalents -adjust therapies as clinically indicated 3. HIV -stable well compensated -continue outpatient therapies 4. Ischemic cardiomyopathy (by history) -BNP normal -continue outpatient therapies; adjust as indicated 5. History DVT/PE -continue Xarelto at outpatient dosing Full code Xarelto Quality Stroke Does the patient have a stroke diagnosis?: No VTE Prior VTE?: Yes VTE Risk Level:: Medical - moderate - high VTE Device Contraindication: Treatment Not Indicated VTE Drug Contraindication: N/A - Med Ordered
--- NOTE | 2025-03-20 14:42 | P.CDIM_ITS ---
PROVIDER RESPONSE TEXT: To clarify, the appropriate diagnosis supported by the clinical indicators: Acute lactic acidosis: resolved QUERY TEXT: PHYSICIAN'S DOCUMENTATION REQUEST Date of Query: 03/19/2025 07:39 AM EDT Patient Name: Ryder Miller Admit Date: 03/17/2025 Dear Tan Rodriguez DO, A review of the medical record indicates additional documentation may be needed. Please review below and update the documentation accordingly. Clinical Indicators: LABS: Lactic acid 3.8 H 5.0 H* Fluids Based on the above, is there a diagnosis that correlates with these findings? Acute lactic acidosis resolved, possible, probable, suspected etc. Labs indicate a diagnosis of (please specify) Other (explain) Clinically unable to determine (explain) Thank you, Theresa Tolentino, CCS, CDIS Use of terms such as suspected, likely, concern for, or probable (associated with a specific diagnosis that is being evaluated, monitored, or treated as if it exists) are acceptable and can be coded in the inpatient setting, when documented at the time of discharge. Please use your independent medical judgment in providing your response. THIS QUERY IS PART OF THE PERMANENT MEDICAL RECORD
[2025-03-20] MEDS: ENTECAVIR 0.5 MG 0.5 EACH PO (16:04)
[2025-03-21] VITALS (11 sets, daily range): BP systolic 126–154; BP diastolic 72–82; PULSE 59–116; RESP 16–20; TEMP 36.2–37.2; O2SAT 92–96
[2025-03-21] MEDS: levalbuterol HCL 1.25 MG, Ipratropium Bromide 0.5 MG INHALE ×6 (01:22→23:42)
[2025-03-21] MEDS: buPROPion HCl XL 300 MG TAB.ER.24H PO (08:42)
[2025-03-21] MEDS: Rivaroxaban 15 MG TABLET PO (08:42)
[2025-03-21] MEDS: ENTECAVIR 0.5 MG 0.5 EACH PO (08:42)
[2025-03-21] MEDS: 0.9 % Sodium Chloride Flush 3 ML SYRINGE IVFLUSH ×3 (08:43→22:03)
--- NOTE | 2025-03-21 12:17 | P.PNIM_ITS ---
Subjective Subjective Date of Service: 03/21/25 Interval History: Still endorsing shortness of breath with minimal exertion. Anxiety acute component Review of Systems Denies chest pain Admits shortness of breath that has improved since admission Denies nausea vomiting diarrhea Denies fever chills Physical Exam 2 Vital Signs: Vital Signs: Last Vital Signs Temp 97.2 F 03/21/25 11:41 Pulse 89 03/21/25 11:41 Resp 20 03/21/25 11:41 BP 133/79 03/21/25 11:41 Pulse Ox 96 03/21/25 11:41 O2 Del Method Nasal Cannula 03/21/25 11:41 O2 Flow Rate 4 03/21/25 11:41 FiO2 30 03/17/25 16:56 Oxygen Flow Rate 6 03/17/25 04:12 BMI result Body Mass Index 29.9 Const: Other: Awake alert oriented x3 breathing comfortably on room air Resp: Other: Diminished at bases with scattered expiratory wheezes throughout Cardio: Other: No S4; positive S1-S2; no S3 murmurs rubs or gallops GI: Other: Soft nontender nondistended normoactive bowel sounds Neuro: Other: Cranial nerves 2-12 grossly intact as tested. Motor is 5/5 all extremities. Sensation is intact. Cognition appropriate. Gait not observed Extrem: Other: No edema bilaterally Objective Data Active Medications Acetaminophen (Acetaminophen 325 Mg Tablet) 650 mg PO Q6H PRN PRN Reason: Pain, Mild 1-3,fever,headache Last Admin: 03/21/25 08:42 Dose: 650 mg Documented By: JOHNATHAN Albuterol/Ipratropium (Albuterol/Iprat 2.5/0.5mg 3 Ml Ampul.Neb) 3 ml INHALE Q4H PRN PRN Reason: Shortness of Breath/Wheezing Last Admin: 03/19/25 18:21 Dose: 3 ml Documented By: NIELS Albuterol/Ipratropium (Albuterol/Iprat 2.5/0.5mg 3 Ml Ampul.Neb) 3 ml INHALE Q4H PRN PRN Reason: Wheezing Atorvastatin Calcium (Atorvastatin Calcium 40 Mg Tablet) 40 mg PO BEDTIME RONA Last Admin: 03/20/25 21:50 Dose: 40 mg Documented By: MARGUERITE Benzonatate (Benzonatate 100 Mg Capsule) 200 mg PO TID PRN PRN Reason: Cough Last Admin: 03/21/25 08:42 Dose: 200 mg Documented By: JOHNATHAN Bupropion HCl (Bupropion Hcl Xl 300 Mg Tab.Er.24h) 300 mg PO DAILY [facility] Last Admin: 03/21/25 08:42 Dose: 300 mg Documented By: JOHNATHAN Calcium Carbonate (Calcium Carbonate 750 Mg Tab.Chew) 750 mg PO Q4H PRN PRN Reason: Heartburn Ceftriaxone Sodium (Ceftriaxone Sodium 1 Gm Vial) 1 gm IVPUSH Q24H [facility] Last Admin: 03/20/25 16:04 Dose: 1 gm Documented By: JOHNATHAN Clonazepam (Clonazepam 1 Mg Tablet) 1 mg PO BID PRN PRN Reason: Anxiety Last Admin: 03/18/25 04:28 Dose: 1 mg Documented By: YONNY Levalbuterol HCl 1.25 mg/ (Ipratropium Ackerman 0.5 mg) 0 mg INHALE Q4H [facility] Last Admin: 03/21/25 11:22 Dose: 1 dose Documented By: DINA Dolutegravir Sodium (Dolutegravir Sodium 50 Mg Tablet) 50 mg PO DAILY [facility] Last Admin: 03/21/25 08:42 Dose: 50 mg Documented By: JOHNATHAN Doxazosin Mesylate (Doxazosin Mesylate 2 Mg Tablet) 4 mg PO BEDTIME [facility]; Protocol Last Admin: 03/20/25 21:50 Dose: 4 mg Documented By: MARGUERITE Doxycycline Monohydrate (Doxycycline Monohydrate 100 Mg Capsule) 100 mg PO Q12H [facility] Last Admin: 03/21/25 08:42 Dose: 100 mg Documented By: JOHNATHAN Escitalopram Oxalate (Escitalopram Oxalate 20 Mg Tablet) 20 mg PO DAILY [facility] Last Admin: 03/21/25 08:42 Dose: 20 mg Documented By: JOHNATHAN Lamivudine (Lamivudine 150 Mg Tablet) 300 mg PO DAILY [facility] Last Admin: 03/21/25 08:42 Dose: 300 mg Documented By: JOHNATHAN Levothyroxine Sodium (Levothyroxine Sodium 50 Mcg Tablet) 50 mcg PO DAILY@0600 [facility] Last Admin: 03/21/25 05:57 Dose: 50 mcg Documented By: MARGUERITE Magnesium Hydroxide (Milk Of Magnesia 30 Ml Oral.Susp) 30 ml PO DAILY PRN PRN Reason: Constipation Melatonin (Melatonin 3 Mg Tablet) 6 mg PO BEDTIME PRN PRN Reason: Insomnia Methylprednisolone Sodium Succinate (Methylprednisolone Sod Succ 125 Mg/2 Ml Vial) 60 mg IVPUSH Q6H [facility] Last Admin: 03/21/25 11:51 Dose: 60 mg Documented By: JOHNATHAN Patient Own Med ( Entecavir 0.5 Mg Tablet) 0.5 mg PO DAILY [facility] Last Admin: 03/21/25 08:42 Dose: 0.5 mg Documented By: JOHNATHAN Omeprazole (Omeprazole 20 Mg Capsule.Dr) 20 mg PO DAILY@0630 [facility] Last Admin: 03/21/25 05:57 Dose: 20 mg Documented By: MARGUERITE Ondansetron HCl (Ondansetron Hcl 4 Mg/2 Ml Vial) 4 mg IVPUSH Q8H PRN PRN Reason: Nausea and Vomiting Last Admin: 03/20/25 03:49 Dose: 4 mg Documented By: AMRGUERITE Oxycodone HCl (Oxycodone Hcl Immed Release 5 Mg Tablet) 5 mg PO Q6H PRN PRN Reason: Pain, Moderate(Pain Scale 4-6) Last Admin: 03/18/25 00:03 Dose: 5 mg Documented By: YONNY Quetiapine Fumarate (Quetiapine Fumarate 200 Mg Tablet) 200 mg PO BID [facility] Last Admin: 03/21/25 08:43 Dose: 200 mg Documented By: JOHNATHAN Rivaroxaban (Rivaroxaban 15 Mg Tablet) 15 mg PO DAILY [facility] Last Admin: 03/21/25 08:42 Dose: 15 mg Documented By: JOHNATHAN Sodium Chloride (0.9 % Sodium Chloride Flush 3 Ml Syringe) 3 ml IVFLUSH QSHIFT [facility] Last Admin: 03/21/25 08:43 Dose: 3 ml Documented By: JOHNATHAN Trazodone HCl (Trazodone Hcl 50 Mg Tablet) 50 mg PO BEDTIME [facility] Last Admin: 03/20/25 21:50 Dose: 50 mg Documented By: MARGUERITE Labs 03/20/25 08:29 03/20/25 08:29 Assessment and Plan (1) Acute exacerbation of chronic obstructive pulmonary disease: Status: Acute (2) HIV (human immunodeficiency virus infection): Status: Acute (3) Acute on chronic renal insufficiency: Status: Acute Plan 69-year-old male with history of non oxygen dependent COPD, CHF, ischemic cardiomyopathy status post multiple stent placement presenting with shortness of breath that has been ongoing for the last several days and worsening over the last 24 hours. Required BiPAP on admission but has subsequently been weaned to room air. 1. Acute hypoxic respiratory failure secondary to acute exacerbation of COPD -ceftriaxone/doxycycline (5) -Tessalon Perles with good effect -methylprednisolone 125 mg initially followed by 60 mg IV q.6 hours -DuoNebs q.4 hours while awake -titrate O2 to maintain sats greater than or equal to 90% -CTA scan done today secondary to slow recovery demonstrates central lobar emphysema with out infiltrates. Likely new baseline. 2. Acute on chronic renal insufficiency in backdrop of CKD 3 -appears to be at baseline.....1.81 -follow renals/divalents -adjust therapies as clinically indicated 3. HIV -stable well compensated -continue outpatient therapies 4. Ischemic cardiomyopathy (by history) -BNP normal -continue outpatient therapies; adjust as indicated 5. History DVT/PE -continue Xarelto at outpatient dosing Full code Xarelto Quality Stroke Does the patient have a stroke diagnosis?: No VTE Prior VTE?: Yes VTE Risk Level:: Medical - moderate - high VTE Device Contraindication: Treatment Not Indicated VTE Drug Contraindication: N/A - Med Ordered
[2025-03-22] VITALS (7 sets, daily range): BP systolic 125–136; BP diastolic 62–79; PULSE 84–111; RESP 16–20; TEMP 36.2–36.8; O2SAT 92–97
[2025-03-22] MEDS: levalbuterol HCL 1.25 MG, Ipratropium Bromide 0.5 MG INHALE ×2 (04:35→07:41)
[2025-03-22 07:34] LABS: MANUAL DIFF FLAG NO
[2025-03-22 07:43] LABS: Hematocrit 42.2 % (42.0-52.0); Hemoglobin 14.4 g/dl (14.0-18.0); Imm Gran Abs Auto 0.39 X10*3/uL (0.00-0.03); Imm Gran Pct Auto 3.8 % (0.0-0.4); Lymphocytes Absolute Auto 0.9 X10*3/uL (1.2-4.9); Mean Corpuscular HGB Conc 34.1 g/dl (31.0-36.0); Mean Corpuscular Hemoglobin 32.1 pg (27.0-33.0); Mean Corpuscular Volume 94.2 fL (80.0-98.0); NRBC Abs Auto 0.000 X10*3/uL (0.0-0.012); NRBC Pct Auto 0.0 /100WBC (0.0-0.2); Platelet Count 138 X10*3/uL (160-400); Red Blood Count 4.48 X10*6/uL (4.60-5.80); White Blood Count 10.3 X10*3/uL (4.8-10.8)
[2025-03-22 08:04] LABS: Alanine Aminotransferase 34 U/L (0-40); Albumin Level 3.9 g/dL (3.5-5.0); Alkaline Phosphatase 52 U/L (39-117); Anion Gap 14 (12-20); Aspartate Amino Transferase 40 U/L (5-37); Blood Urea Nitrogen 42 mg/dL (9-16); Calcium 8.2 mg/dL (8.4-10.2); Carbon Dioxide 25 mmol/L (22-29); Chloride 109 mmol/L (96-108); Creatinine Clr Calc Pharmacy 51.4; Estimated Glomerular Filt Rate 45; Potassium 3.9 mmol/L (3.3-5.1); Sodium 144 mmol/L (135-145); Total Protein 6.7 g/dL (6.5-8.0)
[2025-03-22] MEDS: Rivaroxaban 15 MG TABLET PO (09:07)
[2025-03-22] MEDS: buPROPion HCl XL 300 MG TAB.ER.24H PO (09:08)
[2025-03-22] MEDS: ENTECAVIR 0.5 MG 0.5 EACH PO (09:08)
[2025-03-22] MEDS: 0.9 % Sodium Chloride Flush 3 ML SYRINGE IVFLUSH (09:18)
--- NOTE | 2025-03-22 09:23 | PM.DS ---
DS: Providers Provider Date of Service: 03/22/25 Date of admission: 03/17/25 06:56 Date of discharge: 03/22/25 Primary care physician: Isma May MD DS: Diagnosis Discharge Diagnosis (1) Acute exacerbation of chronic obstructive pulmonary disease: Status: Acute (2) HIV (human immunodeficiency virus infection): Status: Acute (3) Acute on chronic renal insufficiency: Status: Acute DS: Summary Hospital Course Hospital Course: HP as per admitting provider. 69-year-old male with history of non oxygen dependent COPD, CHF, ischemic cardiomyopathy status post multiple stent placement presenting with shortness of breath that has been ongoing for the last several days and worsening over the last 24 hours. EMS reports they arrived to the home to find the patient with a room air oxygen level of 67%. He was immediately placed on supplemental oxygen, given a dose of Solu-Medrol, magnesium and several breathing treatments for which his work of breathing significantly improved. However, upon arrival to the emergency department, he remains tachypneic and wheezing. Place on BiPAP almost immediately. Patient was able to tell me that he has been having worsening shortness of breath since returning to the [facility] several months ago. Admits to hospitalization last year for similar issue. He spent 2 weeks in the hospital at that time. He has never been intubated for his COPD. Describes cough productive of clear and white sputum. No reported fever. No known sick contacts or travel. Denies nausea, vomiting, abdominal pain, bowel changes or urinary complaints. No worsening swelling of the lower extremities. He is on Xarelto.. Successfully weaned off BiPAP in the ER and now stable for admission to general medical floor 69 year old man treated for COPD exacerbation. Treated with Rocephin and Doxycycline empirically, IV solumedrol, scheduled duonebs, titrated off oxygen, CT scan showed Emphysema, no infiltrate. Home oxygen evaluation completed, patient does not require oxygen at home. Plan will be to discharge home with prednisone taper. Acute on chronic renal insufficiency, CKD stage 3. Appears to be at baseline HIV. Well compensated. Continue outpatient therapy Ischemic cardiomyopathy. BNP normal. Continue outpatient therapies History of DVT/PE. Continue Xarelto Time Attestation Discharge Coordination Time (in mins): 40 Quality: Safe Use of Opioids Does Pt have an Active Cancer Diagnosis on the Problem List?: No Quality: Stroke Does the patient have a stroke diagnosis?: No Physical Exam Exam: Exam: Appearing in no acute distress head is normocephalic atraumatic eyes pupils are PERRLA sclera is anicteric mouth throat mucous membranes are intact and moist neck is supple no lymphadenopathy, no JVD noted lung sounds are clear to auscultation heart regular rate rhythm, clear S1, S2 positive bowel sounds, abdomen is soft, nontender neuro patient is alert x3, no focal deficits Vital Signs: Vital Signs: Last Vital Signs Temp 97.8 F 03/22/25 07:29 Pulse 89 03/22/25 07:44 Resp 18 03/22/25 07:44 BP 136/79 03/22/25 07:29 Pulse Ox 93 03/22/25 07:29 O2 Del Method Nasal Cannula 03/22/25 07:29 O2 Flow Rate 3 03/22/25 07:29 FiO2 30 03/17/25 16:56 Oxygen Flow Rate 6 03/17/25 04:12 BMI result Body Mass Index 29.9 DS: Data Data Completed and Pending Labs on day of discharge: Laboratory Results - last 24 hr 03/22/25 06:56 WBC 10.3 RBC 4.48 L Hgb 14.4 Hct 42.2 MCV 94.2 MCH 32.1 MCHC 34.1 RDW 15.0 Plt Count 138 L MPV 10.3 Immature Gran % (Auto) 3.8 H Neut % (Auto) 82.8 H Lymph % (Auto) 8.9 L [place] % (Auto) 4.3 Eos % (Auto) 0.0 Baso % (Auto) 0.2 Lymph # (Auto) 0.9 L [place] # (Auto) 0.4 Eos # (Auto) 0.0 Baso # (Auto) 0.0 Abs Immat Gran (auto) 0.39 H Absolute Neuts (auto) 8.5 H Absolute Nucleated RBC 0.000 Nucleated RBC % (auto) 0.0 Sodium 144 Potassium 3.9 Chloride 109 H Carbon Dioxide 25 Anion Gap 14 BUN 42 H Creatinine 1.56 H Estim Creat Clear Calc 51.4 Estimated GFR 45 Random Glucose 125 H Calcium 8.2 L Total Bilirubin 0.6 AST 40 H ALT 34 Alkaline Phosphatase 52 Total Protein 6.7 Albumin 3.9 Discharge Plan Discharge Anticipated Discharge Date/Time: 03/22/25 09:05 Patient Disposition: Home, Self-Care Discharge Diagnosis: Acute hypoxic respiratory failure secondary to acute COPD exacerbation Acute on chronic renal insufficiency Referrals: Isma May MD [Primary Care Provider, [facility]] - 1 Week Discharge Medications: New prednisone 10 mg tablet See Taper PO DIRECTED Qty: 30 0RF Taper: Prednisone 40 mg daily for 3 Days and 0 Hour 30 mg daily for 3 Days and 0 Hour 20 mg daily for 3 Days and 0 Hour 10 mg daily for 3 Days and 0 Hour Rx Instructions: see taper instructions Continued atorvastatin 40 mg tablet 40 mg PO BEDTIME citalopram 40 mg tablet 40 mg PO DAILY clonazepam 1 mg tablet 1 mg PO BID PRN (Reason: Anxiety) levothyroxine 50 mcg tablet 50 mcg PO DAILY@0600 ketoconazole 2 % cream 1 appl topical DAILY PRN (Reason: Rash) bupropion HCl 300 mg tablet extended release 24 hr 300 mg PO DAILY quetiapine 400 mg tablet extended release 24 hr 400 mg PO BEDTIME Xarelto 15 mg tablet 15 mg PO DAILY doxazosin 2 mg Tablet 4 mg PO BEDTIME Qty: 30 0RF Protocol: Hold for SBP< HOLD for SBP < : 90 omeprazole 20 mg capsule,delayed release(DR/EC) 20 mg PO DAILY Qty: 30 0RF albuterol sulfate 90 mcg/actuation HFA aerosol inhaler 2 puff inhalation Q4-6H PRN (Reason: shortness of breath or wheezing) Qty: 8.5 0RF trazodone 50 mg tablet 50 mg PO BEDTIME ergocalciferol (vitamin D2) 1,250 mcg (50,000 unit) capsule 1,250 mcg PO MO calcitriol 0.25 mcg capsule 0.25 mcg PO DAILY entecavir 0.5 mg tablet 0.5 mg PO DAILY Dovato 50-300 mg tablet 1 tab PO DAILY ascorbic acid (vitamin C) [Vitamin C] 1,000 mg Tablet 1,000 mg PO DAILY cyanocobalamin (vitamin B-12) [Vitamin B-12] 1,000 mcg Tablet 1,000 mcg PO DAILY coenzyme Q10 300 mg Capsule 300 mg PO DAILY cholecalciferol (vitamin D3) [Vitamin D3] 50 mcg (2,000 unit) Tablet 50 mcg PO DAILY One Daily For Men 50 Plus Adv 400-600-120 mcg-mcg-mg Tablet 1 tab PO DAILY biotin 5,000 mcg Tablet,Chewable 1 mcg PO DAILY Fiber Gummies 1 gummy PO DAILY nystatin 100,000 unit/mL suspension 500,000 unit PO QID PRN (Reason: Rash) Discharge Orders: Discharge Order (Routine); Ordered 03/22/25 Ordered By: Michelle Way Diet: Advance to usual diet Activity on Discharge: As tolerated Stand Alone Forms: Patient Portal Discharge page Print Language: Croatian Care Plan Goals: Complete prednisone taper Health Concerns: Acute hypoxic respiratory failure secondary to acute COPD exacerbation Acute on chronic renal insufficiency Plan of Treatment: Follow up with primary care provider as needed Take all medications as prescribed Assessment: See discharge summary
--- NOTE | 2025-03-22 10:55 | MHC.CM.PN ---
Patient is medically cleared to discharge today. He is discharged to home self care. He has arranged for transportation home.
--- NOTE | 2025-04-01 16:50 | P.CDIM_ITS ---
PROVIDER RESPONSE TEXT: To clarify, the appropriate diagnosis supported by the clinical indicators: Clinically unable to determine (explain): not active at that time QUERY TEXT: PHYSICIAN'S DOCUMENTATION REQUEST Date of Query: 03/19/2025 08:58 AM EDT Patient Name: Ryder Miller Admit Date: 03/17/2025 Dear Tan Rodriguez DO, A review of the medical record indicates additional documentation may be needed. Please review below and update the documentation accordingly. Clinical Indicators: Progress note dated 03/18/25 - H Congestive heart failure BNP 72 ED: Holding off on 30 cc/kg fluid bolus at this time given his history of CHF. Will give a small fluid bolus at 500 ml, 999 mL/hour. Please provide further specificity regarding the most likely type and acuity of CHF documented within the medical record? Systolic Please specify if Acute, Chronic, or Acute on chronic, or Unable to determine Diastolic Please specify if Acute, Chronic, or Acute on chronic, or Unable to determine Combined Systolic/Diastolic Please specify if Acute, Chronic, or Acute on chronic, or Unable to determine Other (explain) Clinically unable to determine (explain) Thank you, Theresa Tolentino, CCS, CDIS Use of terms such as suspected, likely, concern for, or probable (associated with a specific diagnosis that is being evaluated, monitored, or treated as if it exists) are acceptable and can be coded in the inpatient setting, when documented at the time of discharge. Please use your independent medical judgment in providing your response. THIS QUERY IS PART OF THE PERMANENT MEDICAL RECORD
== END 2025-03-22 15:02 | disposition home or self-care (01) | DRG 190 ==
LOC: HO.ED 06:38 → HO.EDOVER 06:57 → HO.IMC 03-18 15:36
PROVIDERS: Hospitalist; Admitting Provider Student in an Organized Health Care Education/Training Program; Emergency Provider Emergency Medicine; PCP Family Medicine; Visit Provider Nurse Practitioner Acute Care
DX: J43.9 Emphysema, unspecified (principal); J96.01 Acute respiratory failure with hypoxia; J96.02 Acute respiratory failure with hypercapnia; N17.9 Acute kidney failure, unspecified; E87.21 Acute metabolic acidosis; I25.5 Ischemic cardiomyopathy; N18.30 Chronic kidney disease, stage 3 unspecified; E03.9 Hypothyroidism, unspecified; Z21 Asymptomatic human immunodeficiency virus [HIV] infection status; Z20.822 Contact with and (suspected) exposure to COVID-19; Z86.718 Personal history of other venous thrombosis and embolism; Z86.711 Personal history of pulmonary embolism; Z86.79 Personal history of other diseases of the circulatory system; Z87.891 Personal history of nicotine dependence; Z79.01 Long term (current) use of anticoagulants; Z79.890 Hormone replacement therapy; Z79.899 Other long term (current) drug therapy
CPT/HCPCS: 36415; 71045; 71250; 80053; 82803; 83605; 83735; 83880; 84484; 85025; 85610; 87040; 87637; 93005; 94640; 99285; J0696; J1271; J2270; J2405; J2919

== ENCOUNTER → 2025-03-17 04:17 | Outpatient (BNV) | payer MEDICARE, MEDICAID, SELFPAY | PROVIDERS: Admitting Provider Student in an Organized Health Care Education/Training Program; Emergency Provider Emergency Medicine; Visit Provider Internal Medicine | DX: R00.0 Tachycardia, unspecified (principal) | CPT/HCPCS: 93010 ==

== ENCOUNTER → 2025-03-17 04:17 | Outpatient (BNV) | payer MEDICARE, MEDICAID, SELFPAY | PROVIDERS: Admitting Provider Student in an Organized Health Care Education/Training Program; Emergency Provider Emergency Medicine; Visit Provider Radiology Vascular & Interventional Radiology | DX: R06.00 Dyspnea, unspecified (principal) | CPT/HCPCS: 71045 ==

== ENCOUNTER 2025-03-17 06:56 | Outpatient (BNV) | payer MEDICARE, MEDICAID, SELFPAY | END 2025-03-21 10:40 | PROVIDERS: Admitting Provider Student in an Organized Health Care Education/Training Program; Emergency Provider Emergency Medicine; PCP Family Medicine; Visit Provider Radiology Diagnostic Radiology | DX: J43.2 Centrilobular emphysema (principal) | CPT/HCPCS: 71250 ==

== ENCOUNTER → 2025-03-17 06:56 | Outpatient (BNV) | payer MEDICARE, MEDICAID, SELFPAY | PROVIDERS: Admitting Provider Student in an Organized Health Care Education/Training Program; Emergency Provider Emergency Medicine; Visit Provider Hospitalist | DX: J96.01 Acute respiratory failure with hypoxia (principal); J96.02 Acute respiratory failure with hypercapnia; J44.1 Chronic obstructive pulmonary disease with (acute) exacerbation; N28.9 Disorder of kidney and ureter, unspecified; N18.9 Chronic kidney disease, unspecified; Z21 Asymptomatic human immunodeficiency virus [HIV] infection status | CPT/HCPCS: 99223 ==